=== PATIENT | female | born 2000 | race African-American/Black ===

== ENCOUNTER → 2023-10-07 15:41 | Outpatient (BNVA) | payer OTHER, SELFPAY | PROVIDERS: PCP Internal Medicine; Visit Provider Surgery ==

== ENCOUNTER → 2023-10-07 15:41 | Outpatient (BNVA) | payer OTHER, SELFPAY | PROVIDERS: PCP Internal Medicine; Visit Provider Surgery ==

== ENCOUNTER 2023-11-02 07:59 | Outpatient (AMB) | payer OTHER, SELFPAY ==
--- NOTE | 2023-11-02 09:24 | MHC.OFFVISWM ---
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 52.4 HPI Details Start time: 9.10am, End time: 9.55am ?I spent 40 minutes speaking with the patient on the phone plus an additional 5 minutes reviewing and updating records for a total of 45 minutes HPI Comments History of Present Illness Details Previous weight loss efforts: none Wakes up: 7am, Sleeps: 11pm Breakfast: skips Lunch: skips Dinner: 4pm (rice, meat) Snacks: 1 time before dinner (apple) Exercise: none Fluids: Coffee: (2 cups/day with sugar), tea: none, soda: regular coke, juice: none, ETOH: 1/week (beer 2 bottles/week) [facility] Medical History (Updated 11/02/23 @ 09:25 by Peewee Shane MD) Morbid obesity Surgical History (Updated 10/07/23 @ 16:11 by Janet Choudhury CMA) No history of previous surgery Social History (Updated 10/07/23 @ 16:11 by Janet Choudhury CMA) Alcohol intake: current Alcohol intake frequency: holidays/special occasions only Patient Tobacco Use Status: Never used Tobacco Assessment & Plan Assessment & Plan (1) Morbid obesity: Code(s): E66.01 - Morbid (severe) obesity due to excess calories Plan: 1.? Plan for lap sleeve gastrectomy. If diaphragmatic or ventral hernias are present at time of surgery, these will be repaired laparoscopically as well. Risks and complications were discussed in detail including possible conversion to an open procedure, anastomotic leak, bleeding requiring transfusion, small bowel obstruction, , DVT and pulmonary embolism, cardiac, or pulmonary complications, as terminal operations supervisor complications such as anastomotic ulcer, insufficient weight loss and vitamin deficiencies. I emphasized the importance of close follow-up, adherence to instructions and good communication. 2. Nutritional counseling. Start with 2 CELEBRATE REBUILD protein (buy at [facility]) shakes (ONE scoop EACH in 8oz low fat unsweetened almond milk each) at 8am-10am and 11am-1pm, 1 protein bar (CELEBRATE protein bars, buy at [facility] [employer]) at 2pm-4pm, dinner at 5pm (10 forks of protein and 10 forks of salad/vegetables) AND TWO more protein bars after dinner at 6pm-8pm and 9pm-11pm. So you do 2 protein shakes, 3 protein bars and one meal per day. Meal to include lean meat (beef, fish, pork, turkey, chicken), or samoan yogurt, or egg whites, or beans with a salad with olive oil and fruits (berries, pears, apples, kiwi). Avoid salt, breads, potatoes, rice, pasta, desserts. 3. Each shake would be drunk slowly, like coffee in a period of 2 hours. 4. Cut each bar in 4 pieces and eat each piece in 30min ?to make each bar last 2 hours. 5. I emphasized the importance of measuring accurately the food portion and measure it when serving the food in plate 6. The meal portions include 10 full-size forks of meat and 10 full-size forks of salad. You always eat the meat portion but you can replace up to 5 forks for salad/vegetables with rice, potatoes or pasta, or a fruit ?if you like. The less you do it the better weight loss will be. 7. One full-size fork is what it can be scooped on the fork without falling aside and not what can be bit with the fork. Use regular forks like those you find in a typical restaurant. 8.? Please send me weight measurements as soon as possible and then once a week. Always include your diet and exercise plan. 9. Start walking outside daily, tracking calories with a goal of 300 calories per day, daily. Goal is to burn 2000 calories per week on exercise, which means either 300 calories daily, or 400 calories 5 days per week, or 500 calories 4 days per week, or 650 calories 3 days per week. 10. The best choice would be to purchase a stationary bike, elliptical or treadmill at home that can track calories. Let me know if you do so I can give you an exercise plan. 11.?It is important of avoiding and for at least 18 months postoperatively and has been discussed at the infosession. 12. Goal is to lose at least 1.5-2lbs per week 13. Goal to lose 10% of your weight before surgery, which is about 31lbs. Ultimate weight goal: 283lbs before surgery 14. Please follow the diet plan exactly without any change. If you don't like something about the plan or you feel hungry you need to communicate with me so I can help you revise the plan. You should not change the plan yourself. Orders: Orders H Pylori Breath Test Today E66.01 - Morbid (severe) obesity due to excess calories Complete Blood Count Auto Diff Today E66.01 - Morbid (severe) obesity due to excess calories Lipid Panel Today E66.01 - Morbid (severe) obesity due to excess calories Zinc Today E66.01 - Morbid (severe) obesity due to excess calories C Reactive Protein Today E66.01 - Morbid (severe) obesity due to excess calories Vitamin B1 Today E66.01 - Morbid (severe) obesity due to excess calories XR chest 2V Today E66.01 - Morbid (severe) obesity due to excess calories FL upper GI w air Today E66.01 - Morbid (severe) obesity due to excess calories Insulin Today E66.01 - Morbid (severe) obesity due to excess calories Hemoglobin A1c Today E66.01 - Morbid (severe) obesity due to excess calories IRON PROFILE Today E66.01 - Morbid (severe) obesity due to excess calories Comprehensive Met. Panel Today E66.01 - Morbid (severe) obesity due to excess calories Vitamin B12 and Folate Today E66.01 - Morbid (severe) obesity due to excess calories Vitamin A Today E66.01 - Morbid (severe) obesity due to excess calories TSH reflex Free T4 Today E66.01 - Morbid (severe) obesity due to excess calories Ferritin Today E66.01 - Morbid (severe) obesity due to excess calories Vitamin D 25-OH Total Today E66.01 - Morbid (severe) obesity due to excess calories US abdomen comp w elastography Today E66.01 - Morbid (severe) obesity due to excess calories ECG 12 lead EKG Today E66.01 - Morbid (severe) obesity due to excess calories Referrals Behavioral Health Referral E66.01 - Morbid (severe) obesity due to excess calories Nutrition/Dietitian Referral E66.01 - Morbid (severe) obesity due to excess calories Telehealth Telehealth Location of provider rendering services: practice address Location of patient: address on file Patient Identification confirmed using: Name, : Yes Telehealth method: voice only Patient verbally consented to treatment: Yes Patient verbally consented to billing insurance company: Yes Patient informed of any privacy concerns related to visit: Yes Minutes spent on Phone/Video with Pt.: 45 Coding Level of Care Code Tele New Pt Level 4 (84327) Diagnoses Morbid obesity E66.01 Time Spent (min) 45
[2023-11-02 09:31] VITALS: BMI 52.3
== END 2023-11-02 10:36 | disposition home or self-care (01) ==
LOC: HO.HBS 07:59
PROVIDERS: PCP Internal Medicine; Visit Provider Surgery
DX: E66.01 Morbid (severe) obesity due to excess calories (principal)
CPT/HCPCS: 99204

== ENCOUNTER → 2023-11-02 07:59 | Outpatient (BNVA) | payer OTHER, SELFPAY | PROVIDERS: PCP Internal Medicine; Visit Provider Surgery ==

== ENCOUNTER 2023-11-09 09:01 | Outpatient (REF) | payer OTHER, SELFPAY ==
--- NOTE | ~2023-11-09 | XR_ITS ---
EXAMINATION: XR CHEST CLINICAL INFORMATION: Morbid obesity due to excess calories. COMPARISON: None available. TECHNIQUE: 2 views of the chest were obtained. FINDINGS: There is no gross pneumothorax. Lung volumes are low. Cardiac silhouette within normal limits. No gross pleural effusion. Limited visualization due to body habitus. No gross focal consolidation to suggest pneumonia. XR/XR chest 2V IMPRESSION: No gross focal consolidation to suggest pneumonia. Limited visualization due to body habitus.
--- NOTE | 2023-11-09 09:14 | ECG_ITS ---
Test Reason : obesity Blood Pressure : / mmHG Vent. Rate : 081 BPM Atrial Rate : 081 BPM P-R Int : 154 ms QRS Dur : 098 ms QT Int : 400 ms P-R-T Axes : 051 039 021 degrees QTc Int : 464 ms Normal sinus rhythm Incomplete right bundle branch block Borderline ECG No previous ECGs available Referred By: Peewee Shane Electronically Signed By:Guillaume Gallegos
[2023-11-09 09:39] LABS: MANUAL DIFF FLAG NO
[2023-11-09 10:15] LABS: Basophils Percent Auto 0.2 % (0-2); Eosinophils Absolute Auto 0.2 X10*3/uL (0.0-0.4); Eosinophils Percent Auto 3.2 % (0-4); Hematocrit 35.5 % (37.0-47.0); Hemoglobin 11.1 g/dl (12.0-16.0); Imm Gran Abs Auto 0.01 X10*3/uL (0.00-0.03); Imm Gran Pct Auto 0.2 % (0.0-0.4); Lymphocytes Absolute Auto 3.3 X10*3/uL (1.2-4.9); Lymphocytes Percent Auto 54.2 % (20-40); Mean Corpuscular HGB Conc 31.3 g/dl (31.0-35.0); Mean Corpuscular Hemoglobin 26.9 pg (27.0-33.0); Mean Corpuscular Volume 86.2 fL (80.0-98.0); Mean Platelet Volume 9.7 fL (9.4-12.3); Monocytes Absolute Auto 0.4 X10*3/uL (0.1-1.2); Monocytes Percent Auto 6.6 % (2-11); Neutrophils Absolute Auto 2.2 x10*3/uL (2.0-8.3); Neutrophils Percent Auto 35.6 % (45-73); Platelet Count 369 X10*3/uL (160-400); Red Blood Count 4.12 X10*6/uL (4.20-5.50); Red Cell Distribution Width 13.6 % (11.0-16.0)
[2023-11-09 10:29] LABS: Estimated Average Glucose 117 mg/dL; Hemoglobin A1c % 5.7 % (<6.0)
[2023-11-09 11:08] LABS: Alanine Aminotransferase 21 U/L (0-31); Albumin Level 3.8 g/dL (3.5-5.0); Alkaline Phosphatase 79 U/L (39-117); Anion Gap 11 (12-20); Aspartate Amino Transferase 17 U/L (5-31); Bilirubin Total 0.3 mg/dL (0.0-1.0); Blood Urea Nitrogen 7 mg/dL (9-16); C Reactive Protein 1.75 mg/dL (< or = 0.50); Calcium 8.8 mg/dL (8.4-10.2); Carbon Dioxide 25 mmol/L (22-29); Chloride 108 mmol/L (96-108); Cholesterol 184 mg/dL (<200); Estimated Glomerular Filt Rate > 60; Glucose Random 83 mg/dL (60-115); HDL Cholesterol 42 mg/dL (>40); Iron 80 mcg/dL (30-160); LDL Cholesterol Calculated 125 mg/dL (<100); Percent Iron Saturation 26 % (15-50); Potassium 3.9 mmol/L (3.3-5.1); Sodium 140 mmol/L (135-145); Total Iron Binding Capacity 309 mcg/dL (228-428); Triglycerides 89 mg/dL (<150); Unsaturated Iron Binding 229 ug/dL
[2023-11-09 11:18] LABS: Ferritin 57 ng/mL (10-122); Insulin 24 uU/mL (2-29); TSH reflex Free T4 1.39 uIU/mL (0.32-4.0); Vitamin D 25-OH Total 7.1 ng/mL (>30)
[2023-11-09 11:26] LABS: Folate 9.3 ng/mL (> or = 4.0); Vitamin B12 214 pg/mL (200-900)
[2023-11-11 23:59] LABS: Zinc 63 mcg/dL (60-130)
[2023-11-13 05:34] LABS: Vitamin A 31 mcg/dL (38-98)
[2023-11-13 10:43] LABS: Vitamin B1 6 nmol/L (8-30)
== END 2023-11-09 09:02 | disposition home or self-care (01) ==
LOC: HO.LAB 09:01
PROVIDERS: Visit Provider Surgery
DX: E66.01 Morbid (severe) obesity due to excess calories (principal)
CPT/HCPCS: 36415; 71046; 80053; 80061; 82306; 82607; 82728; 82746; 83036; 83525; 83540; 84425; 84443; 84590; 84630; 85025; 86140; 93005

== ENCOUNTER → 2023-11-09 09:14 | Outpatient (BNV) | payer OTHER, SELFPAY | PROVIDERS: Visit Provider Internal Medicine Cardiovascular Disease | DX: E66.01 Morbid (severe) obesity due to excess calories (principal) | CPT/HCPCS: 93010 ==

== ENCOUNTER 2023-11-18 08:19 | Outpatient (REF) | payer OTHER, SELFPAY ==
--- NOTE | ~2023-11-18 | US_ITS ---
EXAMINATION: US COMPLETE ABDOMEN WITH LIVER ELASTOGRAPHY CLINICAL INFORMATION: Obesity. COMPARISON: None available. TECHNIQUE: Real-time imaging of the abdominal viscera. Noninvasive ultrasound liver fibrosis assessment is performed using Aster ElastPQ point quantification shear wave elastography (2D-SWE) with a C5-2 MHz transducer. Multiple elastography samples are obtained. Imaging is somewhat limited secondary to difficulty with breathing instructions. FINDINGS: PANCREAS: Normal. The visualized pancreatic head and body are normal in appearance. The remainder of the pancreas is obscured from visualization by the overlying bowel gas. ABDOMINAL AORTA: The proximal and middle aortic segments are normal in caliber. The distal segment is obscured by overlapping bowel gas. INFERIOR VENA CAVA: Visualized portions are normal. LIVER: The liver demonstrates normal size, contour and echogenicity. No focal lesion or intrahepatic biliary duct dilatation. The right lobe measures 17.2 cm in length. The left lobe measures 12.0 cm in length. Portal flow is towards the liver (hepatopetal). Shear wave liver elastography median stiffness is 1.41 m/s (reference: normal median stiffness is 1.3 m/s or less). IQR/median stiffness to assess sampling precision is 0.13 (reference: good quality data set is IQR/median stiffness of 0.15 or less). GALLBLADDER: Multiple layering, shadowing gallstones are seen. The gallbladder is physiologically distended without evidence of sludge, polyps, wall thickening or pericholecystic fluid. COMMON BILE DUCT: Normal in caliber measuring 0.4 cm in diameter. RIGHT KIDNEY: Normal. No hydronephrosis. No renal calculi or focal parenchymal lesions. The kidney measures 12.6 cm in maximum dimension. LEFT KIDNEY: Normal. No hydronephrosis. No renal calculi or focal parenchymal lesions. The kidney measures 10.6 cm in maximum dimension. SPLEEN: Normal. The spleen measures 9.8 cm in maximum dimension. FREE FLUID: None. US/US abdomen comp w elastography IMPRESSION: 1. There is generalized increase in hepatic echotexture, consistent with fatty infiltration or hepatocellular disease. Please correlate clinically. No focal hepatic mass or intrahepatic biliary dilatation is seen. 2. Liver elastography: In the absence of other known clinical signs, measurements rule out compensated advanced chronic liver disease. If there are known clinical signs, further testing may be needed for confirmation. 3. There is cholelithiasis. 4. Technically limited examination, in particular of the abdominal great vessels. REFERENCE: Society of Radiologists in Ultrasound Liver Stiffness Thresholds (2020): LIVER STIFFNESS THRESHOLDS: *Liver Stiffness equal or less than 1.3 m/s: High probability of being normal. *Liver Stiffness less than 1.7 m/s: In the absence of other known clinical signs, rules out compensated advanced chronic liver disease. *Liver Stiffness 1.7-2.1 m/s: Suggestive of compensated advanced chronic liver disease but need further test for confirmation. *Liver Stiffness over 2.1 m/s: Rules in compensated advanced chronic liver disease. *Liver Stiffness over 2.4 m/s: Suggestive of clinically significant portal hypertension. QUALITY OF DATA SET: *IQR/Median value equal or less than 0.15 implies a quality data set. *IQR/Median value over 0.15 implies a poor quality data set. SIGNIFICANT CHANGE FROM PRIOR EXAM: Significant change if liver stiffness measurement is 10% or greater from prior exam. OTHER CONSIDERATIONS: The stage of liver fibrosis may be overestimated in the setting of acute hepatitis, liver inflammation, elevated liver function tests, hepatic vascular congestion, obstructive cholestasis, non-fasting state, and infiltrative diseases such as amyloidosis and lymphoma. In some patients with NAFLD, the liver stiffness thresholds for compensated advanced chronic liver disease may be lower. In causes other than viral hepatitis and NAFLD, liver stiffness thresholds are not well established.
== END 2023-11-18 08:20 | disposition home or self-care (01) ==
LOC: HO.US 08:19
PROVIDERS: PCP Internal Medicine; Visit Provider Surgery
DX: E66.01 Morbid (severe) obesity due to excess calories (principal); K80.20 Calculus of gallbladder without cholecystitis without obstruction
CPT/HCPCS: 76700; 76981

== ENCOUNTER 2023-11-18 10:27 | Outpatient (AMB) | payer OTHER, SELFPAY ==
--- NOTE | 2023-11-18 10:14 | A.OFFWM_ITS ---
Intake Intake Visit Reasons: VIDEO BH Intake Allergies No Known Allergies Allergy (Verified 11/02/23 09:24) [facility] Medical History (Updated 11/17/23 @ 18:57 by Peewee Shane MD) Morbid obesity Surgical History (Updated 10/07/23 @ 16:11 by Janet Choudhury CMA) No history of previous surgery Social History (Updated 10/07/23 @ 16:11 by Janet Choudhury CMA) Alcohol intake: current Alcohol intake frequency: holidays/special occasions only Patient Tobacco Use Status: Never used Tobacco Behavioral Health Assessment Weight Management Therapy Therapy Notes Details PT is a 23 year old, female who presents for BH assessment as part of surgical weight loss program. PT shared her interest in barbaric surgery as she is a mother and obesity has been impacting her physical functioning; she wants to be healthy and have a healthy and active lifestyle. PT denied any history of mental health treatment and or past hospitalization/crisis for behavioral health. Denies any safety concerns around SI and/or self-other harm, also there is no history of substance use reported. Scores from BES suggest minimal risk for binge eating behavior. PHQ- scores also showed no active symptoms/concerns with depression. However, the Patient has disclosed a history and ongoing issues with emotional eating, having a hard time managing her cravings for food and feel she is still not fully adjusted to meal plan and other guidelines provided by provider so, She will be seen again in a month for support. Presenting Concerns Referral Source WMP Provider. PT sees Dr. Conroy Reason for referral Completion of behavioral health assessment as part of process for weight-loss surgery. Precipitating Event Obesity was causing her to have a hard time managing motherhood demands. Living Situation Current Living Situation Rent At risk of losing current housing? No Satisfied with current living situation? Yes Comments Pt lives with her partner, mother and her 1 year old son. Food/Weight/Diet Expectations of change The initial goal is to lose 10% of her weight before surgery, which is about 31lbs. Ultimate weight goal: 283lbs before surgery. She wants to lose at least 50 lbs. But her main goal is to be healthy. History/Relationship with food Pt reports her issue is that she mostly snacks here and there instead of having steady meals. And, when had meals these were not healthy. Example of meals before starting the program. Breakfast: @9am, coffee with bread. AM snack: @10 cereal with milk or a cookie. Lunch: @4pm Rice/Chicken Dinner: @10pm fast food ([employer], [employer]). History/Relationship with weight Pt reports she has always been overweight, however, Before having her son she was able to lose weight easily. After having her child and using a new control her appetite has changed and she has been gaining more weight. The lowest weight in the last 5 years was 190 lbs, and her highest weight was 315 lbs. History/Relationship with dieting Has mainly tried to Restrict her eating or stop eating and then only have 1 meal a day for several weeks at a time. Pt did not notice major changes. Binge Eating Do you frequently eat large amounts of food in short periods of time, not feeling physically hungry? No Do you feel out of control when you eat a large amount of food in a short period of time? No Do you eat large amounts of food rapidly and typically alone? No Night Eating Do you wake up at least once during the night to eat? No If you wake up in the night, do you find that it is necessary to eat something in order to fall back asleep? No Do you have little or no appetite in the morning and feel very hungry in the evening, often overeating between dinner and when you go to bed? Yes Social History Family history and relationship PT is over a year ago, they have 1 child. Pt has 6 siblings. Her parents are alive, her mother lives with her. Pt describes good family relationships in general. 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 Developmental history and status Within normal limits. Social support Family. Community support Providers. Mu-Ism/Spirituality Raised as Evangelic but currently doesn't practice. Cultural/Ethnic information [place] is from the [place]. Living in the [place] ago. [place] is her primary language. Legal Involvement and History Current or historical involvement with the legal system? None reported. Education Highest grade completed 12th grade - HS. Preferred learning style Learn by doing Currently enrolled in educational program? No Interested in further educational program? Yes Educational Interests/Skills PT Wants to get her degree in nursing. 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 ) Wants help to find employment? No Meaningful activities Family activities, listen to music, watch TV. Financial Situation Describe current financial situation Comfortable Financial assistance? Food [place] and [place]) Service Service? No Mental Health and Addiction Treatment Current/Past substance abuse? No Comments Social drinking (2-3 beers 2-3 times at month) Current/Past addictive behavior concerns? No Psychiatric history None reported. Never hospitalized for mental health, denies ever being in crisis, or had any self-harm/self-harm experience. PT also denies any Hx or concerns with SI/SA. Medical and Physical Health Summary Additional Medical History not covered in history None reported Sexual History concerns None reported Physical exam in the last year? Yes Pain Screening Current pain? No Pain in the last few months? No Medications Is the patient compliant with medications? Not applicable Does the patient have Salas Guardian in place? Not applicable Does the patient use complimentary health approaches? No Trauma/Abuse History History of trauma? No Questionnaires PHQ-9 Over the last 2 weeks, how often have you been bothered by any of the following problems? 1. Little interest or pleasure in doing things: not at all 2. Feeling down, depressed, or hopeless: not at all 3. Trouble falling or staying asleep, or sleeping too much: not at all 4. Feeling tired or having little energy: not at all 5. Poor appetite or overeating: not at all 6. Feeling bad about yourself - or that you are a failure or have let yourself or your family down: not at all 7. Trouble concentrating on things, such as reading the newspaper or watching television: not at all 8. Moving or speaking so slowly that other people could have noticed. Or the opposite - being so fidgety or restless that you have been moving around a lot more than usual: not at all 9. Thoughts that you would be better off or of hurting yourself in some way: not at all Total score: 0 Depression Screening Interpretation: Negative Depression Screening Done: Yes 28320 - PHQ-9 Billing: Yes Source: Developed by Drs. Shailesh France, Thais Lopez, Siddhartha Menchaca and colleagues, with an educational mellissa from [employer]. Binge Eating Scale Group 1 A. I don't feel self-conscious about my wt. or body size when I'm with others. B. I feel concerned about how I look to others, but it normally does not make me fell disappointed with myself C. I do get self-conscious about my appearance and wt. which makes me feel disappointed in myself. D. I feel very self-conscious about my wt. and frequently I feel intense shame and disgust for myself. I try to avoid social contacts because of my self- consciousness. Response Group 1: B Group 2 A. I don't have any difficulty eating slowly in the proper manner. B. Although I seem to gobble down foods, I don't end up feeling stuffed because of eating to much. C. At times, I tend to eat quickly and then, I feel uncomfortably full afterwards. D. I have the habit of bolting down my food, without really chewing it. When this happens I usually feel uncomfortably stuffed because I've eaten to much. Response Group 2: A Group 3 A. I feel capable to control my eating urges when I want to. B. I feel like I have failed to control my eating more than the average person. C. I feel utterly helpless when it comes to feeling in control of my eating urges. D. Because I feel so helpless about controlling my eating I have become very desperate about trying to get control. Response Group 3: A Group 4 A. I don't have the habit of eating when I'm bored. B. I sometimes eat when I'm bored, but often I'm able to get busy and get my mind off food. C. I have a regular habit of eating when I'm bored, but occasionally, I can use some other activity to get my mind off eating. D. I have a strong habit of eating when I'm bored. Nothing seems to help me breath the habit. Response Group 4: B Group 5 A. I'm usually physically hungry when I eat something. B. Occasionally, I eat something on impulse even though I really am not hungry. C. I have the regular habit of eating foods, that I might not really enjoy, to satisfy a hungry feeling even though physically, I don't need the food. D. Although I'm not physically hungry, I get a hungry feeling in my mouth that only seems to be satisfied when I eat a food, like sandwich, that fills my mouth. Sometimes, when I eat the food to satisfy my mouth hunger, I then spit the food out so I won't gain weight. Response Group 5: A Group 6 A. I don't feel any guilt or self-hate after I overeat. B. After I overeat, occasionally I feel guilt or self-hate. C. Almost all the time I experience strong guilt or self-hate after I overeat. Response Group 6: B Group 7 A. I don't lose total control of my eating when dieting even after periods when I overeat. B. Sometimes when I eat a forbidden food on a diet, I feel like I blew it and eat even more. C. Frequently, I have the habit of saying to myself, I've blown it now, why not go all the way, when I overeat on a diet. When that happens I eat more. D. I have a regular habit of starting a strict diets for myself but I break the diets by going on an eating binge. My life seems to be either a feast or famine. Response Group 7: A Group 8 A. I rarely eat so much food that I feel uncomfortably stuffed afterwards. B. Usually about once a month, I each such a quantity of food, I end up feeling very stuffed. C. I have regular periods during the month when I eat large amounts of food, either at mealtime or at snacks. D. I eat so much food that I regularly feel quite uncomfortable after eating and sometimes a bit nauseous. Response Group 8: D Group 9 A. My level of calorie intake does not go up very high or go down very low on a regular basis. B. Sometimes after I overeat, I will try to reduce my caloric intake to almost nothing to compensate for the excess calories I've eaten. C. I have a regular habit of overeating during the night. It seems that my routine is not to be hungry in the morning but overeat in the evening. D. In my adult years, I have had week-long periods where I practically starve myself. This follows periods when I overeat. It seems I live a life of either feast or famine. Response Group 9: C Group 10 A. I usually am able to stop eating when I want to. I know when enough is enough. B. Every so often, I experience a compulsion to eat which I can't seem to control. C. Frequently, I experience strong urges to eat which I seem unable to control, but at other times I can control my eating urges. D. I feel incapable of controlling urges to eat. I have a fear of not being able to stop eating voluntarily. Response Group 10: A Group 11 A. I don't have any problem stopping eating when I feel full. B. I usually can stop eating when I feel full but occasionally overeat leaving me feeling uncomfortably stuffed. C. I have a problem stopping eating once I start and usually I feel uncomfortably stuffed after I eat a meal. D. Because I have a problem not being able to stop eating when I want, I sometimes have to induce vomiting to relieve my stuffed feeling. Response Group 11: B Group 12 A. I seem to eat just as much when I'm with others, Family social gatherings as when I'm by myself. B. Sometimes, when I'm with other persons, I don't eat as much as I want to eat because I'm self-conscious about my eating. C. Frequently, I eat only a small amount of food when others are present, because I'm very embarrassed about my eating. D. I feel so ashamed about overeating that I pick times to overeat when I know no one will see me. I feel like a closet eater. Response Group 12: B Group 13 A. I eat three meals a day with only an occasional between meal snack. B. I eat 3 meals a day, but I also normally snack between meals. C. When I am snacking heavily, I get in the habit of skipping regular meals. D. There are regular periods when I seem to be continually eating, with no planned meals. Response Group 13: D Group 14 A. I don't think much about trying to control unwanted eating urges. B. At least some of the time, I feel my thoughts are pre-occupied with trying to control my eating urges. C. I feel that frequently I spend much time thinking about how much I ate or about trying not to eat anymore. D. It seems to me that most of my waking hours are pre-occupied by thoughts about eating or not eating. I feel like I'm constantly struggling not to eat. Response Group 14: C Group 15 A. I don't think about food a great deal. B. I have strong craving for food but they last only for brief periods of time. C. I have days when I can't seem to think about anything else but food. D. Most of my days seem to be pre-occupied with thoughts about food. I feel like I live to eat. Response Group 15: A Group 16 A. I usually know whether or not I'm physically hungry. I take the right portion of food to satisfy me. B. Occasionally, I feel uncertain about knowing whether or not I'm physically hungry. A these times it's hard to know how much food I should take to satisfy me. C. Even though I might know how many calories I should eat, I don't have any idea what is a normal amount of food for me. Response Group 16: B Binge Eating Score: 16 Score less than 17 Minimal Risk Score between 18-26 Moderate Risk Score between 27-46 High Risk Assessment & Plan Assessment & Plan (1) Eating disorder, unspecified: Code(s): F50.9 - Eating disorder, unspecified Plan PT is cleared, however she will be seen again in about a month as she has expressed ongoing challenges managing cravings and a history of emotional eating. Next corey: 12/16/2023 at 10am - telehealth. Telehealth Telehealth Location of provider rendering services: other (Home office.) Location of patient: address on file Patient Identification confirmed using: Name, : Yes Telehealth method: video Patient verbally consented to treatment: Yes Patient verbally consented to billing insurance company: Yes Patient informed of any privacy concerns related to visit: No Minutes spent on Phone/Video with Pt.: 60 Coding Level of Care Code New Pt Tele Psy Diag Eval (00713) Patient Type New Diagnoses Eating disorder, unspecified F50.9 Time Spent (min) 60
== END 2023-11-18 11:00 | disposition home or self-care (01) ==
LOC: HO.HBST 10:27
PROVIDERS: PCP Internal Medicine; Visit Provider Counselor Mental Health
DX: F50.9 Eating disorder, unspecified (principal)
CPT/HCPCS: 90791

== ENCOUNTER 2023-12-02 08:34 | Day surgery (SDC) | payer OTHER, SELFPAY ==
[2023-11-26 15:26] VITALS: BMI 52.3
[2023-12-02 08:43] VITALS: BMI 50.2
[2023-12-02 09:04] VITALS: BP 123/68; PULSE 81; RESP 16; TEMP 36.2; O2SAT 97
[2023-12-02] MEDS: Lactated Ringers 1,000 ML 80 ML IVCONT (09:05)
[2023-12-02 09:14] LABS: UPreg QC Valid YES; Urine Pregnancy NEGATIVE (NEGATIVE)
--- NOTE | 2023-12-02 09:59 | P.BOP_ITS ---
Brief Operative Note Date of Service: 12/02/23 Pre-op diagnosis: Anemia Post-op diagnosis: same Procedure: PROCEDURE DATE: 12/02/2023 PREOPERATIVE DIAGNOSIS: Anemia POSTOPERATIVE DIAGNOSIS: ?Same as above. 1) Normal endoscopy PROCEDURE: Urxwaauf-[id number]-fvgcoykzabkt with biopsies Surgeon: ?Eusebio Shane M.D.. Ph.D. Senior Business Development Manager: None ? Anesthesia: IV sedation Estimated blood loss: ?Minimal FINDINGS AND PROCEDURE: ? OPERATIVE INDICATIONS: ?The patient is a 23 year old female known to me who is interested in bariatric surgery. The patient was found to have anemia. Based on this information I recommended an upper endoscopy to evaluate the patient's symptoms. Risks and complications of the surgery were discussed with the patient in advance particularly the possibility of perforation or bleeding that may require surgical intervention. The patient understood the risks and was in agreement with the plan. ? PROCEDURE: After informed consent was obtained by the patient, the patient was ?transferred to the Operating Room and was placed in the supine position.? After successful induction of IV sedation, a mouth block was inserted and the patient was placed in the left lateral decubitus position. An upper endoscopy was performed next, the oropharynx and esophagus appeared within the normal limits. There was no hiatal hernia. The z-line was smooth. Two biopsies were obtained from the distal esophagus 2-3 cm proximal to the GE junction and two additional biopsies from the GE junction. The stomach was entered and it appeared to be of normal size. There was no gastritis at distal antrum. There was no stricture or ulcer. Biopsies were obtained from the proximal sleeve as well as the gastric dundus and the antrum. No significant bleeding was noted from any of the biopsy sites. The scope was then advanced into the duodenum which appeared to be normal as well. Retroflexion of the scope revealed a normal GE junction anatomy. At that point the duodenum ?and the sleeve were decompressed and the scope was withdrawn from the patient's mouth. The patient extubated and was transferred in stable condition to the Recovery Room for further care. I was present and performed all steps of the procedure. There were no residents to assist with this case. Eusebio Shane M.D., Ph.D. Surgeon: Peewee Shane MD Anesthesia: MAC Was an Senior Business Development Manager used for this Procedure?: No Estimated blood loss (mL): 0 IV fluids (mL): 400 Urine output (mL): 0 (No dozier to record output) Pathology: other (1) antrum x1, 2) gastric fundus x1, 3) GE junction x2, 4) distal esophagus x2) Condition: stable Disposition: PACU
--- NOTE | 2023-12-02 09:59 | MHC.SHP ---
Pre-Procedural Eval Section A - 24 Hr Update-Section A only Date of Service: 12/02/23 The patient is an INPATIENT: No The patient has been examined within 24 hours of the surgical procedure. The History & Physical has been completed within 30 days and I have reviewed it.: Yes Section B - Complete if H&P > 30 days Chief Complaint: Morbid (severe) obesity due to excess calories Details of Present Illness: anemia Relevant Family History (Specify if Yes): No Relevant Social History: None Present Medications: None Medical History: No relevant PMH History of Previous Operations: No relevant previous surgery Allergies: Allergies Allergy/AdvReac Type Severity Reaction Status Date / Time No Known Allergies Allergy Verified 12/02/23 08:54 Review of Systems Sugical H&P ROS: Negative: Constitution, Cardiovascular, Respiratory, Neurological, Psychiatric, Hem-Onc, Allergic/Immunologic, Gastrointestinal, Genitourinary, Musculoskeletal, Integumentary, Endocrine and Eyes/Ears/Nose/Throat Exam Surgical H&P Exam: Normal: HEENT, Normal: Heart, Normal: Lungs, Normal: Extremities, Normal: Abdomen, Normal: Skin and Normal: Neurological Plan Diagnosis/Plan: Unchanged (EGD to assess etiology of anemia. Risks of bleeding and perforation were discussed with the patient and she is in agreement with the plan.) I have reviewed the history and physical and performed a pertinent physical examination on my patient. No changes have occurred unless specified. Time Spent With Patient Time: Total time managing care of this patient today ____ minutes.
--- NOTE | 2023-12-02 10:24 | HO.ANESPROP2 ---
HPI - Anesthesia Eval Consult details Narrative: 23 yo female patient for EGD PMFSH Active Problems Active Problems: All Active Problems Vitamin B1 deficiency (Acute) Vitamin B12 deficiency (Acute) Vitamin A deficiency (Acute) Vitamin D deficiency (Acute) Anemia (Acute) Morbid obesity (Acute) BMI 50.3 Denies RAVI Past Medical History Medical History Morbid obesity Family History Family history of problems with anesthesia: No Surgical History Surgical History No history of previous surgery History of Problems with Anesthesia: No Social History Social History (Updated 10/07/23 @ 16:11 by Janet Choudhury CMA) Alcohol intake: current Alcohol intake frequency: holidays/special occasions only Patient Tobacco Use Status: Never used Tobacco Use of substances other than those prescribed or required for medical reasons: No Are you DNR?: No Advance Directives: No Advance Directives Information Provided: Yes Meds Allergies Allergy/AdvReac Type Severity Reaction Status Date / Time No Known Allergies Allergy Verified 12/02/23 08:54 Active Medications: Current Medications Lactated Ringer's (Lr) 1,000 mls @ 80 mls/hr IVCONT .[id number] LUIS Last Admin: 12/02/23 09:05 Dose: 80 mls/hr Exam Height,Weight and Vital Signs: Height 5 ft 5 in Weight 136.985 kg Last Vital Signs Temp 97.1 F 12/02/23 09:04 Pulse 81 12/02/23 09:04 Resp 16 12/02/23 09:04 BP 123/68 12/02/23 09:04 Pulse Ox 97 12/02/23 09:04 O2 Del Method Room Air 12/02/23 09:04 Pertinent Lab Results Pertinent Lab Results: Laboratory Tests 12/02/23 08:50 Urine Test NEGATIVE Airway Mallampati Class: II TM Dist: >3cm Neck ROM: Full Loose/Missing/Broken Teeth: No Heart: RRR Lungs: CTAB Assessment and Plan Assessment Anesthesia Assessment: Anesthesia Plan Discussed and Chart Reviewed Final Anesthetic Review Family History of Problems with Anesthesia: No History of Problems with Anesthesia: No NPO: Yes ASA Class: III Final Preanesthetic Review: No Changes in Pt Med Stat, Meds/Allgs Chart Reviewed, Consent Obtained/Reviewed and Anes Risks/Benef Reviewed Patient Risk: Intermediate Procedure Risk: Low Assessment/Block/Sedation in SS: Assess/Block/Sedation-SS Anesthetic Plan Anesthetic Plan: MAC: Disposition: Standard PACU
[2023-12-02 10:52] VITALS: BP 98/48; PULSE 90; RESP 24; TEMP 36.9; O2SAT 97
[2023-12-02 11:07] VITALS: BP 111/70; PULSE 62; RESP 20; O2SAT 97
[2023-12-02 11:22] VITALS: BP 108/58; PULSE 68; RESP 20; O2SAT 97
[2023-12-02 11:37] VITALS: BP 108/51; PULSE 60; RESP 20; TEMP 36.2; O2SAT 100
== END 2023-12-02 12:30 | disposition home or self-care (01) ==
PROVIDERS: PCP Internal Medicine; Visit Provider Surgery
PROC: 0DJ08ZZ Inspection of Upper Intestinal Tract, Via Natural or Artificial Opening Endoscopic (ICD-10-PCS; CPT 43235; principal; 2023-12-02 10:20)
DX: D64.9 Anemia, unspecified (principal); E66.01 Morbid (severe) obesity due to excess calories; Z68.43 Body mass index [BMI] 50.0-59.9, adult
CPT/HCPCS: 43239; 81025; 88305; 88313; 88342; J1596; J2250; J2704

== ENCOUNTER → 2023-12-02 08:34 | Outpatient (BNV) | payer OTHER, SELFPAY | PROVIDERS: PCP Internal Medicine; Visit Provider Surgery | DX: D64.9 Anemia, unspecified (principal) | CPT/HCPCS: 43239 ==

== ENCOUNTER 2023-12-04 07:58 | Outpatient (AMB) | payer OTHER, SELFPAY ==
--- NOTE | 2023-12-04 08:23 | A.OFFVIS_ITS ---
VS Expanded 12/04/23 08:25 Height 5 ft 5 in Weight 302 lb BMI 50.2 Intake Visit Reasons: TV Pre Op Lap [place] 12/16/23 Allergies No Known Allergies Allergy (Verified 12/04/23 08:26) Medication List - Last Reconciled 12/04/23 by Peewee Shane MD cholecalciferol (vitamin D3) 125 mcg PO DAILY iron,carbonyl-vitamin C 65 mg iron- 125 mg (Vitron-C) 1 tab PO DAILY mecobalamin (vitamin B12) 1,000 mcg sublingual DAILY thiamine HCl (vitamin B1) 100 mg PO DAILY vitamin A palmitate 10,000 units PO DAILY HPI HPI TV Pre Op Lap [place] 12/16/23: Details: Start time: 8.05am, End time: 8.35am ?I spent 25 minutes speaking with the patient on the phone plus an additional 5 minutes reviewing and updating records for a total of 30 minutes HPI Comments Details: Patient has cholelithiasis on abdominal ultrasound and a laparoscopic cholec ystectomy was recommended Overall weight loss: 12.6lbs, or 4% TBWL Is doing 2 Celebrate shakes with 1 scoop each in 8oz almond milk, one Celebrate bar and a meal. Exercise: none PFSH Medical History (Updated 12/04/23 @ 08:29 by Peewee Shane MD) Morbid obesity Surgical History No history of previous surgery Social History (Updated 10/07/23 @ 16:11 by Janet Choudhury CMA) Alcohol intake: current Alcohol intake frequency: holidays/special occasions only Patient Tobacco Use Status: Never used Tobacco Telehealth Telehealth Location of provider rendering services: practice address Location of patient: address on file Patient Identification confirmed using: Name, : Yes Telehealth method: voice only Patient verbally consented to treatment: Yes Patient verbally consented to billing insurance company: Yes Patient informed of any privacy concerns related to visit: Yes Minutes spent on Phone/Video with Pt.: 30 Assessment & Plan Assessment & Plan (1) Cholelithiasis: Code(s): K80.20 - Calculus of gallbladder without cholecystitis without obstruction Category: Medical Qualifiers: Cholelithiasis location: gallbladder Cholecystitis presence: without cholecystitis Biliary obstruction: without biliary obstruction Qualified Code(s): K80.20 - Calculus of gallbladder without cholecystitis without obstruction Plan: 1. The patient was not aware of having a cholelithiasis. We also discussed that bariatric surgery may accelerate the onset of symptoms of cholelithiasis and that is why elective cholecystectomy in indicated and recommended. We discussed in detail the potential complications and their management including bleeding, bile leak, pancreatitis and major bile duct injury. 2. Avoid any aspirin, motrin, aleve, ibuprofen, advil, meloxicam. They can cause bleeding. You can use Tylenol 3. Do your preoperative blood work nay day between Thursday12/07/23 and Thursday12/11/23. No need to fast. 4. Emphasized the correct diet plan using an additional 2 protein bars after dinner 5. Send me pictures daily of meal plate after you measure it and before you eat it 6. Start walking outside daily tracking calories wiht your watch for a goal of 300 calories per day 7. Buy a stationary bike
[2023-12-04 08:25] VITALS: BMI 50.2
== END 2023-12-04 08:36 | disposition home or self-care (01) ==
LOC: HO.HBS 07:58
PROVIDERS: PCP Internal Medicine; Visit Provider Surgery
DX: K80.20 Calculus of gallbladder without cholecystitis without obstruction (principal)
CPT/HCPCS: 99214

== ENCOUNTER → 2023-12-04 07:58 | Outpatient (BNVA) | payer OTHER, SELFPAY | PROVIDERS: PCP Internal Medicine; Visit Provider Surgery | DX: E66.01 Morbid (severe) obesity due to excess calories (principal) ==

== ENCOUNTER 2023-12-10 10:19 | Outpatient (REF) | payer OTHER, SELFPAY ==
[2023-12-10 11:07] LABS: MANUAL DIFF FLAG NO
[2023-12-10 11:33] LABS: Basophils Percent Auto 0.3 % (0-2); Eosinophils Absolute Auto 0.3 X10*3/uL (0.0-0.4); Eosinophils Percent Auto 4.3 % (0-4); Hematocrit 37.2 % (37.0-47.0); Imm Gran Abs Auto 0.01 X10*3/uL (0.00-0.03); Imm Gran Pct Auto 0.2 % (0.0-0.4); Lymphocytes Absolute Auto 3.5 X10*3/uL (1.2-4.9); Mean Corpuscular HGB Conc 32.3 g/dl (31.0-35.0); Mean Corpuscular Hemoglobin 27.5 pg (27.0-33.0); Mean Corpuscular Volume 85.3 fL (80.0-98.0); Mean Platelet Volume 10.3 fL (9.4-12.3); Monocytes Absolute Auto 0.5 X10*3/uL (0.1-1.2); Monocytes Percent Auto 7.1 % (2-11); Neutrophils Absolute Auto 2.1 x10*3/uL (2.0-8.3); Neutrophils Percent Auto 33.1 % (45-73); Platelet Count 375 X10*3/uL (160-400); Red Blood Count 4.36 X10*6/uL (4.20-5.50); Red Cell Distribution Width 13.6 % (11.0-16.0); White Blood Count 6.3 X10*3/uL (4.8-10.8)
[2023-12-10 11:45] LABS: Partial Thromboplastin Time 34.5 SEC (26.0-36.8)
[2023-12-10 12:16] LABS: Alanine Aminotransferase 29 U/L (0-31); Albumin Level 4.1 g/dL (3.5-5.0); Alkaline Phosphatase 93 U/L (39-117); Anion Gap 6 (12-20); Aspartate Amino Transferase 24 U/L (5-31); Bilirubin Total 0.3 mg/dL (0.0-1.0); Blood Urea Nitrogen 11 mg/dL (9-16); Calcium 9.2 mg/dL (8.4-10.2); Carbon Dioxide 31 mmol/L (22-29); Chloride 108 mmol/L (96-108); Estimated Glomerular Filt Rate > 60; Glucose Random 87 mg/dL (60-115); Iron 56 mcg/dL (30-160); Percent Iron Saturation 20 % (15-50); Potassium 3.8 mmol/L (3.3-5.1); Sodium 141 mmol/L (135-145); Total Iron Binding Capacity 282 mcg/dL (228-428); Total Protein 7.5 g/dL (6.5-8.0); Unsaturated Iron Binding 226 ug/dL
== END 2023-12-10 10:20 | disposition home or self-care (01) ==
LOC: HO.LAB 10:19
PROVIDERS: Physician Assistant Surgical; Visit Provider Surgery
DX: K80.20 Calculus of gallbladder without cholecystitis without obstruction (principal)
CPT/HCPCS: 36415; 80053; 83540; 85025; 85730

== ENCOUNTER 2023-12-16 08:36 | Day surgery (SDC) | payer OTHER, SELFPAY ==
[2023-12-14 07:49] VITALS: BMI 50.2
--- NOTE | 2023-12-14 14:20 | HO.ANESPROP2 ---
Documented by User: Adriana Foy NP 12/14/23 14:21 HPI - Anesthesia Eval Consult details Narrative: 23yo F for Cholecystectomy Laparoscopic s/p EGD 11/2023 with TIVA PMFSH Active Problems Active Problems: All Active Problems H. pylori infection (Acute) Cholelithiasis (Acute) Vitamin B1 deficiency (Acute) Vitamin B12 deficiency (Acute) Vitamin A deficiency (Acute) Vitamin D deficiency (Acute) Anemia (Acute) Morbid obesity (Acute) Past Medical History Medical History Morbid obesity Family History Family history of problems with anesthesia: No Surgical History Surgical History No history of previous surgery History of Problems with Anesthesia: No Social History Social History Alcohol intake: current Alcohol intake frequency: holidays/special occasions only Patient Tobacco Use Status: Never used Tobacco Use of substances other than those prescribed or required for medical reasons: No Are you DNR?: No Advance Directives: No Advance Directives Information Provided: Yes Meds Allergies Allergy/AdvReac Type Severity Reaction Status Date / Time No Known Allergies Allergy Verified 12/16/23 09:01 Exam Height,Weight and Vital Signs: Height 5 ft 5 in Weight 136.985 kg Pertinent Lab Results Pertinent Lab Results: Laboratory Tests 12/10/23 10:56 Blood Type O Positive Antibody Screen NEGATIVE Laboratory Tests 12/10/23 11:05 WBC 6.3 Hgb 12.0 Hct 37.2 Plt Count 375 Sodium 141 Potassium 3.8 Chloride 108 Carbon Dioxide 31 H BUN 11 Creatinine 0.62 Narrative Narrative: EKG 10/2023 Vent. Rate : 081 BPM Atrial Rate : 081 BPM P-R Int : 154 ms QRS Dur : 098 ms QT Int : 400 ms P-R-T Axes : 051 039 021 degrees QTc Int : 464 ms Normal sinus rhythm Incomplete right bundle branch block Borderline ECG No previous ECGs available Assessment and Plan Assessment Anesthesia Assessment: Chart Reviewed Final Anesthetic Review Family History of Problems with Anesthesia: No History of Problems with Anesthesia: No Documented by User: Rachel Thomas MD 12/16/23 10:00 PMF Past Medical History Medical History Morbid obesity Surgical History Surgical History No history of previous surgery Social History Social History Alcohol intake: current Alcohol intake frequency: holidays/special occasions only Patient Tobacco Use Status: Never used Tobacco Use of substances other than those prescribed or required for medical reasons: No Are you DNR?: No Advance Directives: No Advance Directives Information Provided: Yes Meds Allergies Allergy/AdvReac Type Severity Reaction Status Date / Time No Known Allergies Allergy Verified 12/16/23 09:01 Exam Airway Mallampati Class: III TM Dist: >3cm Neck ROM: Full Loose/Missing/Broken Teeth: No Heart: RRR Lungs: CTA Assessment and Plan Assessment Anesthesia Assessment: Anesthesia Plan Discussed Final Anesthetic Review NPO: Yes ASA Class: III Final Preanesthetic Review: Meds/Allgs Chart Reviewed, Consent Obtained/Reviewed and Anes Risks/Benef Reviewed Patient Risk: Intermediate Procedure Risk: Intermediate Anesthetic Plan Anesthetic Plan: GA Disposition: Standard PACU
[2023-12-16] VITALS (11 sets, daily range): BP systolic 113–147; BP diastolic 56–82; PULSE 71–92; RESP 16–20; TEMP 36.2–36.5; O2SAT 95–100; BMI 47.9
[2023-12-16] MEDS: Lactated Ringers 1,000 ML 100 ML IVCONT (09:26)
--- NOTE | 2023-12-16 10:11 | MHC.SHP ---
Pre-Procedural Eval Section A - 24 Hr Update-Section A only Date of Service: 12/16/23 The patient is an INPATIENT: No The patient has been examined within 24 hours of the surgical procedure. The History & Physical has been completed within 30 days and I have reviewed it.: Yes Section B - Complete if H&P > 30 days Chief Complaint: Calculus of gallbladder without cholecystitis Relevant Family History (Specify if Yes): No Relevant Social History: None Present Medications: None Medical History: No relevant PMH History of Previous Operations: No relevant previous surgery Allergies: Allergies Allergy/AdvReac Type Severity Reaction Status Date / Time No Known Allergies Allergy Verified 12/16/23 09:01 Review of Systems Sugical H&P ROS: Negative: Constitution, Cardiovascular, Respiratory, Neurological, Psychiatric, Hem-Onc, Allergic/Immunologic, Gastrointestinal, Genitourinary, Musculoskeletal, Integumentary, Endocrine and Eyes/Ears/Nose/Throat Exam Surgical H&P Exam: Normal: HEENT, Normal: Heart, Normal: Lungs, Normal: Extremities, Normal: Abdomen, Normal: Skin and Normal: Neurological Plan Diagnosis/Plan: Unchanged I have reviewed the history and physical and performed a pertinent physical examination on my patient. No changes have occurred unless specified. Time Spent With Patient Time: Total time managing care of this patient today ____ minutes.
--- NOTE | 2023-12-16 10:20 | PM.OP ---
Brief Operative Note Date of Service: 12/16/23 Pre-op diagnosis: Cholelithiasis Post-op diagnosis: same Procedure: PROCEDURE DATE: 12/16/2023 PREOPERATIVE DIAGNOSIS: Symptomatic cholelithiasis, morbid obesity with a body mass index of 49.2 kg/sq. meters POSTOPERATIVE DIAGNOSIS: Same as above. PROCEDURE: Laparoscopic cholecystectomy and lysis of adhesions Surgeon: Eusebio Shane M.D., Ph.D. Supervisor Shipping Room:Jose Cisse PA-C Anesthesia: General endotracheal anesthesia Estimated blood loss: Minimal FINDINGS AND PROCEDURE: OPERATIVE INDICATIONS: The patient is a 23 year old female known to me who was initially seen in my office for evaluation for refractory morbid obesity. During the preoperative workup, the patient was found to have cholelithiasis which appears to be symptomatic. I recommended cholecystectomy before the sleeve gastrectomy due to the higher risks of acute cholecystitis after bariatric surgery as a result of the rapid weight loss. Risks and complications of the surgery were discussed with the patient in advance, particularly the postoperative bleeding, infection, DVT or PE, bile leak, major bile duct injury that may require additional surgical intervention, cardiac, pulmonary or renal complications among others. The patient understood the risks and was in agreement with the plan. PROCEDURE: After informed consent was obtained by the patient, the patient was transferred to the Operating Room and was placed in the supine position. The patient was given preoperative antibiotics and after successful induction of general anesthesia, pneumatic compression devices were placed. The patient was then prepped and draped in the usual sterile manner and abdominal access was established with Rina technique. The abdomen was insufflated with C02 to a pressure of 15 mmHg. A 5 mm Versi-step port was placed, slightly to the right and superior from the umbilicus. The 5 mm camera was introduced. We inspected the area where the port had been placed and there was no injury. The patient was then placed initially in a steep reverse Trendelenburg position and three additional ports were placed, specifically a 12 mm Versi-step port just to the right of the midline below the xiphoid process and two 5 mm Versi-step ports at the right upper quadrant and right flank. At that point the patient was placed in a steep reverse Trendelenburg position tilted to the left side. The gallbladder was retracted cephalad and laterally. There were adhesions between the omentum and the gallbladder wall that were taken down. The peritoneal attachments of the gallbladder at the triangle of Calot posteriorly and anteriorly were taken down. The cystic duct and artery were both seen. They were completely dissected free, skeletonized all the way to the infundibulum of the gallbladder . In a similar fashion we also cleaned the liver bed just behind the cystic artery to make sure there was no additional structures in this area. Once we confirmed that both structures were entering into the gallbladder and there were no other structures in the area, they were both clipped with two clips proximally, one distally and were cut in- between. We then using the electrocautery we slowly took down the gallbladder from the liver bed. Small areas of bleeding from the liver parenchyma were controlled with the cautery. After the gallbladder was completely detached from the liver bed, it was placed in an EndoCatch bag and was removed without difficulty from the xiphoid port. We then inspected the clips at the cystic duct and artery and were both in place. There was no active bleeding from the liver bed. We thoroughly removed all fluid until clear. At that point the patient was placed in supine position, we deflated the abdomen and we removed all ports under direct vision and no bleeding was noted from any of the port sites. The fascia of the 12 mm port was closed using a #1 Polysorb suture. 30cc Ropivacaine and 1% Lidocaine plain were used to infiltrate the fascial closure as well as all skin incisions. A total of 7ml Zynrelef was applied in the Rina wound. The skin was closed with 4-0 Monocryl subcuticular sutures antibiotic-coated. Steri-strips and OpSites were used to cover all incisions. The patient extubated and was transferred in stable condition to the Recovery Room for further care. I was present and performed all steps of the procedure. Mr. Cisse was the licensed loan officer assistant. There were no residents to assist with this case. Eusebio Shane M.D., Ph.D., F.A.C.S. Surgeon: Peewee Shane MD Anesthesia: GETA, local and other (TAP block and 7ml Zynrelef) Was an Supervisor Shipping Room used for this Procedure?: No Supervisor Shipping Room: Jose Cisse Estimated blood loss (mL): 10 IV fluids (mL): 1,500 Urine output (mL): 0 (No Han to record output) Pathology: other (Gallbladder) Condition: stable Disposition: PACU
[2023-12-16 10:22] LABS: UPreg QC Valid YES; Urine Pregnancy NEGATIVE (NEGATIVE)
[2023-12-16] MEDS: fentaNYL citrate/PF 100 MCG/2 ML VIAL 25 MCG IVPUSH (12:56)
--- NOTE | 2023-12-16 13:05 | PHA.MEDREC ---
Pharmacy Consult ? Medication Reconciliation Pharmacy has completed the medication reconciliation.
== END 2023-12-16 14:15 | disposition home or self-care (01) ==
PROVIDERS: Nurse Practitioner; PCP Internal Medicine; Visit Provider Surgery
PROC: 0FT44ZZ Resection of Gallbladder, Percutaneous Endoscopic Approach (ICD-10-PCS; CPT 47562; principal; 2023-12-16 10:00)
DX: K80.10 Calculus of gallbladder with chronic cholecystitis without obstruction (principal); K82.8 Other specified diseases of gallbladder; E66.01 Morbid (severe) obesity due to excess calories; Z68.43 Body mass index [BMI] 50.0-59.9, adult; Z79.899 Other long term (current) drug therapy
CPT/HCPCS: 47562; 81025; 86850; 86900; 86901; 88304; C9088; J0131; J0690; J1100; J2250; J2405; J2704; J2795; J3010

== ENCOUNTER → 2023-12-16 08:36 | Outpatient (BNV) | payer OTHER, SELFPAY | PROVIDERS: PCP Internal Medicine; Visit Provider Surgery | DX: K80.20 Calculus of gallbladder without cholecystitis without obstruction (principal); E66.01 Morbid (severe) obesity due to excess calories; Z68.42 Body mass index [BMI] 45.0-49.9, adult | CPT/HCPCS: 47562 ==

== ENCOUNTER 2023-12-23 10:00 | Outpatient (AMB) | payer OTHER, SELFPAY ==
--- NOTE | 2023-12-23 11:48 | MHC.WMTHER ---
Intake Intake Visit Reasons: VIDEO BH F/U Allergies No Known Allergies Allergy (Verified 12/16/23 09:01) [facility] Medical History Morbid obesity Surgical History No history of previous surgery Social History Alcohol intake: current Alcohol intake frequency: holidays/special occasions only Patient Tobacco Use Status: Never used Tobacco Behavioral Health Assessment Weight Management Therapy Therapy Notes Details Pt presents for a follow up via telehealth. PT was seen for intake on 11/17 and cleared, however today we are meeting to address craving and mild concerns with emotional eating. PT reports she has adjusted well to meal plan and craving have decreased ad assured by clinician the last time. She had a surgery last week and her recovery was good, providing her with confidence about a good recovery and response to bariatric surgery. PT stated she is following meal plan as advised and exercising well. Today patient was provided with education about cravings Vs hunger and coping strategies were provided to manage cravings/urges for sweets and for mindful eating. Assessment & Plan Assessment & Plan (1) Eating disorder, unspecified: Code(s): F50.9 - Eating disorder, unspecified Plan Cleared, no need for follow up. She will be seen post-op for support. Telehealth Telehealth Telehealth Platform: [facility] Location of provider rendering services: other Location of patient: address on file Patient Identification confirmed using: Name, : Yes Telehealth method: voice only Patient verbally consented to treatment: Yes Patient verbally consented to billing insurance company: Yes Patient informed of any privacy concerns related to visit: No Minutes spent on Phone/Video with Pt.: 45 Coding Level of Care Code Established Pt Tele Psytx 45 mins (17982) Patient Type Established Diagnoses Eating disorder, unspecified F50.9 Time Spent (min) 45
== END 2023-12-23 11:54 | disposition home or self-care (01) ==
LOC: HO.HBST 10:31
PROVIDERS: PCP Internal Medicine; Visit Provider Counselor Mental Health
DX: F50.9 Eating disorder, unspecified (principal)
CPT/HCPCS: 90834

== ENCOUNTER → 2023-12-23 10:00 | Outpatient (BNVA) | payer OTHER, SELFPAY | PROVIDERS: PCP Internal Medicine; Visit Provider Counselor Mental Health ==

== ENCOUNTER 2023-12-25 12:50 | Outpatient (AMB) | payer OTHER, SELFPAY ==
--- NOTE | 2023-12-25 12:58 | A.OFFVIS_ITS ---
VS Expanded 12/25/23 13:02 BP 119/57 L Blood Pressure Location Rt brachial Blood Pressure Position Sitting Pulse 90 Pulse Source Pulse Oximeter Temp 96.1 F L Temperature Source Temporal Artery Scan Pulse Oximetry 97 Intake Visit Reasons: (OV) PO Lap [place] 12/16/23 Allergies No Known Allergies Allergy (Verified 12/16/23 09:01) HPI Comments Details: Patient is a 23-year-old female who returns to the office today in follow-up. She is 9 days status post laparoscopic cholecystectomy performed on 12/16/2023. She states that overall she is doing very well. Denies any pain. She is continuing to follow the meal plan as directed by Dr. Shane including 2 shakes and 3 bars. She has not having any loose stools. [facility] Medical History (Updated 12/19/23 @ 15:39 by Peewee Shane MD) Morbid obesity Surgical History (Updated 12/25/23 @ 13:09 by ABNER Baldwin) Hx laparoscopic cholecystectomy Social History Alcohol intake: current Alcohol intake frequency: holidays/special occasions only Patient Tobacco Use Status: Never used Tobacco Physical Exam Vital Signs: Last Vital Signs Temp 96.1 F L 12/25/23 13:02 Pulse 90 12/25/23 13:02 BP 119/57 L 12/25/23 13:02 Pulse Ox 97 12/25/23 13:02 GI Inspection: Yes incision (Clean, dry, intact.) Assessment & Plan Assessment & Plan (1) Hx laparoscopic cholecystectomy: Comment: 12/16/23 Code(s): Z90.49 - Acquired absence of other specified parts of digestive tract Category: Surgical Plan: Patient is doing very well. She is 9 days post laparoscopic cholecystectomy performed on 12/16/2023. She will continue to communicate with Dr. Shane regarding her meal plan and exercise plan. She has been advised to avoid heavy lifting for 2 weeks and no abdominal exercises for 6 weeks postoperatively.
[2023-12-25 13:02] VITALS: BP 119/57; PULSE 90; TEMP 35.6; O2SAT 97
== END 2023-12-25 13:10 | disposition home or self-care (01) ==
PROVIDERS: PCP Internal Medicine; Visit Provider Physician Assistant Surgical
DX: Z90.49 Acquired absence of other specified parts of digestive tract (principal)
CPT/HCPCS: 99024

== ENCOUNTER → 2023-12-25 12:50 | Outpatient (BNVA) | payer OTHER, SELFPAY | PROVIDERS: PCP Internal Medicine; Visit Provider Physician Assistant Surgical | DX: Z48.815 Encounter for surgical aftercare following surgery on the digestive system (principal); Z90.49 Acquired absence of other specified parts of digestive tract | CPT/HCPCS: 99212 ==

== ENCOUNTER 2024-01-13 08:28 | Outpatient (REF) | payer OTHER, SELFPAY ==
--- NOTE | ~2024-01-13 | FL_ITS ---
EXAMINATION: XR FLUOROSCOPY UPPER GI WITH AIR CLINICAL INFORMATION: Preop evaluation prior to bariatric surgery COMPARISON: None TECHNIQUE: Fluoroscopic air contrast upper GI examination was performed utilizing standard techniques with thin and thick barium and effervescent granules. Numerous spot images were obtained. FINDINGS: Dual and single contrast images of the esophagus demonstrate normal caliber, contour, and mucosal pattern. No evidence of stricture, mass, or ulcerations identified. Esophageal peristalsis was normal. No evidence of hiatus hernia identified. Significant gastroesophageal reflux is seen up to the thoracic inlet. Surgical clips are present in the right upper quadrant. Dual contrast and single contrast images of the stomach demonstrated normal contour and mucosal pattern without evidence of mass, ulceration, or other abnormality. Contrast freely passed into the gastric antrum and duodenal bulb without delay. Single and air-contrast images of the duodenal bulb demonstrate no abnormality. The duodenal sweep has a normal appearance, course, and mucosal fold appearance. The imaged proximal jejunum has a normal fold pattern and caliber. FLUOROSCOPY TIME: 3 minutes 27 seconds Number of Spot Images: 9 Number of Cine: 13 DOSE AREA PRODUCT: 2818 uGy-m2 (microgray-meter squared) FL/FL upper GI w air IMPRESSION: 1. Significant gastroesophageal reflux 2. Status post cholecystectomy This procedure was performed by Aniceto Goel PA-C, and supervised by Dr. Machado
== END 2024-01-13 08:29 | disposition home or self-care (01) ==
LOC: HO.XRAY 08:28
PROVIDERS: PCP Internal Medicine; Visit Provider Surgery
DX: E66.01 Morbid (severe) obesity due to excess calories (principal)
CPT/HCPCS: 74246

== ENCOUNTER → 2024-01-13 08:31 | Outpatient (BNV) | payer OTHER, SELFPAY | PROVIDERS: PCP Internal Medicine; Visit Provider Physician Assistant Surgical | DX: E66.01 Morbid (severe) obesity due to excess calories (principal); Z01.818 Encounter for other preprocedural examination | CPT/HCPCS: 74246 ==

== ENCOUNTER 2024-01-19 13:03 | Outpatient (REF) | payer OTHER, SELFPAY ==
[2024-01-22 13:18] LABS: H Pylori Breath Test Negative (Negative)
== END 2024-01-19 13:04 | disposition home or self-care (01) ==
LOC: HO.LNP 13:03
PROVIDERS: PCP Internal Medicine; Visit Provider Surgery
DX: E66.01 Morbid (severe) obesity due to excess calories (principal)
CPT/HCPCS: 83013; 99211

== ENCOUNTER 2024-04-08 09:07 | Outpatient (AMB) | payer OTHER, SELFPAY ==
--- NOTE | 2024-04-08 11:39 | A.OFFVIS_ITS ---
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 Allergies No Known Allergies Allergy (Verified 04/08/24 11:39) Medication List - Last Reconciled 04/08/24 by Peewee Shane MD cholecalciferol (vitamin D3) 125 mcg PO DAILY iron,carbonyl-vitamin C 65 mg iron- 125 mg (Vitron-C) 1 tab PO DAILY mecobalamin (vitamin B12) 1,000 mcg sublingual DAILY omeprazole 40 mg PO DAILY ondansetron 4 mg PO Q12H pantoprazole 40 mg PO DAILY polyethylene glycol 3350 17 grams PO DAILY sucralfate 10 mL PO BID thiamine HCl (vitamin B1) 100 mg PO DAILY vitamin A palmitate 10,000 units PO DAILY HPI HPI TV Pre OP 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: Details: Start time: 11.30am, End time: 11.55am ?I spent 20 minutes speaking with the patient on the phone plus an additional 5 minutes reviewing and updating records for a total of 25 minutes HPI Comments Details: Overall weight loss: 42.6lbs, or 13.54% TBWL Is doing 2 Celebrate Rebuild protein shakes (1 scoop each in 8oz almond milk), 2 Celebrate protein bars and one meal Exercise: walking outside [facility] Medical History (Updated 12/19/23 @ 15:39 by Peewee Shane MD) Morbid obesity Surgical History (Updated 12/25/23 @ 13:09 by ABNER Baldwin) Hx laparoscopic cholecystectomy Social History Alcohol intake: current Alcohol intake frequency: holidays/special occasions only Patient Tobacco Use Status: Never used Tobacco Telehealth Telehealth Telehealth Platform: Telephone Location of provider rendering services: practice address Location of patient: address on file Patient Identification confirmed using: Name, : Yes Telehealth method: voice only Patient verbally consented to treatment: Yes Patient verbally consented to billing insurance company: Yes Patient informed of any privacy concerns related to visit: Yes Minutes spent on Phone/Video with Pt.: 25 Assessment & Plan Assessment & Plan (1) Morbid obesity: Code(s): E66.01 - Morbid (severe) obesity due to excess calories Category: Medical Plan: 1. Plan for lap sleeve gastrectomy including upper GI endoscopy. All tests has been completed and reviewed and the patient is cleared for the surgery. ?If diaphragmatic or ventral hernias are present at time of surgery, these will be repaired laparoscopically as well. Risks and complications were discussed in detail including possible conversion to an open procedure, anastomotic leak, bleeding requiring transfusion, small bowel obstruction, , DVT and pulmonary embolism, cardiac, or pulmonary complications, as retirement complications such as anastomotic ulcer, insufficient weight loss and vitamin deficiencies. I emphasized the importance of close follow-up, adherence to instructions and good communication. So far she has proven to be an excellent communicator and very compliant with all our directions accomplishing a great weight loss. I believe that she is an excellent candidate and she is ready. 2. Preop prescriptions were provided and explained the purpose of each one. Need to be purchased preop. Start Pantoprazole now as you get it from the pharmacy, 1 pill per day. Sucralfate and Zofran are for after surgery as needed. 3. Bowel prep: please do 7 packets ?of Miralax mixing each one with a an 8oz glass of water, crystal light, gatorade zero, or propel ?on 04/19/24 and the same amount on 04/20/24. The Miralax you begin with one packet at a time in 8oz water or crystal light, gatorade zero, or propel ?as early in the day as you can and you do them back to back until you finish them. Continue the protein shakes during ?the bowel prep. 4. Needs to purchase 1oz medicine cups . 5. Needs to purchase Children's liquid Tylenol for postop pain control. 6. Avoid aspirin, motrin, Advil, Aleve, Ibuprofen, Naproxyn. Tylenol is OK. 7. She needs to purchase the Celebrate 4:1 protein shakes from the hospital's gift shop. 8. Will do basic preop blood work-up any day between Thursday04/11/24 and Thursday04/15/24 fasting for 12 hours and is scheduled to see the Anesthesiologist prior to the day of surgery. 9. Importance of adherence to postop folllow-up and recommendations was underscored and she understands that. 10. Stop food and bars as of tomorrow 04/09/24 and continue with 5 Celebrate REBUILD protein shakes (TWO scoops EACH in 8oz almond milk) at 7am-9am, 10am- 12pm, 1pm-3pm, 4pm-6pm and at 7pm-9pm 11. No soups, broths or V8 12. The patient's?medical?history has been reviewed and they are considered low risk for post op DVT and therefore DVT prophylaxis is not considered necessary. Travel after surgery was reviewed. The patient has not disclosed any travel plans during the first 30 days after surgery and they have been advised that within the first 30 days after surgery any bus, plane, train or car travel over 2 hours in duration is contraindicated due to the possibility of developing blood clots from immobility. Any travel, needs to include periods of ambulation of 10 minutes in duration every 2 hours.? Patient was instructed to discuss any plans for travel during this period with their bariatric surgeon.? 13. Please take at the day of surgery the following medications: NONE 14. Stop any control pills and don't use them for one month after surgery 15. Absolutely no smoking or vaping, or marijuana until the surgery and for at least the first 4 weeks. Only nicotine patches are allowed. 16. Send me weight measurements on Thursday04/13/24 and then on 04/21/24, the day of surgery before you go to the hospital. 17. Avoid any steroids by mouth for any reason. Let me know if someone prescribes them to you 18. These instructions supersede anything else you read in the handbook, anything you watched in videos or classes or you were told by any other provider. If there is any conflict, you follow the above instructions and nothing else. Orders: Orders TSH reflex Free T4 Today E66.01 - Morbid (severe) obesity due to excess calories Prothrombin Time INR Today E66.01 - Morbid (severe) obesity due to excess calories C Reactive Protein Today E66.01 - Morbid (severe) obesity due to excess calories Partial Thromboplastin Time Today E66.01 - Morbid (severe) obesity due to excess calories Complete Blood Count Auto Diff Today E66.01 - Morbid (severe) obesity due to excess calories Comprehensive Met. Panel Today E66.01 - Morbid (severe) obesity due to excess calories Hemoglobin A1c Today E66.01 - Morbid (severe) obesity due to excess calories Lipid Panel Today E66.01 - Morbid (severe) obesity due to excess calories Type and Screen Today E66.01 - Morbid (severe) obesity due to excess calories Insulin Today E66.01 - Morbid (severe) obesity due to excess calories Medications: New pantoprazole 40 mg PO DAILY 90 tabs 0RF K21.9 - Gastro-esophageal reflux disease without esophagitis sucralfate 10 mL PO BID 600 mL 2RF K21.9 - Gastro-esophageal reflux disease without esophagitis polyethylene glycol 3350 Mix each measuring cup with 8oz of water, Crystal light, or Gatorade zero, or Propel and do 7 measuring cups on 04/19/24 and another 7 measuring cups on 04/20/24 17 grams PO DAILY 238 grams 0RF Z01.818 - Encounter for other preprocedural examination
[2024-04-08 11:50] VITALS: BMI 45.3
== END 2024-04-08 11:56 | disposition home or self-care (01) ==
PROVIDERS: PCP Internal Medicine; Visit Provider Surgery
DX: E66.01 Morbid (severe) obesity due to excess calories (principal)
CPT/HCPCS: 99213

== ENCOUNTER → 2024-04-08 09:07 | Outpatient (BNVA) | payer OTHER, SELFPAY | PROVIDERS: PCP Internal Medicine; Visit Provider Surgery ==

== ENCOUNTER 2024-04-11 08:29 | Outpatient (REF) | payer OTHER, SELFPAY ==
[2024-04-11 08:54] LABS: MANUAL DIFF FLAG NO
[2024-04-11 09:04] LABS: Basophils Percent Auto 0.4 % (0-2); Eosinophils Absolute Auto 0.3 X10*3/uL (0.0-0.4); Eosinophils Percent Auto 3.7 % (0-4); Hemoglobin 11.6 g/dl (12.0-16.0); Imm Gran Abs Auto 0.01 X10*3/uL (0.00-0.03); Imm Gran Pct Auto 0.1 % (0.0-0.4); Lymphocytes Absolute Auto 3.4 X10*3/uL (1.2-4.9); Lymphocytes Percent Auto 50.7 % (20-40); Mean Corpuscular HGB Conc 32.2 g/dl (31.0-35.0); Mean Corpuscular Hemoglobin 27.2 pg (27.0-33.0); Mean Corpuscular Volume 84.3 fL (80.0-98.0); Mean Platelet Volume 9.9 fL (9.4-12.3); Monocytes Absolute Auto 0.6 X10*3/uL (0.1-1.2); Monocytes Percent Auto 8.7 % (2-11); Neutrophils Absolute Auto 2.5 x10*3/uL (2.0-8.3); Neutrophils Percent Auto 36.4 % (45-73); Platelet Count 368 X10*3/uL (160-400); Red Blood Count 4.27 X10*6/uL (4.20-5.50); Red Cell Distribution Width 13.8 % (11.0-16.0); White Blood Count 6.8 X10*3/uL (4.8-10.8)
[2024-04-11 09:10] LABS: Prothrombin Time 12.3 SEC (11.1-13.3)
[2024-04-11 09:11] LABS: Estimated Average Glucose 108 mg/dL; Hemoglobin A1c % 5.4 % (<6.0)
[2024-04-11 09:13] LABS: Partial Thromboplastin Time 33.7 SEC (26.0-36.8)
[2024-04-11 11:10] LABS: Alanine Aminotransferase 18 U/L (0-31); Albumin Level 4.1 g/dL (3.5-5.0); Alkaline Phosphatase 92 U/L (39-117); Anion Gap 12 (12-20); Aspartate Amino Transferase 20 U/L (5-31); Bilirubin Total 0.4 mg/dL (0.0-1.0); Blood Urea Nitrogen 7 mg/dL (9-16); Calcium 9.5 mg/dL (8.4-10.2); Carbon Dioxide 27 mmol/L (22-29); Chloride 104 mmol/L (96-108); Cholesterol 162 mg/dL (<200); Estimated Glomerular Filt Rate > 60; Glucose Random 84 mg/dL (60-115); HDL Cholesterol 44 mg/dL (>40); LDL Cholesterol Calculated 103 mg/dL (<100); Potassium 3.7 mmol/L (3.3-5.1); Sodium 139 mmol/L (135-145); Total Protein 7.4 g/dL (6.5-8.0); Triglycerides 76 mg/dL (<150)
[2024-04-11 11:22] LABS: Insulin 12 uU/mL (2-29); TSH reflex Free T4 2.38 uIU/mL (0.32-4.0)
== END 2024-04-11 08:30 | disposition home or self-care (01) ==
LOC: HO.LAB 08:29
PROVIDERS: PCP Internal Medicine; Visit Provider Surgery
DX: E66.01 Morbid (severe) obesity due to excess calories (principal)
CPT/HCPCS: 36415; 80053; 80061; 83036; 83525; 84443; 85025; 85610; 85730; 86140; 86850; 86900; 86901

== ENCOUNTER 2024-04-21 09:17 | Inpatient (IN) | payer OTHER, SELFPAY ==
[2024-04-12 09:05] VITALS: BMI 45.3
[2024-04-21] VITALS (10 sets, daily range): BP systolic 108–122; BP diastolic 58–68; PULSE 67–94; RESP 14–18; TEMP 35.8–36.6; O2SAT 93–100; BMI 49.8
--- OUTSIDE RECORDS SUMMARY | 2024-04-21 09:19 | XMS_ITS | Continuity of Care Document ---
Author Organization [facility] Address [address] [place] [address]- Care Team Providers Care Premium Service Representative Name Role Phone Roopa Duff MD Primary Care Physician Encounter [facility] [place] Date(s): 08/06/22 - 09/11/[address] [id number] Attending Physician: Bartolo Ramsay DO Admitting Physician: Bartolo Ramsay DO Referring Physician: Terrence SAUCEDA, PAPER BAG MAKING MACHINIST, Michelle Haque Allergies, Adverse Reactions, Alerts No Known Allergies Immunizations Given and Recorded Vaccine Date Status Refusal Reason tetanus/diphtheria/pertussis, acel(Tdap) 05/29/22 Given influenza virus vaccine, inactivated 05/29/22 Give n SARS-CoV-2 mRNA ([id number]) vax 11/06/21 Recorded SARS-CoV-2 (COVID-19) mRNA-1273 vaccine 11/22/20 R ecorded SARS-CoV-2 (COVID-19) mRNA-1273 vaccine 10/26/20 R ecorded Medications ferrous sulfate 325 mg oral tablet 1 tablet = 325 mg, By Mouth, Daily, # 90 tablet, 6 Refills, Maintenance, 07/11/22 12:28:00 EST, [facility] #[id number], Partial fill upon patient request if the prescription is for a schedule II opioid drug., 165, cm, 07/11/22 12:23:00 ES... Start Date: 07/11/22 Status: Ordered Multivitamins with Folic Acid 1 mg oral tablet 1 tablet, By Mouth, Daily, # 90 tablet, 2 Refills, Maintenance, 02/14/22 8:27:00 EDT, [facility] #[id number], Partial fill upon patient request if the prescription is for a schedule II opioid drug., 1 tablet By Mouth Daily, 165, cm, 01/29... Start Date: 02/14/22 Status: Ordered Problem List Condition Confirmation Course Effective Dates Status Health St [facility] Informant Uses Italian as primary spoken language Confirmed Active Severe obesity Confirmed Active Social History Social History Type Response Tobacco Other: hookah once a month. Sex Female Patient Care team information Care Team Personnel Name: Roopa Duff MD Position: [facility] Resident Member Role: PCP Address: Address: [address] [place] [address]- Care Team Related Persons Name: RADHA PASCAL Address: [id number] Address: home [address] Name: MANSOOR GIL Address: home [address] [place] [address]
--- OUTSIDE RECORDS SUMMARY | 2024-04-21 09:19 | XMS_ITS | Continuity of Care Document ---
Author Organization [facility] Address [address] [place] [address]- Care Team Providers Care Supervisor [employer] Name Role Phone Roopa Duff MD Primary Care Physician [phone] Encounter [facility] [place] Date(s): 01/29/22 - 05/07/[address] [address]- Attending Physician: Not on Staff, Attending MD Allergies, Adverse Reactions, Alerts No Known Allergies Immunizations Given and Recorded Vaccine Date Status Refusal Reason SARS-CoV-2 mRNA ([id number]-[id number]) vax 11/06/21 Recorded SARS-CoV-2 (COVID-19) mRNA-1273 vaccine 11/22/20 R ecorded SARS-CoV-2 (COVID-19) mRNA-1273 vaccine 10/26/20 R ecorded Medications aspirin 81 mg oral tablet, chewable 162 mg, 2, tablet, By Mouth, Daily at bedtime, start at 12weeks until 2 weeks , # 60 tablet, Refills 7, Tot. Refills 7, Maintenance, 01/29/22 8:40:00 EDT, Route to Pharmacy Electronically, [facility] #[id number], Partial fill upon patie... Start Date: 01/29/22 Status: Ordered Multivitamins with Folic Acid 1 mg oral tablet 1 tablet, By Mouth, Daily, # 90 tablet, 2 Refills, Maintenance, 02/14/22 8:27:00 EDT, Tablet, [facility] #[id number], Partial fill upon patient request if the prescription is for a schedule II opioid drug., 1 tablet By Mouth Daily, 165, cm, 01/29... Start Date: 02/14/22 Status: Ordered Tylenol Extra Strength 500 mg oral tablet 2 tablet = 1,000 mg, By Mouth, Every 6 hours, PRN as needed for fever, # 50 tablet, 0 Refills, Maintenance, 05/01/22 8:47:00 EDT, Tablet, [facility] #[id number], Partial fill upon patient request if the prescription is for a schedule II opioid . Start Date: 05/01/22 Status: Ordered Vitamin B6 50 mg oral tablet 50 mg, 1, tablet, By Mouth, 2 times a day, PRN, # 60 tablet, Refills 1, Tot. Refills 1, Maintenance, Nausea & Vomiting, 05/01/22 8:49:00 EDT, Route to Pharmacy Electronically, [facility] #[id number], Partial fill upon patient request if the presc... Start Date: 05/01/22 Status: Ordered Problem List Condition Effective Dates Status Health Status Inform ant History of UTI(Confirmed) Active Uses Tristanian as primary spok en language(Confirmed) Active Obesity during (Confirmed) Active (Confirmed) Active Severe obesity(Confirmed) Active Social History Social History Type Response Tobacco Other: hookah once a month. Sex Care Team Personnel Name: Roopa Duff MD Address: [address] [place] [address]
--- OUTSIDE RECORDS SUMMARY | 2024-04-21 09:19 | XMS_ITS | Continuity of Care Document ---
Author Organization [facility] Address [address] [place] [address]- Care Team Providers Care Land Management Forester Name Role Phone Roopa Duff MD Primary Care Physician Encounter [facility] [place] Date(s): 05/16/22 - 06/15/[address] [id number] Allergies, Adverse Reactions, Alerts No Known Allergies Immunizations Given and Recorded Vaccine Date Status Refusal Reason tetanus/diphtheria/pertussis, acel(Tdap) 05/29/22 Given influenza virus vaccine, inactivated 05/29/22 Give n SARS-CoV-2 mRNA ([id number]-wdze-ynauc) vax 11/06/21 Recorded SARS-CoV-2 (COVID-19) mRNA-1273 vaccine 11/22/20 R ecorded SARS-CoV-2 (COVID-19) mRNA-1273 vaccine 10/26/20 R ecorded Medications aspirin 81 mg oral tablet, chewable 162 mg, 2, tablet, By Mouth, Daily at bedtime, start at 12weeks until 2 weeks , # 60 tablet, Refills 7, Tot. Refills 7, Maintenance, 01/29/22 8:40:00 EDT, Route to Pharmacy Electronically, [facility] #[id number], Partial fill upon patie... Start Date: 01/29/22 Status: Ordered ferrous sulfate 325 mg oral tablet 1 tablet = 325 mg, By Mouth, Daily, # 90 tablet, 0 Refills, Maintenance, 05/23/22 17:30:00 EDT, Tablet, [facility] #[id number], Partial fill upon patient request if the prescription is for a schedule II opioid drug., 165, cm, 05/13/22 13:50:00 ED... Start Date: 05/23/22 Status: Ordered Multivitamins with Folic Acid 1 mg oral tablet 1 tablet, By Mouth, Daily, # 90 tablet, 2 Refills, Maintenance, 02/14/22 8:27:00 EDT, Tablet, [facility] #[id number], Partial fill upon patient request if the prescription is for a schedule II opioid drug., 1 tablet By Mouth Daily, 165, cm, 01/29... Start Date: 02/14/22 Status: Ordered Tylenol Extra Strength 500 mg oral tablet 2 tablet = 1,000 mg, By Mouth, Every 6 hours, PRN as needed for fever, # 50 tablet, 0 Refills, Maintenance, 05/01/22 8:47:00 EDT, Tablet, [facility] #[id number], Partial fill upon patient request if the prescription is for a schedule II opioid drDimitry Start Date: 05/01/22 Status: Ordered Vitamin B6 50 mg oral tablet 50 mg, 1, tablet, By Mouth, 2 times a day, PRN, # 60 tablet, Refills 1, Tot. Refills 1, Maintenance, Nausea & Vomiting, 05/01/22 8:49:00 EDT, Route to Pharmacy Electronically, [facility] #[id number], Partial fill upon patient request if the presc... Start Date: 05/01/22 Status: Ordered Problem List Condition Confirmation Course Effective Dates Status Health St atus Informant History of UTI Confirmed Active Uses Cymraes as primary spoken language Confirmed Active Obesity during Confirmed Active Confirmed Active Severe obesity Confirmed Active Social History Social History Type Response Tobacco Other: hookah once a month. Sex Patient Care team information Personnel Name: Roopa Duff MD Address: Address: [address] [place] [address]
--- OUTSIDE RECORDS SUMMARY | 2024-04-21 09:20 | XMS_ITS | Continuity of Care Document ---
Author Organization [facility] Address [address] [place] [address]- Care Team Providers Care Racecourse Barrier Attendant Name Role Phone Roopa Duff MD Primary Care Physician Encounter [facility] [place] Date(s): 09/18/22 - 10/18/22 [facility] [address]- [place] Allergies, Adverse Reactions, Alerts No Known Allergies Immunizations Given and Recorded Vaccine Date Status Refusal Reason tetanus/diphtheria/pertussis, acel(Tdap) 05/29/22 Given influenza virus vaccine, inactivated 05/29/22 Give n SARS-CoV-2 mRNA (knhlqxa-lgra-gfkmw) vax 11/06/21 Recorded SARS-CoV-2 (COVID-19) mRNA-1273 vaccine 11/22/20 R ecorded SARS-CoV-2 (COVID-19) mRNA-1273 vaccine 10/26/20 R ecorded Medications ferrous sulfate 325 mg oral tablet 1 tablet = 325 mg, By Mouth, Daily, # 90 tablet, 6 Refills, Maintenance, 07/11/22 12:28:00 EST, Tablet, [facility] #[id number], Partial fill upon patient request if the prescription is for a schedule II opioid drug., 165, cm, 07/11/22 12:23:00 ES... Start Date: 07/11/22 Status: Ordered Multivitamins with Folic Acid 1 mg oral tablet 1 tablet, By Mouth, Daily, # 90 tablet, 2 Refills, Maintenance, 02/14/22 8:27:00 EDT, Tablet, [facility] #[id number], Partial fill upon patient request if the prescription is for a schedule II opioid drug., 1 tablet By Mouth Daily, 165, cm, 01/29... Start Date: 02/14/22 Status: Ordered Problem List Condition Confirmation Course Effective Dates Status Health St atus Informant Uses Greenlandic as primary spoken language Confirmed Active Severe obesity Confirmed Active Social History Social History Type Response Tobacco Other: hookah once a month. Sex Female Patient Care team information Care Team Personnel Name: Roopa Duff MD Position: [facility] Resident Member Role: PCP Address: Address: [address] [place] [address]- Care Team Related Persons Name: RADHA PASCAL Address: [address] Address: [address] [place] [address] [place] Name: MANSOOR GIL Address: home [address] [place] [address]
--- OUTSIDE RECORDS SUMMARY | 2024-04-21 09:20 | XMS_ITS | Continuity of Care Document ---
Author Organization [facility] Address [address] [place] [address]- Care Team Providers Care Certified Legal Investigator Name Role Phone Roopa Duff MD Primary Care Physician [place] [facility] [place] - 10/25/[address] [address]- Attending Physician: AdmMili apodaca Admitting Physician: Admtr, Mili Referring Physician: Admtr, Ar8 Allergies, Adverse Reactions, Alerts No Known Allergies Immunizations Given and Recorded Vaccine Date Status Refusal Reason tetanus/diphtheria/pertussis, acel(Tdap) 05/29/22 Given influenza virus vaccine, inactivated 05/29/22 Give n SARS-CoV-2 mRNA (xjfljfe-prho-wzigd) vax 11/06/21 Recorded SARS-CoV-2 (COVID-19) mRNA-1273 vaccine 11/22/20 R ecorded SARS-CoV-2 (COVID-19) mRNA-1273 vaccine 10/26/20 R ecorded Medications ferrous sulfate 325 mg oral tablet 1 tablet = 325 mg, By Mouth, Daily, # 90 tablet, 6 Refills, Maintenance, 07/11/22 12:28:00 EST, Tablet, [facility] #[id number], Partial fill upon patient request if the prescription is for a schedule II opioid drug., 165, cm, 07/11/22 12:23:00 ES... Start Date: 07/11/22 Status: Ordered Multivitamins with Folic Acid 1 mg oral tablet 1 tablet, By Mouth, Daily, # 90 tablet, 2 Refills, Maintenance, 02/14/22 8:27:00 EDT, Tablet, [facility] #[id number], Partial fill upon patient request if the prescription is for a schedule II opioid drug., 1 tablet By Mouth Daily, 165, cm, 01/29... Start Date: 02/14/22 Status: Ordered Problem List Condition Confirmation Course Effective Dates Status Health St atus Informant Uses Micronesian as primary spoken language Confirmed Active Severe obesity Confirmed Active Social History Social History Type Response Tobacco Other: hookah once a month. Sex Female Patient Care team information Care Team Personnel Name: Roopa Duff MD Position: [facility] Resident Member Role: PCP Address: Address: [address] [place] [address]- Care Team Related Persons Name: RADHA PASCAL Address: [address] Address: home [address] [place] [address] Name: MANSOOR GIL Address: home [address] [place] [address]
--- OUTSIDE RECORDS SUMMARY | 2024-04-21 09:20 | XMS_ITS | Continuity of Care Document ---
Author Organization [facility] Address Unknown Care Team Providers Care Dispensary Technician Name Role Phone Roopa Duff MD Primary Care Physician [phone] [id number] Allergies, Adverse Reactions, Alerts No Known Allergies Immunizations Given and Recorded Vaccine Date Status Refusal Reason SARS-CoV-2 mRNA (rscmnyv-igic-crfbz) vax 11/06/21 Recorded SARS-CoV-2 (COVID-19) mRNA-1273 vaccine 11/22/20 R ecorded SARS-CoV-2 (COVID-19) mRNA-1273 vaccine 10/26/20 R ecorded Medications aspirin 81 mg oral tablet, chewable 162 mg, 2, tablet, By Mouth, Daily at bedtime, start at 12weeks until 2 weeks , # 60 tablet, Refills 7, Tot. Refills 7, Maintenance, 01/29/22 8:40:00 EDT, Route to Pharmacy Electronically, [facility] #[id number], Partial fill upon patie... Start Date: 01/29/22 Status: Ordered Multivitamins with Vitamin B Complex, Vitamin C, Minerals and L- Methylfolate oral capsule 1 capsule, By Mouth, Daily, # 90 capsule, 0 Refills, Maintenance, 12/26/21 11:29:00 EDT, Capsule, [facility] #[id number], Partial fill upon patient request if the prescription is for a schedule II opioid drug., 1 capsule By Mouth Daily, 165, cm,... Start Date: 12/26/21 Status: Ordered Tylenol Extra Strength 500 mg oral tablet 2 tablet = 1,000 mg, By Mouth, Every 6 hours, PRN as needed for fever, # 50 tablet, 0 Refills, Maintenance, 12/30/21 23:17:00 EDT, Tablet, [facility] #[id number], Partial fill upon patient request if the prescription is for a schedule II opioid d... Start Date: 12/30/21 Status: Ordered Problem List Condition Effective Dates Status Health Status Inform ant History of UTI(Confirmed) Active Uses Latvian as primary spok en language(Confirmed) Active Obesity during (Confirmed) Active (Confirmed) Active Severe obesity(Confirmed) Active Social History Social History Type Response Tobacco Other: hookah once a month. Sex
--- OUTSIDE RECORDS SUMMARY | 2024-04-21 09:20 | XMS_ITS | Continuity of Care Document ---
Author Organization [facility] Address [address] [place] [address]- Care Team Providers Care Administrative Support Coordinator Name Role Phone Omega LEOS, Roopa Primary Care Physician [place] [facility] [place](s): 12/30/21 - 01/29/[address] [address]- Allergies, Adverse Reactions, Alerts No Known Allergies Immunizations Given and Recorded Vaccine Date Status Refusal Reason SARS-CoV-2 mRNA (iuoulkn-nimz-qosts) vax 11/06/21 Recorded SARS-CoV-2 (COVID-19) mRNA-1273 vaccine 11/22/20 R ecorded SARS-CoV-2 (COVID-19) mRNA-1273 vaccine 10/26/20 R ecorded Medications aspirin 81 mg oral tablet, chewable 162 mg, 2, tablet, By Mouth, Daily at bedtime, start at 12weeks until 2 weeks , # 60 tablet, Refills 7, Tot. Refills 7, Maintenance, 01/29/22 8:40:00 EDT, Route to Pharmacy Electronically, [facility] #[id number], Partial fill upon patie... Start Date: 01/29/22 Status: Ordered Multivitamins with Vitamin B Complex, Vitamin C, Minerals and L- Methylfolate oral capsule 1 capsule, By Mouth, Daily, # 90 capsule, 0 Refills, Maintenance, 12/26/21 11:29:00 EDT, Capsule, [facility] #[id number], Partial fill upon patient request if the prescription is for a schedule II opioid drug., 1 capsule By Mouth Daily, 165, cm,... Start Date: 12/26/21 Status: Ordered Tylenol Extra Strength 500 mg oral tablet 2 tablet = 1,000 mg, By Mouth, Every 6 hours, PRN as needed for fever, # 50 tablet, 0 Refills, Maintenance, 12/30/21 23:17:00 EDT, Tablet, [id number], Partial fill upon patient request if the prescription is for a schedule II opioid d... Start Date: 12/30/21 Status: Ordered Problem List Condition Effective Dates Status Health Status Inform ant History of UTI(Confirmed) Active Uses English as primary spok en language(Confirmed) Active Obesity during (Confirmed) Active (Confirmed) Active Severe obesity(Confirmed) Active Social History Social History Type Response Tobacco Other: hookah once a month. Sex
--- OUTSIDE RECORDS SUMMARY | 2024-04-21 09:20 | XMS_ITS | Continuity of Care Document ---
Author Organization [facility] Address [address] [place] [address]- Care Team Providers Care Resident Engineer Name Role Phone Roopa Duff MD Primary Care Physician [phone] Encounter [facility] [place] Date(s): 04/25/22 - 05/25/[address] [address] [place] Allergies, Adverse Reactions, Alerts No Known Allergies Immunizations Given and Recorded Vaccine Date Status Refusal Reason SARS-CoV-2 mRNA (noggzum-rqpc-xxpbb) vax 11/06/21 Recorded SARS-CoV-2 (COVID-19) mRNA-1273 vaccine 11/22/20 R ecorded SARS-CoV-2 (COVID-19) mRNA-1273 vaccine 10/26/20 R ecorded Medications aspirin 81 mg oral tablet, chewable 162 mg, 2, tablet, By Mouth, Daily at bedtime, start at 12weeks until 2 weeks , # 60 tablet, Refills 7, Tot. Refills 7, Maintenance, 01/29/22 8:40:00 EDT, Route to Pharmacy Electronically, [facility] #[id number], Partial fill upon patie... Start Date: 01/29/22 Status: Ordered ferrous sulfate 325 mg oral tablet 1 tablet = 325 mg, By Mouth, Daily, # 90 tablet, 0 Refills, Maintenance, 05/23/22 17:30:00 EDT, Tablet, [facility] #[id number], Partial fill upon patient request if the prescription is for a schedule II opioid drug., 165, cm, 05/13/22 13:50:00 ED... Start Date: 05/23/22 Status: Ordered Multivitamins with Folic Acid 1 mg oral tablet 1 tablet, By Mouth, Daily, # 90 tablet, 2 Refills, Maintenance, 02/14/22 8:27:00 EDT, Tablet, [facility] #[id number], Partial fill upon patient request if the prescription is for a schedule II opioid drug., 1 tablet By Mouth Daily, 165, cm, 01/29... Start Date: 02/14/22 Status: Ordered Tylenol Extra Strength 500 mg oral tablet 2 tablet = 1,000 mg, By Mouth, Every 6 hours, PRN as needed for fever, # 50 tablet, 0 Refills, Maintenance, 05/01/22 8:47:00 EDT, Tablet, [facility] #[id number], Partial fill upon patient request if the prescription is for a schedule II opioid drLanny. Start Date: 05/01/22 Status: Ordered Vitamin B6 50 mg oral tablet 50 mg, 1, tablet, By Mouth, 2 times a day, PRN, # 60 tablet, Refills 1, Tot. Refills 1, Maintenance, Nausea & Vomiting, 05/01/22 8:49:00 EDT, Route to Pharmacy Electronically, [facility] #[id number], Partial fill upon patient request if the presc... Start Date: 05/01/22 Status: Ordered Problem List Condition Confirmation Course Effective Dates Status Health St atus Informant History of UTI Confirmed Active Uses Cambodian as primary spoken language Confirmed Active Obesity during Confirmed Active Confirmed Active Severe obesity Confirmed Active Social History Social History Type Response Tobacco Other: hookah once a month. Sex Patient Care team information Personnel Name: Roopa Duff MD Address: Address: [address] [place] [address]
--- OUTSIDE RECORDS SUMMARY | 2024-04-21 09:20 | XMS_ITS | Continuity of Care Document ---
Author Organization [facility] Address [address] [place] [address]- Care Team Providers Care Chair Mechanic Name Role Phone Roopa Duff MD Primary Care Physician [phone] Encounter [facility] [place] Date(s): 09/10/22 - 09/10/[address] [address]- Discharge Disposition: A-D/C Walkout Attending Physician: Not on Staff, Attending MD Admitting Physician: Not on Staff, Admitting MD Referring Physician: Not on Staff, Referring MD Allergies, Adverse Reactions, Alerts No Known Allergies Immunizations Given and Recorded Vaccine Date Status Refusal Reason tetanus/diphtheria/pertussis, acel(Tdap) 05/29/22 Given influenza virus vaccine, inactivated 05/29/22 Give n SARS-CoV-2 mRNA (ohwsbxg-avmw-volpc) vax 11/06/21 Recorded SARS-CoV-2 (COVID-19) mRNA-1273 vaccine 11/22/20 R ecorded SARS-CoV-2 (COVID-19) mRNA-1273 vaccine 10/26/20 R ecorded Medications ferrous sulfate 325 mg oral tablet 1 tablet = 325 mg, By Mouth, Daily, # 90 tablet, 6 Refills, Maintenance, 07/11/22 12:28:00 EST, Tablet, [facility] #[id number], Partial fill upon patient request if the prescription is for a schedule II opioid drug., 165, cm, 07/11/22 12:23:00 ES... Start Date: 07/11/22 Status: Ordered Multivitamins with Folic Acid 1 mg oral tablet 1 tablet, By Mouth, Daily, # 90 tablet, 2 Refills, Maintenance, 02/14/22 8:27:00 EDT, Tablet, [facility] #[id number], Partial fill upon patient request if the prescription is for a schedule II opioid drug., 1 tablet By Mouth Daily, 165, cm, 01/29... Start Date: 02/14/22 Status: Ordered Problem List Condition Confirmation Course Effective Dates Status Health St atus Informant Uses Malawian as primary spoken language Confirmed Active Severe obesity Confirmed Active Results Radiology Reports * Exam Date Time Procedure Performing Provider Status 09/10/22 8:07 AM US RUQ Zohreh Fox; Auth (Ve rified) Notes: (US RUQ) Reason For Exam: Abdominal Pain;Other: RESULT: US RUQ US RUQ Hx of Present Illness: pt reports vag delivery 08 13, no complications- today presenting for epigastric pain that she woke w this AM that radiates into back. Denies any N V D however vomited on arrival. Reports normal BM's. Denies any urinary changes; Reason: Other:; Abdominal Pain; Clinical Question(s): Cholecystitis COMPARISON: None. FINDINGS: Liver: Normal in size and echotexture. No focal cholelithiasis without sonographic evidence of acute cholecystitis. Lesion. Smooth hepatic contour. Main portal vein patent with normal hepatopetal direction of flow. Gallbladder: Numerous multiple, layering shadowing gallstones. Gallbladder is slightly distended. No gallbladder wall thickening or pericholecystic fluid. Biliary Tree: No intrahepatic or extrahepatic bile duct dilation is identified. Common duct measures: 0.3 cm. Pancreas: Obscured by overlying bowel gas. Right kidney: 11.9 cm in length. Normal parenchymal echotexture and thickness. No hydronephrosis, stone or mass. IMPRESSION: Cholelithiasis without evidence of acute cholecystitis. WSN: [id number] Ordering Physician: David Gray Dictated By: Ruy Wolf MD Dictated Date/Time: 09/10/22 8:39 am Reviewed By: Ruy Wolf MD Signed By: Ruy Wolf MD Signed Date/Time: 09/10/22 8:39 am Transcribed By: FANY Transcribed Date/Time: 09/10/22 8:35 am Vital Signs Most recent to oldest [Reference Range]: 1 2 3 Oxygen Saturation [94-100 %] 100 % (09/10/22 10:45 AM) 100 % (09/10/22 8:16 AM) 98 % (09/10/22 5:56 AM) Pulse Rate [55-90 bpm] 78 bpm (09/10/22 10:45 AM) 71 bpm (09/10/22 8:16 AM) 101 bpm *H* (09/10/22 5:56 AM) Blood Pressure [90-138/55-84 mm Hg] 117/66mm Hg (09/10/22 10:45 AM) 130/73mm Hg (09/10/22 8:16 AM) 116/46mm Hg (09/10/22 5:56 AM) Respiratory Rate [16-30 br/min] 16 br/min (09/10/22 10:45 AM) 18 br/min (09/10/22 8:16 AM) 16 br/min (09/10/22 5:56 AM) Temperature [96.8-100.4 DegF] 98.1 DegF (09/10/22 10:45 AM) 98.4 DegF (09/10/22 8:16 AM) 98.1 DegF (09/10/22 5:56 AM) Mode of Delivery (Oxygen) Room air (09/10/22 10:45 AM) Room air (09/10/22 8:16 AM) Blood pressure sites Arm, left (09/10/22 10:45 AM) Arm, right (09/10/22 8:16 AM) Temperature Route Oral (09/10/22 10:45 AM) Oral (09/10/22 8:16 AM) Social History Social History Type Response Tobacco Other: hookah once a month. Sex Female Note * BHSPowerscribe , CIS S: TRANSCNIEVES Wolf MD, Ruy Moy: VERIFY Event Display: Result: Authored Date: [id number] US RUQ Hx of Present Illness: pt reports vag delivery 08 13, no complications- today presenting for epigastric pain that she woke w this AM that radiates into back. Denies any N V D however vomited on arrival. Reports normal BM's. Denies any urinary changes; Reason: Other:; Abdominal Pain; Clinical Question(s): Cholecystitis COMPARISON: None. FINDINGS: Liver: Normal in size and echotexture. No focal cholelithiasis without sonographic evidence of acute cholecystitis. Lesion. Smooth hepatic contour. Main portal vein patent with normal hepatopetal direction of flow. Gallbladder: Numerous multiple, layering shadowing gallstones. Gallbladder is slightly distended. No gallbladder wall thickening or pericholecystic fluid. Biliary Tree: No intrahepatic or extrahepatic bile duct dilation is identified. Common duct measures: 0.3 cm. Pancreas: Obscured by overlying bowel gas. Right kidney: 11.9 cm in length. Normal parenchymal echotexture and thickness. No hydronephrosis, stone or mass. IMPRESSION: Cholelithiasis without evidence of acute cholecystitis. WSN: [id number] Ordering Physician: David Gray Dictated By: Ruy Wolf MD Dictated Date/Time: 09/10/22 8:39 am Reviewed By: Ruy Wolf MD Signed By: Ruy Wolf MD Signed Date/Time: 09/10/22 8:39 am Transcribed By: FANY Transcribed Date/Time: 09/10/22 8:35 am Patient Care team information Care Team Personnel Name: Roopa Duff MD Position: [facility] Resident Member Role: PCP Address: Address: [address] [place] [address]- [place] Care Team Related Persons Name: RDAHA PASCAL Address: [address] Address: home [address] [place] [address] [place] Name: MANSOOR GIL Address: home [address] [place] [address]
--- OUTSIDE RECORDS SUMMARY | 2024-04-21 09:20 | XMS_ITS | Continuity of Care Document ---
Author Organization [facility] Address [address] [place] [address]- Care Team Providers Care Radio Intelligence Operator Name Role Phone Not on Staff, PCP Primary Care Physician Unavail able Encounter [facility] [place] Date(s): 12/17/21 - 12/18/[address] [id number] [place] Discharge Disposition: A-D/C Home Attending Physician: Fouzia Salazar DO Admitting Physician: Fouzia Salazar DO Referring Physician: Fouzia Salazar DO Allergies, Adverse Reactions, Alerts No Known Allergies Vital Signs Most recent to oldest [Reference Range]: 1 Weight 123.8 kg (12/17/21 11:56 PM) Oxygen Saturation [94-100 %] 100 % (12/18/21 12:30 AM) Blood Pressure [90-138/55-84 mm Hg] 112/ 61mm Hg (12/18/21 12:30 AM) Respiratory Rate [16-30 br/min] 18 br/mi n (12/18/21 12:30 AM) Temperature [96.8-100.4 DegF] 98.4 DegF (12/18/21 12:29 AM) Mode of Delivery (Oxygen) Room air (12/18/21 12:30 AM) Blood pressure sites Arm, right (12/18/21 12:30 AM) Temperature Route Oral (12/18/21 12:29 AM) Dry Weight 123.8 kg (12/17/21 11:56 PM) Weight Obtained Via Standing scale (12/17/21 11:56 PM) Social History Social History Type Response Smoking Status Never smoker entered on: 12/01/14 Sex
--- OUTSIDE RECORDS SUMMARY | 2024-04-21 09:20 | XMS_ITS | Continuity of Care Document ---
Author Organization [facility] Address [address] [place] [address]- Care Team Providers Care Social Services Manager Name Role Phone Roopa Duff MD Primary Care Physician [place] [facility] [place] Date(s): 03/16/23 - 04/22/23 [facility] [address]- Attending Physician: Huyen Montalvo MD Admitting Physician: Huyen Montalvo MD Allergies, Adverse Reactions, Alerts No Known Allergies Immunizations Given and Recorded Vaccine Date Status Refusal Reason tetanus/diphtheria/pertussis, acel(Tdap) 05/29/22 Given influenza virus vaccine, inactivated 05/29/22 Give n SARS-CoV-2 mRNA (blmtign-hucq-sbgmz) vax 11/06/21 Recorded SARS-CoV-2 (COVID-19) mRNA-1273 vaccine 11/22/20 R ecorded SARS-CoV-2 (COVID-19) mRNA-1273 vaccine 10/26/20 R ecorded Medications ferrous sulfate 325 mg oral tablet 1 tablet = 325 mg, By Mouth, Daily, # 90 tablet, 6 Refills, Maintenance, 07/11/22 12:28:00 EST, Tablet, [facility] #[id number], Partial fill upon patient request if the prescription is for a schedule II opioid drug., 165, cm, 07/11/22 12:23:00 ES... Start Date: 07/11/22 Status: Ordered Multivitamins with Folic Acid 1 mg oral tablet 1 tablet, By Mouth, Daily, # 90 tablet, 2 Refills, Maintenance, 02/14/22 8:27:00 EDT, Tablet, [facility] #[id number], Partial fill upon patient request if the prescription is for a schedule II opioid drug., 1 tablet By Mouth Daily, 165, cm, 01/29... Start Date: 02/14/22 Status: Ordered Problem List Condition Confirmation Course Effective Dates Status Health St atus Informant Uses Northern Irish as primary spoken language Confirmed Active Severe obesity Confirmed Active Social History Social History Type Response Tobacco Other: hookah once a month. Sex Female Patient Care team information Care Team Personnel Name: Roopa Duff MD Position: [facility] Resident Member Role: PCP Address: Address: [address] [place] [address]- Care Team Related Persons Name: RADHA PASCAL Address: [address] Address: home [address] [place] [address] Name: MANSOOR GIL Address: home [address] [place] [address]
--- OUTSIDE RECORDS SUMMARY | 2024-04-21 09:20 | XMS_ITS | Continuity of Care Document ---
[facility] Address [address], [address] [place] [address]- Care Team Providers Care Tax Technician Name Role Phone Roopa Duff MD Primary Care Physician En[facility] [place] Date(s): 12/18/21 - [facility]17[facility] [address] [place], [place] [address] Allergies, Adverse Reactions, Alerts No Known Allergies Immunizations Given and Recorded Vaccine Date Status Refusal Reason SARS-CoV-2 mRNA (ltlggao-hxwm-zuokg) vax 11/06/21 Recorded SARS-CoV-2 (COVID-19) mRNA-1273 vaccine 11/22/20 R ecorded SARS-CoV-2 (COVID-19) mRNA-1273 vaccine 10/26/20 R ecorded Medications Multivitamins with Vitamin B Complex, Vitamin C, Minerals and L- Methylfolate oral capsule 1 capsule, By Mouth, Daily, # 90 capsule, 0 Refills, Maintenance, 12/26/21 11:29:00 EDT, Capsule, [facility] #[id number], Partial fill upon patient request if the prescription is for a schedule II opioid drug., 1 capsule By Mouth Daily, 165, cm,... Start Date: 12/26/21 Status: Ordered Tylenol Extra Strength 500 mg oral tablet 2 tablet = 1,000 mg, By Mouth, Every 6 hours, PRN as needed for fever, # 50 tablet, 0 Refills, Maintenance, 12/30/21 23:17:00 EDT, Tablet, [facility] #[id number], Partial fill upon patient request if the prescription is for a schedule II opioid d... Start Date: 12/30/21 Status: Ordered Problem List Condition Effective Dates Status Health Status Inform ant Severe obesity(Confirmed) Active Social History Social History Type Response Tobacco Other: hookah once a month. Sex
--- OUTSIDE RECORDS SUMMARY | 2024-04-21 09:20 | XMS_ITS | Continuity of Care Document ---
Author Organization [facility] Address [address] [place] [address]- Care Team Providers Care Licensing Specialist Name Role Phone Roopa Duff MD Primary Care Physician En[place] [facility] [place] Date(s): 07/02/23 - 08/01/23 [facility] [address]- Attending Physician: Mili Logan Admitting Physician: AdmMili apodaca Referring Physician: Admtr, Ar8 Allergies, Adverse Reactions, Alerts No Known Allergies Immunizations Given and Recorded Vaccine Date Status Refusal Reason influenza virus vaccine, inactivated 06/11/23 Give n influenza virus vaccine, inactivated 05/29/22 Give n tetanus/diphtheria/pertussis, acel(Tdap) 05/29/22 Given SARS-CoV-2 mRNA (pwfpqtc-hado-emawg) vax 11/06/21 Recorded SARS-CoV-2 (COVID-19) mRNA-1273 vaccine 11/22/20 R ecorded SARS-CoV-2 (COVID-19) mRNA-1273 vaccine 10/26/20 R ecorded Medications naproxen 375 mg oral tablet 375 mg, 1, tablet, By Mouth, 2 times a day, PRN, with food, # 30 tablet, Refills 0, Tot. Refills 0,Maintenance, Headache, 06/22/23 17:03:00 EST, Route to Pharmacy Electronically, [facility] #[id number], Partial fill upon patient request if the p... Start Date: 06/22/23 Status: Ordered Nexplanon = 68 mg, Subcutaneous Infusion, Once, 0 Refills, Maintenance, 06/11/23 14:56:00 EDT, Partial fill upon patient request if the prescription is for a schedule II opioid drug. Start Date: 06/11/23 Status: Ordered Problem List Condition Confirmation Course Effective Dates Status H ealth Status Informant Hyperlipidemia Confirmed Active Uses Albanian as primary spoken language Confirmed Active Prediabetes Confirmed Active Severe obesity Confirmed Active Social History Social History Type Response Tobacco Other: hookah once a month. Sex Female Patient Care team information Care Team Personnel Name: Roopa Duff MD Position: [facility] Resident Member Role: PCP Address: Address: [address] [place] [address]- Care Team Related Persons Name: RADHA PASCAL Address: [address] Address: [address] [place] [address] [place] Name: MANSOOR GIL Address: home [address] [place] [address]
--- OUTSIDE RECORDS SUMMARY | 2024-04-21 09:20 | XMS_ITS | Continuity of Care Document ---
Author Organization [facility] Address [address] [place] [address]- Care Team Providers Care Purifying Plant Operator Name Role Phone Roopa Duff MD Primary Care Physician [phone] [place] [facility] [place] - 06/15/[address] [address] Allergies, Adverse Reactions, Alerts No Known Allergies Immunizations Given and Recorded Vaccine Date Status Refusal Reason tetanus/diphtheria/pertussis, acel(Tdap) 05/29/22 Given influenza virus vaccine, inactivated 05/29/22 Give n SARS-CoV-2 mRNA (fjahfff-vhxf-uvers) vax 11/06/21 Recorded SARS-CoV-2 (COVID-19) mRNA-1273 vaccine 11/22/20 R ecorded SARS-CoV-2 (COVID-19) mRNA-1273 vaccine 10/26/20 R ecorded Medications aspirin 81 mg oral tablet, chewable 162 mg, 2, tablet, By Mouth, Daily at bedtime, start at 12weeks until 2 weeks , # 60 tablet, Refills 7, Tot. Refills 7, Maintenance, 01/29/22 8:40:00 EDT, Route to Pharmacy Electronically, [facility] #[id number], Partial fill upon patie... Start Date: 01/29/22 Status: Ordered ferrous sulfate 325 mg oral tablet 1 tablet = 325 mg, By Mouth, Daily, # 90 tablet, 0 Refills, Maintenance, 05/23/22 17:30:00 EDT, Tablet, [facility] #[id number], Partial fill upon patient request if the prescription is for a schedule II opioid drug., 165, cm, 05/13/22 13:50:00 ED... Start Date: 05/23/22 Status: Ordered Multivitamins with Folic Acid 1 mg oral tablet 1 tablet, By Mouth, Daily, # 90 tablet, 2 Refills, Maintenance, 02/14/22 8:27:00 EDT, Tablet, [facility] #[id number], Partial fill upon patient request if the prescription is for a schedule II opioid drug., 1 tablet By Mouth Daily, 165, cm, 01/29... Start Date: 02/14/22 Status: Ordered Tylenol Extra Strength 500 mg oral tablet 2 tablet = 1,000 mg, By Mouth, Every 6 hours, PRN as needed for fever, # 50 tablet, 0 Refills, Maintenance, 05/01/22 8:47:00 EDT, Tablet, [facility] #[id number], Partial fill upon patient request if the prescription is for a schedule II opioid drDimitry Start Date: 05/01/22 Status: Ordered Vitamin B6 50 mg oral tablet 50 mg, 1, tablet, By Mouth, 2 times a day, PRN, # 60 tablet, Refills 1, Tot. Refills 1, Maintenance, Nausea & Vomiting, 05/01/22 8:49:00 EDT, Route to Pharmacy Electronically, [facility] #[id number], Partial fill upon patient request if the presc... Start Date: 05/01/22 Status: Ordered Problem List Condition Confirmation Course Effective Dates Status Health St atus Informant History of UTI Confirmed Active Uses Swedish as primary spoken language Confirmed Active Obesity during Confirmed Active Confirmed Active Severe obesity Confirmed Active Social History Social History Type Response Tobacco Other: hookah once a month. Sex Patient Care team information Personnel Name: Roopa Duff MD Address: Address: [address] [place] [address]
--- OUTSIDE RECORDS SUMMARY | 2024-04-21 09:20 | XMS_ITS | Continuity of Care Document ---
Author Organization [facility] Address Unknown Care Team Providers Care Corporate Compliance Officer Name Role Phone Roopa Duff MD Primary Care Physician Encounter [facility] [place] Date(s): 12/16/21 - 01/15/22 [facility] Allergies, Adverse Reactions, Alerts No Known Allergies Immunizations Given and Recorded Vaccine Date Status Refusal Reason SARS-CoV-2 mRNA (dhirtfo-waua-rarhe) vax 11/06/21 Recorded SARS-CoV-2 (COVID-19) mRNA-1273 vaccine 11/22/20 R ecorded SARS-CoV-2 (COVID-19) mRNA-1273 vaccine 10/26/20 R ecorded Medications Augmentin 500 mg-125 mg oral tablet 1 tablet, By Mouth, Every 12 hours, for 7 days, # 14 tablet, 0 Refills, Acute 01/17/22 13:53:00 EDT, 01/10/22 13:53:00 EDT, Tablet, [facility] #[id number], Partial fill upon patient request if the prescription is for a schedule II opioid drug., 1... Start Date: 01/10/22 Stop Date: 01/17/22 Status: Ordered Multivitamins with Vitamin B Complex, Vitamin C, Minerals and L- Methylfolate oral capsule 1 capsule, By Mouth, Daily, # 90 capsule, 0 Refills, Maintenance, 12/26/21 11:29:00 EDT, Capsule, [facility] #[id number], Partial fill upon patient request if the prescription is for a schedule II opioid drug., 1 capsule By Mouth Daily, 165, cm,... Start Date: 12/26/21 Status: Ordered Tylenol Extra Strength 500 mg oral tablet 2 tablet = 1,000 mg, By Mouth, Every 6 hours, PRN as needed for fever, # 50 tablet, 0 Refills, Maintenance, 12/30/21 23:17:00 EDT, Tablet, [facility] #[id number], Partial fill upon patient request if the prescription is for a schedule II opioid d... Start Date: 12/30/21 Status: Ordered Problem List Condition Effective Dates Status Health Status Inform ant Severe obesity(Confirmed) Active Social History Social History Type Response Tobacco Other: hookah once a month. Sex
--- OUTSIDE RECORDS SUMMARY | 2024-04-21 09:20 | XMS_ITS | Continuity of Care Document ---
Author Organization [facility] Address [address] [place] [address]- Care Team Providers Care Welding Tester Name Role Phone Omega LEOS, Roopa Primary Care Physician Encounter [facility] [place] Date(s): 05/16/22 - 06/15/[address] [address] Allergies, Adverse Reactions, Alerts No Known Allergies Immunizations Given and Recorded Vaccine Date Status Refusal Reason tetanus/diphtheria/pertussis, acel(Tdap) 05/29/22 Given influenza virus vaccine, inactivated 05/29/22 Give n SARS-CoV-2 mRNA (ndqbfsj-zkrn-mgiin) vax 11/06/21 Recorded SARS-CoV-2 (COVID-19) mRNA-1273 vaccine 11/22/20 R ecorded SARS-CoV-2 (COVID-19) mRNA-1273 vaccine 10/26/20 R ecorded Medications aspirin 81 mg oral tablet, chewable 162 mg, 2, tablet, By Mouth, Daily at bedtime, start at 12weeks until 2 weeks , # 60 tablet, Refills 7, Tot. Refills 7, Maintenance, 01/29/22 8:40:00 EDT, Route to Pharmacy Electronically, [facility] #[id number], Partial fill upon patie... Start Date: 01/29/22 Status: Ordered ferrous sulfate 325 mg oral tablet 1 tablet = 325 mg, By Mouth, Daily, # 90 tablet, 0 Refills, Maintenance, 05/23/22 17:30:00 EDT, Tablet, [facility] #[id number], Partial fill upon patient request if the prescription is for a schedule II opioid drug., 165, cm, 05/13/22 13:50:00 ED... Start Date: 05/23/22 Status: Ordered Multivitamins with Folic Acid 1 mg oral tablet 1 tablet, By Mouth, Daily, # 90 tablet, 2 Refills, Maintenance, 02/14/22 8:27:00 EDT, Tablet, [facility] #[id number], Partial fill upon patient request if the prescription is for a schedule II opioid drug., 1 tablet By Mouth Daily, 165, cm, 01/29... Start Date: 02/14/22 Status: Ordered Tylenol Extra Strength 500 mg oral tablet 2 tablet = 1,000 mg, By Mouth, Every 6 hours, PRN as needed for fever, # 50 tablet, 0 Refills, Maintenance, 05/01/22 8:47:00 EDT, Tablet, [facility] #[id number], Partial fill upon patient request if the prescription is for a schedule II opioid drDimitry Start Date: 05/01/22 Status: Ordered Vitamin B6 50 mg oral tablet 50 mg, 1, tablet, By Mouth, 2 times a day, PRN, # 60 tablet, Refills 1, Tot. Refills 1, Maintenance, Nausea & Vomiting, 05/01/22 8:49:00 EDT, Route to Pharmacy Electronically, [facility] #[id number], Partial fill upon patient request if the presc... Start Date: 05/01/22 Status: Ordered Problem List Condition Confirmation Course Effective Dates Status Health St atus Informant History of UTI Confirmed Active Uses Danish as primary spoken language Confirmed Active Obesity during Confirmed Active Confirmed Active Severe obesity Confirmed Active Social History Social History Type Response Tobacco Other: hookah once a month. Sex Patient Care team information Personnel Name: Roopa Duff MD Address: Address: [address] [place] [address]
--- OUTSIDE RECORDS SUMMARY | 2024-04-21 09:20 | XMS_ITS | Continuity of Care Document ---
Author Organization [facility] Address [address] [place] [address]- Care Team Providers Care Spooler Name Role Phone Roopa Duff MD Primary Care Physician [phone] [place] [facility] [place] Date(s): 03/23/23 - 04/22/23 [facility] [address]- Attending Physician: Admconstanza, Mili Admitting Physician: Admtr, Mili Referring Physician: Admtr, Ar8 Allergies, Adverse Reactions, Alerts No Known Allergies Immunizations Given and Recorded Vaccine Date Status Refusal Reason tetanus/diphtheria/pertussis, acel(Tdap) 05/29/22 Given influenza virus vaccine, inactivated 05/29/22 Give n SARS-CoV-2 mRNA (flijlsl-lgno-dkhul) vax 11/06/21 Recorded SARS-CoV-2 (COVID-19) mRNA-1273 vaccine 11/22/20 R ecorded SARS-CoV-2 (COVID-19) mRNA-1273 vaccine 10/26/20 R ecorded Medications ferrous sulfate 325 mg oral tablet 1 tablet = 325 mg, By Mouth, Daily, # 90 tablet, 6 Refills, Maintenance, 07/11/22 12:28:00 EST, [facility] #[id number], Partial fill upon patient request if the prescription is for a schedule II opioid drug., 165, cm, 07/11/22 12:23:00 ES... Start Date: 07/11/22 Status: Ordered Multivitamins with Folic Acid 1 mg oral tablet 1 tablet, By Mouth, Daily, # 90 tablet, 2 Refills, Maintenance, 02/14/22 8:27:00 EDT, [facility] #[id number], Partial fill upon patient request if the prescription is for a schedule II opioid drug., 1 tablet By Mouth Daily, 165, cm, 01/29... Start Date: 02/14/22 Status: Ordered Problem List Condition Confirmation Course Effective Dates Status Health St atus Informant Uses Latvian as primary spoken language Confirmed Active Severe obesity Confirmed Active Social History Social History Type Response Tobacco Other: hookah once a month. Sex Female Patient Care team information Care Team Personnel Name: Roopa Duff MD Position: [facility] Resident Member Role: PCP Address: Address: [address] [place] [address]- Care Team Related Persons Name: RADHA PASCAL Address: [address] Address: home [address] Name: MANSOOR GIL Address: home [address] [place] [address]
--- OUTSIDE RECORDS SUMMARY | 2024-04-21 09:20 | XMS_ITS | Continuity of Care Document ---
Author Organization [facility] Address Unknown Care Team Providers Care Business Continuity Global Director Name Role Phone Haleigh LEOS, Evelio Maguire Primary Care Physicia n Encounter [facility] Date(s): 05/08/21 - 06/07/21 [facility] Allergies, Adverse Reactions, Alerts Substance Reaction Severity Status NKA Active Social History Social History Type Response Smoking Status Never smoker entered on: 12/01/14 Sex
--- OUTSIDE RECORDS SUMMARY | 2024-04-21 09:20 | XMS_ITS | Continuity of Care Document ---
Author Organization [facility] Address [address] [place] [address]- Care Team Providers Care Web Designer Name Role Phone Roopa Duff MD Primary Care Physician Encounter [facility] Date(s): 12/18/21 - 01/17/[address] [address] Allergies, Adverse Reactions, Alerts No Known Allergies Immunizations Given and Recorded Vaccine Date Status Refusal Reason SARS-CoV-2 mRNA (zsbagst-zmvj-unlrj) vax 11/06/21 Recorded SARS-CoV-2 (COVID-19) mRNA-1273 vaccine 11/22/20 R ecorded SARS-CoV-2 (COVID-19) mRNA-1273 vaccine 10/26/20 R ecorded Medications Multivitamins with Vitamin B Complex, Vitamin C, Minerals and L- Methylfolate oral capsule 1 capsule, By Mouth, Daily, # 90 capsule, 0 Refills, Maintenance, 12/26/21 11:29:00 EDT, Capsule, [facility] #[id number], Partial fill upon patient request if the prescription is for a schedule II opioid drug., 1 capsule By Mouth Daily, 165, cm,... Start Date: 12/26/21 Status: Ordered Tylenol Extra Strength 500 mg oral tablet 2 tablet = 1,000 mg, By Mouth, Every 6 hours, PRN as needed for fever, # 50 tablet, 0 Refills, Maintenance, 12/30/21 23:17:00 EDT, Tablet, [facility] #[id number], Partial fill upon patient request if the prescription is for a schedule II opioid d... Start Date: 12/30/21 Status: Ordered Problem List Condition Effective Dates Status Health Status Inform ant Severe obesity(Confirmed) Active Social History Social History Type Response Tobacco Other: hookah once a month. Sex
--- OUTSIDE RECORDS SUMMARY | 2024-04-21 09:20 | XMS_ITS | Continuity of Care Document ---
Author Organization [facility] Address [address] [place] [address]- Care Team Providers Care Music Store Manager Name Role Phone Roopa Duff MD Primary Care Physician Encounter [facility] [place] Date(s): 12/30/21 - 12/31/[address] [address] Discharge Disposition: A-D/C Home Attending Physician: Marcella Butt MD Admitting Physician: Marcella Butt MD Referring Physician: Marcella Butt MD Allergies, Adverse Reactions, Alerts No Known Allergies Medications Multivitamins with Vitamin B Complex, Vitamin C, Minerals and L- Methylfolate oral capsule 1 capsule, By Mouth, Daily, # 90 capsule, 0 Refills, Maintenance, 12/26/21 11:29:00 EDT, Capsule, [facility] #[id number], Partial fill upon patient request if the prescription is for a schedule II opioid drug., 1 capsule By Mouth Daily, 165, cm,... Start Date: 12/26/21 Status: Ordered Tamiflu 75 mg oral capsule 1 capsule = 75 mg, By Mouth, Every 12 hours, for 5 days, # 9 capsule, 0 Refills, Acute 01/04/22 23:15:00 EDT, 12/30/21 23:15:00 EDT, Capsule, [facility] #[id number], Partial fill upon patient request if the prescription is for a schedule II opioi... Start Date: 12/30/21 Stop Date: 01/04/22 Status: Ordered Tylenol 325 mg oral tablet 975 mg, Tablet, By Mouth, Once, PRN for Temperature, STAT, 12/30/21 20:14:00 EDT Start Date: 12/30/21 Stop Date: 12/30/21 Status: Completed Tylenol Extra Strength 500 mg oral tablet 2 tablet = 1,000 mg, By Mouth, Every 6 hours, PRN as needed for fever, # 50 tablet, 0 Refills, Maintenance, 12/30/21 23:17:00 EDT, Tablet, [facility] #[id number], Partial fill upon patient request if the prescription is for a schedule II opioid d... Start Date: 12/30/21 Status: Ordered Problem List Condition Effective Dates Status Health Status Inform ant Severe obesity(Confirmed) Active Vital Signs Most recent to oldest [Reference Range]: 1 2 3 Weight 121.6 kg (12/30/21 7:17 PM) Oxygen Saturation [94-100 %] 100 % (12/30/21 9:14 PM) 99 % (12/30/21 8:05 PM) Pulse Rate [55-90 bpm] 112 bpm *H* (12/30/21 8:05 PM) Blood Pressure [90-138/55-84 mm Hg] 106/53mm Hg (12/30/21 8:05 PM) Respiratory Rate [16-30 br/min] 20 br/min (12/30/21 10:56 PM) 20 br/min (12/30/21 9:14 PM) 20 br/min (12/30/21 8:05 PM) Temperature [96.8-100.4 DegF] 100.5 DegF *H* (12/30/21 10:57 PM) 100.0 DegF (12/30/21 10:03 PM) 101.5 DegF *H* (12/30/21 9:11 PM) Mode of Delivery (Oxygen) Room air (12/30/21 9:14 PM) Room air (12/30/21 8:05 PM) Blood pressure sites Arm, left (12/30/21 8:05 PM) Temperature Route Oral (12/30/21 10:57 PM) Oral (12/30/21 10:03 PM) Oral (12/30/21 9:11 PM) Dry Weight 121.6 kg (12/30/21 7:17 PM) Weight Obtained Via Standing scale (12/30/21 7:17 PM) Dry Weight Obtained Via Standing scale (12/30/21 7:17 PM) Social History Social History Type Response Tobacco Other: hookah once a month. Sex
--- OUTSIDE RECORDS SUMMARY | 2024-04-21 09:20 | XMS_ITS | Continuity of Care Document ---
Author Organization [facility] Address [address] [place] [address]- Care Team Providers Care Residential Living Assistant Name Role Phone Roopa Duff MD Primary Care Physician [place] [facility] [place] - 09/11/[address] [address] Attending Physician: Not on Staff, Attending MD Allergies, Adverse Reactions, Alerts No Known Allergies Immunizations Given and Recorded Vaccine Date Status Refusal Reason tetanus/diphtheria/pertussis, acel(Tdap) 05/29/22 Given influenza virus vaccine, inactivated 05/29/22 Give n SARS-CoV-2 mRNA (cfzczta-njzt-sarhe) vax 11/06/21 Recorded SARS-CoV-2 (COVID-19) mRNA-1273 vaccine 11/22/20 R ecorded SARS-CoV-2 (COVID-19) mRNA-1273 vaccine 10/26/20 R ecorded Medications ferrous sulfate 325 mg oral tablet 1 tablet = 325 mg, By Mouth, Daily, # 90 tablet, 6 Refills, Maintenance, 07/11/22 12:28:00 EST, Tablet, [facility] #[id number], Partial fill upon patient request if the prescription is for a schedule II opioid drug., 165, cm, 07/11/22 12:23:00 ES... Start Date: 07/11/22 Status: Ordered Multivitamins with Folic Acid 1 mg oral tablet 1 tablet, By Mouth, Daily, # 90 tablet, 2 Refills, Maintenance, 02/14/22 8:27:00 EDT, [facility][id number], Partial fill upon patient request if the prescription is for a schedule II opioid drug., 1 tablet By Mouth Daily, 165, cm, 01/29... Start Date: 02/14/22 Status: Ordered Problem List Condition Confirmation Course Effective Dates Status Health St atus Informant Uses Lithuanian as primary spoken language Confirmed Active Severe obesity Confirmed Active Social History Social History Type Response Tobacco Other: hookah once a month. Sex Female Patient Care team information Care Team Personnel Name: Roopa Duff MD Position: [facility] Resident Member Role: PCP Address: Address: [address] [place] [address]- Care Team Related Persons Name: RADHA PASCAL Address: [address] Address: home [address] [place] [address] [place] Name: MANSOOR GIL Address: home [address] [place] [address]
--- OUTSIDE RECORDS SUMMARY | 2024-04-21 09:20 | XMS_ITS | Continuity of Care Document ---
[facility] Address [address], [address] [place] [address]- Care Team Providers Care Dispatcher Chief Coal Slurry Name Role Phone Omega LEOS, Roopa Primary Care Physician [phone] En[place] [facility] [place] Date(s): 02/05/22 - 03/07/22 [facility] [address], [address] [place] [address]- Allergies, Adverse Reactions, Alerts No Known Allergies Immunizations Given and Recorded Vaccine Date Status Refusal Reason SARS-CoV-2 mRNA (ywknsds-vdbb-yuhez) vax 11/06/21 Recorded SARS-CoV-2 (COVID-19) mRNA-1273 vaccine 11/22/20 R ecorded SARS-CoV-2 (COVID-19) mRNA-1273 vaccine 10/26/20 R ecorded Medications aspirin 81 mg oral tablet, chewable 162 mg, 2, tablet, By Mouth, Daily at bedtime, start at 12weeks until 2 weeks , # 60 tablet, Refills 7, Tot. Refills 7, Maintenance, 01/29/22 8:40:00 EDT, Route to Pharmacy Electronically, [facility] #[id number], Partial fill upon patie... Start Date: 01/29/22 Status: Ordered Multivitamins with Folic Acid 1 mg oral tablet 1 tablet, By Mouth, Daily, # 90 tablet, 2 Refills, Maintenance, 02/14/22 8:27:00 EDT, Tablet, [facility] #[id number], Partial fill upon patient request if the prescription is for a schedule II opioid drug., 1 tablet By Mouth Daily, 165, cm, 01/29... Start Date: 02/14/22 Status: Ordered Tylenol Extra Strength 500 mg oral tablet 2 tablet = 1,000 mg, By Mouth, Every 6 hours, PRN as needed for fever, # 50 tablet, 0 Refills, Maintenance, 12/30/21 23:17:00 EDT, Tablet, [facility] #[id number], Partial fill upon patient request if the prescription is for a schedule II opioid d... Start Date: 12/30/21 Status: Ordered Problem List Condition Effective Dates Status Health Status Inform ant History of UTI(Confirmed) Active Uses Serbian as primary spok en language(Confirmed) Active Obesity during (Confirmed) Active (Confirmed) Active Severe obesity(Confirmed) Active Social History Social History Type Response Tobacco Other: hookah once a month. Sex
--- OUTSIDE RECORDS SUMMARY | 2024-04-21 09:20 | XMS_ITS | Continuity of Care Document ---
Author Organization [facility] Address [address] [place] [address]- Care Team Providers Care Registered Nurse Maternal Child Name Role Phone Roopa Duff MD Primary Care Physician [place] [facility] [place] Date(s[place] 06/15/23 - 07/15/23 [facility] [place] [facility] [address]- [place] Allergies, Adverse Reactions, Alerts No Known Allergies Immunizations Given and Recorded Vaccine Date Status Refusal Reason influenza virus vaccine, inactivated 06/11/23 Give n influenza virus vaccine, inactivated 05/29/22 Give n tetanus/diphtheria/pertussis, acel(Tdap) 05/29/22 Given SARS-CoV-2 mRNA (kyyqfkh-jmxr-asaiv) vax 11/06/21 Recorded SARS-CoV-2 (COVID-19) mRNA-1273 vaccine 11/22/20 R ecorded SARS-CoV-2 (COVID-19) mRNA-1273 vaccine 10/26/20 R ecorded Medications naproxen 375 mg oral tablet 375 mg, 1, tablet, By Mouth, 2 times a day, PRN, with food, # 30 tablet, Refills 0, Tot. Refills 0,Maintenance, Headache, 06/22/23 17:03:00 EST, Route to Pharmacy Electronically, [facility] #[id number], Partial fill upon patient request if the p... Start Date: 06/22/23 Status: Ordered Nexplanon = 68 mg, Subcutaneous Infusion, Once, 0 Refills, Maintenance, 06/11/23 14:56:00 EDT, Partial fill upon patient request if the prescription is for a schedule II opioid drug. Start Date: 06/11/23 Status: Ordered Problem List Condition Confirmation Course Effective Dates Status H ealth Status Informant Hyperlipidemia Confirmed Active Uses Cook Islander as primary spoken language Confirmed Active Prediabetes Confirmed Active Severe obesity Confirmed Active Social History Social History Type Response Tobacco Other: hookah once a month. Sex Female Patient Care team information Care Team Personnel Name: Roopa Duff MD Position: [facility] Resident Member Role: PCP Address: Address: [address] [place] [address]- Care Team Related Persons Name: RADHA PASCAL Address: [id number] Address: home [address] [place] [id number] [place] Name: MANSOOR GIL Address: home [address] [place] [address]
--- OUTSIDE RECORDS SUMMARY | 2024-04-21 09:20 | XMS_ITS | Continuity of Care Document ---
Author Organization [facility] Address [address] [place] [id number]- Care Team Providers Care Groover And Striper Operator Name Role Phone Omega LEOS, Roopa Primary Care Physician Encounter [facility] Date(s): 08/12/22 - 08/15/[address] [address] Discharge Disposition: A-D/C Home Attending Physician: Brooke Patel MD Admitting Physician: Brooke Patel MD Referring Physician: Elisabeth Tripp DO Allergies, Adverse Reactions, Alerts No Known Allergies Immunizations Given and Recorded Vaccine Date Status Refusal Reason tetanus/diphtheria/pertussis, acel(Tdap) 05/29/22 Given influenza virus vaccine, inactivated 05/29/22 Give n SARS-CoV-2 mRNA ([id number]) vax 11/06/21 Recorded SARS-CoV-2 (COVID-19) mRNA-1273 vaccine 11/22/20 R ecorded SARS-CoV-2 (COVID-19) mRNA-1273 vaccine 10/26/20 R ecorded Medications Acetaminophen Tablet 650 mg, Tablet, By Mouth, Every 4 hours, PRN for Pain , Mild, (1-3), may give 325mg per patient preference and re-dose with 325mg within 4 hours, if needed. Patient should only receive a total of 650mg of Acetaminophen every 4 hours., Routine, 08/14... Start Date: 08/14/22 Stop Date: 08/16/22 Status: Discontinued ferrous sulfate 325 mg oral tablet 1 tablet = 325 mg, By Mouth, Daily, # 90 tablet, 6 Refills, Maintenance, 07/11/22 12:28:00 EST, Tablet, [id number], Partial fill upon patient request if the prescription is for a schedule II opioid drug., 165, cm, 07/11/22 12:23:00 ES... Start Date: 07/11/22 Status: Ordered Ibuprofen Tablet 800 mg, Tablet, By Mouth, Every 8 hours, PRN for Pain , Moderate, (4-6), may give 400mg per patientpreference and re-dose with 400mg within 8 hours if needed. Patient should only receive a total of 800mg of Ibuprofen every 8 hours., Routine, ... Start Date: 08/14/22 Stop Date: 08/16/22 Status: Discontinued Multivitamins with Folic Acid 1 mg oral tablet 1 tablet, By Mouth, Daily, # 90 tablet, 2 Refills, Maintenance, 02/14/22 8:27:00 EDT, Tablet, [facility] #[id number], Partial fill upon patient request if the prescription is for a schedule II opioid drug., 1 tablet By Mouth Daily, 165, cm, 01/29... Start Date: 02/14/22 Status: Ordered Problem List Condition Confirmation Course Effective Dates Status Health St atus Informant Uses Beninese as primary spoken language Confirmed Active Severe obesity Confirmed Active Vital Signs Most recent to oldest [Reference Range]: 1 2 3 Height 165 cm (08/15/22 7:19 AM) 165 cm (08/15/22 12:58 AM) 165 cm (08/14/22 6:07 PM) Weight 140 kg (08/12/22 9:04 AM) Oxygen Saturation [94-100 %] 99 % (08/15/22 7:19 AM) 99 % (08/14/22 6:07 PM) 100 % (08/14/22 12:58 PM) Pulse Rate [55-90 bpm] 99 bpm *H* (08/15/22 12:09 PM) 105 bpm *H* (08/15/22 7:19 AM) 99 bpm *H* (08/15/22 2:13 AM) Body Mass Index [18.5-24.99 kg/m2] 51.42 kg/m2 *>HHI* (08/12/22 9:04 AM) Blood Pressure [90-138/55-84 mm Hg] 117/70mm Hg (08/15/22 12:09 PM) 118/65mm Hg (08/15/22 7:37 AM) 137/86mm Hg (08/15/22 7:19 AM) Respiratory Rate [16-30 br/min] 18 br/min (08/15/22 7:53 AM) 18 br/min (08/15/22 7:53 AM) 18 br/min (08/15/22 7:19 AM) Temperature [96.8-100.4 DegF] 98.4 DegF (08/15/22 7:19 AM) 97.9 DegF (08/14/22 9:54 PM) 97.8 DegF (08/14/22 8:20 AM) Mode of Delivery (Oxygen) Room air (08/15/22 7:19 AM) Room air (08/14/22 9:54 PM) Room air (08/14/22 6:07 PM) Blood pressure sites Arm, left (08/15/22 12:09 PM) Arm, left (08/15/22 7:37 AM) Arm, left (08/15/22 7:19 AM) Temperature Route Oral (08/15/22 7:19 AM) Oral (08/14/22 9:54 PM) Oral (08/14/22 8:20 AM) Dry Weight 140 kg (08/12/22 9:04 AM) Social History Social History Type Response Tobacco Other: hookah once a month. Sex Female History and physical note * Lindsey LEOS, Sarah: PERFORM Event Display: History and Physical Hospital Authored Date: Patient: ??NARAYAN GILYADIRA ? Age:??22 Years?Sex:??Female?:??2000?? OB Reason for Admission OB Reason for Admission Reason for admission: Induction of labor Reason for Induction: Elective Method of Induction: Cervical Dozier Inpatient, Misoprostol, Pitocin LMP/EGA/ASTRID Gestational Age (EGA) and ASTRID? * Note: EGA calculated as of 08/12/2022 ?? ASTRID:??08/17/2022?EGA*:??39 weeks 2 days ? History?(0,0,0,0)?Method:??Last Menstrual Period??(11/10/2021) History of Present Illness Feafeld??is a??22??yo @??39w2d gestation??presenting for??IOL in the setting of the [facility] study.??She denies contractions,??LOF, VB. Endorses good movement. Denies fever/chills, DINERO, dizziness, changes in vision, CP, SOB, RUQ pain, UE/LE swelling. Accompanied by her mother and [id number]. Review of Systems Constitutional:??No fever, chills, or fatigue. HEENT:??No changes in vision, sneezing, congestion, runny nose or sore throat. Skin:??No rash or itching. Cardiovascular:??No chest pain. Respiratory:??No shortness of breath. Gastrointestinal:??No abdominal pain, anorexia, nausea/vomiting, constipation/diarrhea. Genitourinary:??No burning micturition, urinary frequency or incontinence. Gynecologic: No vaginal bleeding, vaginal discharge, or vaginal itching. Neurologic:??No headaches. Musculoskeletal:??No muscle pains. Psychiatric:??No depression or anxiety. Physical Exam Vitals & Measurements T:??97.4?F ?? HR:??88(Monitored)?? UT:??98?? RR:??18?? BP:??109/58?? SpO2:??98%?? HT:??165??cm?? WT:??140??kg?? BMI:??51.42?? Constitutional:??Well-developed, no acute distress. Respiratory:??Equal chest rise bilaterally, no labored breathing.? Cardiovascular:??Regular rate and rhythm.? Abdomen/GI:??Soft, non-tender, non-distended, no guarding or rebound tenderness.??Gravid. Gynecologic:?External Genitalia: normal exam, without lesions ??Vagina: no lesions, well-rugated ??Cervix: normal exam, no lesions Extremities:??Warm and well-perfused.?? Skin:??Normal for ethnicity. Neurological/Psychiatric:??Appearance appropriate, mood and affect stable. Presentation confirmed by:??[facility] by US OB Assessment Baby A Baseline:130 Baseline Description:Normal, 110-160 bpm Baseline Variability:Moderate variability Accelerations:Present Deceleration:None Activity:Present Uterine Monitor Mode, UterineExternal Assessment/Plan Assessment:??22 yo @ 39w2d gestation admitted for IOL in the setting of the [facility] study. GBS positive. Moderate risk PPH (BMI 51.47). Plan to start induction with miso, followed by dozier bulb placement (after first dose of miso). Cat I tracing with reassuring maternal and status. ?? Patient seen and reviewed with Reina Conklin CNM. ?? Encounter for induction of labor (Z34.90):? - Induction plan: Miso/dozier - Pain control: Open to all options - CEFM - Re-eval in 2 hrs or prn ?? Pap - anemia (x)??GBS??35-37wks 07/17: Positive Gc/ct negative FTS negative (x) AFP - too late Flu vaccine 05/29 (x) Covid vaccine moderna x3 (x) Anatomy US unremarkable 3VC, CL 4 cm, anterior placenta It's a boy! EPDS 0 on 01/06 tdap 28wks 05/29/22 EPDS??28wks - 1, 0 on 10 (x) 28 week labs (x) Feeding method: Plans breast, vital milk script sent 05/29 (x) Desires bosom buddies class, communicate sent 06/12 PPBC: Nexplanon ?? Anemia in (O99.019):? (p) CBC on L&D - Compliant with iron tablets ?? Obesity in (O99.210):? - BMI 45 at NOB - s/p nutrition consult 02/13/22 & follow-up 05/09/2022 - Early??GTT 90 - ASA 162mg PO daily - compliant (x) Weekly BPP at 36wks, ordered & scheduled (x) Growth US 32, EFW 61%ile (x) Growth US 36, EFW 79%ile Patient consented for [facility] study, IOL scheduled 08/12/22 ?? Positive GBS test (B95.1):? - PCN prophylaxis in active labor ?? Uses Beninese as primary spoken language (Z78.9):? - Patient speaks [place] Islander well but desires a per diem interpreter ?? OB History History?(0,0,0,0)?No previous pregnancies history have been recorded Labs Labs Labs & Tests Antibody Screen: Negative (01/09/22) Blood Type: O Positive (12/18/21) Creatinine-Blood: 0.5 mg/dL (12/17/21) Down Syndrome Age Risk FTS: Age Risk: (01/27/22) Down Syndrome Scrn Risk FTS: Screening Risk: (01/27/22) Glucose 50 Gm, +60 Minutes: 97 mg/dL (05/13/22) Hct: 36.1 % (08/12/22) Hemoglobinopathy Interpretation: Normal hemoglobins, with anemia. (01/09/22) Hepatitis B Surface Antigen: NEGATIVE (01/09/22) Hepatitis C Ab: NEGATIVE (01/09/22) Hgb:??11.6 Gm/dL??Low (08/12/22) HIV 4th Generation Ab-Ag Result: NEGATIVE (01/09/22) RPR Titer Result: NOT INDICATED (05/22/22) Rubella IgG Ab: POSITIVE (01/09/22) Syphilis Screen by DARSHANA: NEGATIVE (05/22/22) Trisomy 18 Scrn Risk FTS: Screening Risk: (01/27/22) Urine Culture: Urine Culture (01/29/22) Problem List Active Active Problem List Anemia in : (Medical) History of UTI: (Medical) Obesity during : (Medical) : (Obstetric) (11/10/21) : (Medical) Severe obesity: (Medical) Uses Beninese as primary spoken language: (Medical) Procedure/Surgical History No qualifying data available. Home Medications Aspirin: 162 mg = 2 tablet, By Mouth, Daily at bedtime, start at 12weeks until 2 weeks Ferrous Sulfate: 325 mg = 1 tablet, By Mouth, Daily Multivitamin, : 1 tablet, By Mouth, Daily Allergies NKA Social History Alcohol Use: Past. 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 Regular exercise: No., 12/26/2021 Home/Environment Living situation: Home/Independent. Lives with: Mother, Brother. Feels unsafe at home: No. Domesticviolence in household: No. Alcohol in household: No. Substance abuse in household: No. Smoker in household: No., 01/06/2022 Nutrition/Health Diet: Regular., 12/26/2021 Sexual Sexually involved in last 6 months: Yes. Gender identity: Identifies as female. Self described orientation: Straight or heterosexual. Ever been sexually involved? Yes. Number of partners in last 6 months: 1. Gender of partner(s): Male., 12/26/2021 Substance Abuse Use: Never., 12/26/2021 Tobacco Other: hookah once a month., 12/26/2021 Never smoker, 12/01/2014 Family History Mother: Hypertension Father: Diabetes mellitus; Hypertension Mat. Grandmother: Breast cancer Mat. Grandfather: Prostate cancer Plan No Data Found * Amanda LEOS, Brooke Champion: PERFORM Event Display: History and Physical Hospital Authored Date: Attending note In to meet patient, introduced myself and explained role on team. Briefly reviewed hospital course and plan of care. I have discussed the case and its management with the resident and agree with the findings and randa documented in the resident???s note. Hospital Progress note * Dyan Haskins RN: SIGN, VERIFY, PERFORM Event Display: Progress Note Hospital Authored Date: Patient: LINDSEY GIL Age: 22 years Sex: Female : 2000 Associated Diagnoses: None Author: Dyan Haskins RN Findings Narrative/Incidental Patient is alert and oriented X4, able to follow commands. Patient medicated with Tylenol and Motrin as ordered. Patient OOB independently. Fundus is firm, midline and bleeding is mild; patient denies passing clots at this time. Patient voiding appropriately and reports she had a BM today, 08/14/22. Patient has been breast and bottle feeding; feeding sheet assessed. Safety checks completed. Mom and baby bonding well. . * Freedom AYALA Ashlyn: PERFORM Event Display: Progress Note Hospital Authored Date: [id number] Patient: ??JEFFERY, KYRIELD ? Age:??22 Years?Sex:??Female?:??2000?? Subjective In room to assess patient this AM. Patient is feeling??well. Pain is well controlled with current PO medications. Her lochia is??less than menses. She is ambulating, voiding spontaneously, passing flatus, tolerating PO intake without N/V, and??breast feeding. Contraception plan is Nexplanon.??Denies fevers/chills,??DINERO, RUQ pain, visual changes, chest pain, SOB, N/V, leg swelling. Review of Systems Constitutional:??Denies fever or chills HEENT:??Denies headache, blurry vision, or changes in vision. Cardiovascular: Denies??chest pain or palpitations. Respiratory:??Denies shortness of breath Gastrointestinal: Denies nausea, vomiting,??and abdominal pain, endorses cramping which is more significant with . FINANCIAL HEALTH COUNSELOR: Denies vaginal pain or excessive bleeding. Ext: Denies LE swelling or calf pain Physical Exam Vitals & Measurements T:??97.9?F ?? HR:??119(Monitored)?? UT:??97?? RR:??16?? BP:??125/59?? SpO2:??100%?? HT:??165??cm?? WT:??4.046??kg?? BMI:??51.42?? Constitutional: Pleasant, alert, cooperative, no acute distress. Lungs: Unlabored breathing. Clear to auscultation bilaterally with full symmetric breath sounds,??no crackles, no wheezing,??or rhonchi.? Cardiovascular: S1/S2, Regular rate and rhythm, no murmurs.? Abdomen/GI: Non-distended, soft, non-tender??no guarding. Fundus:??Below umbilicus, firm, non-tender. Medical Technologist Blood Bank: Minimal blood on pad, minimal swelling, repair intact. Extremities: No edema present bilaterally, no calf erythema. Skin: No rash or jaundice. Neurological/Psychiatric: Appearance appropriate, mood and affect stable. Assessment/Plan Assessment:??Patient is a 22 year old G1 now P1001 who is PPD1 from a vaginal delivery complicated by a 2 minute shoulder dystocia resolved with delivery of the posterior arm.??She is starting to meet milestones. ? New diagnosis of gestational hypertension. Reviewed diagnosis of gHTN with patient. She was counselled regarding the increased risk of preeclampsia and eclampsia following the diagnosis of gestational HTN as well as the increased risk of gHTN, preeclampsia and eclampsia in future pregnancies. She was also counselled that gHTN increases her risk of hypertensive disorders outside of and that it is important to notify her PCP regarding her diagnosis. Specifically, we discussed that though this condition is likely to improve by 6 weeks , it is an important predictor of future hypertension, metabolic syndrome, and arteriosclerotic cardiovascular disease. We discussed the signs and symptoms of preeclampsia including: headache, changes in vision, chest pain, shortness of breath, and right upper quadrant. ?? Patient counseled on new diagnosis of gestational hypertension. The spectrum of hypertensive disorders and the progressive nature of the diseases were reviewed with the patient. We discussed that laboratory studies have been ordered to further characterize her diagnosis, and that we will discuss the results with her. The complications of pre-eclampsia and hypertensive disorders were reviewed including eclampsia, stroke, renal dysfunction, liver dysfunction, HELLP syndrome. Red flags include: headache/ shortness of breath/ right-sided upper quadrant pain/ visual changes or even generally feeling unwell. ?? We also discussed that women with a history of hypertension in continue to have an elevated risk of cardiovascular disease (hypertension, myocardial infarction, congestive heart failure), cerebrovascular events (stroke), peripheral arterial disease, and cardiovascular mortality later in li fe, with an estimated doubling of odds compared with women unaffected by preeclampsia in subsequentyears. Preventive strategies to be considered by patients and health care providers may warrant closer long-term follow-up and lifestyle modifications to better manage risk factors for cardiovasculardisease (eg, achieving healthful weight, exercise, diet, smoking cessation), for which women and their primary care providers may maintain ongoing care and vigilance. ?? Gestational HTN (O13.9):? -(p) HELLP labs -monitor BPs and I&Os -( ) baby scripts on discharge ?? care following vaginal delivery (Z39.2):? - Cont routine post- care - Pain: Ibu/Tyl PRN - Bowel: Colace - Breast feed - Reg diet - ( ) PPBC: Nexplanon - ( ) Male baby: Circ ?? Uses Beninese as primary spoken language (Z78.9):? -converses well in [place] Islander without per diem interpreter -uses per diem interpreter for medical decision making ?? OB Summary : 1 . Baby A - Weight: 4.046 kg Baby A - Date, Time of : 08/13/22 23:31:00 Baby A - Gender: Male Baby A - Complications: None EGA at Documented Date, Time: 39W 3D Weight at Delivery Baby A - Delivery Type: Vaginal Delivery Complications: None OB History History?(0,0,0,0)?No previous pregnancies history have been recorded Active Problem List Active Problem List Anemia in : (Medical) History of UTI: (Medical) Obesity during : (Medical) : (Obstetric) (11/10/21) : (Medical) Severe obesity: (Medical) Uses Beninese as primary spoken language: (Medical) Home Medications Aspirin: 162 mg = 2 tablet, By Mouth, Daily at bedtime, start at 12weeks until 2 weeks Ferrous Sulfate: 325 mg = 1 tablet, By Mouth, Daily Multivitamin, : 1 tablet, By Mouth, Daily Medications Medications (7) Active SCHEDULED: (2) Carboprost 250 mcg/mL Inj (Carboprost Inj) ??250 mcg, Intramuscular, Once Etonogestrel 68 mg Implant (Nexplanon 68mg SQ Implant) ??68 mg 1 each, Intradermal, director call to Procedure CONTINUOUS: (0) PRN: (5) Acetaminophen 325 mg Tablet (Tylenol 325 mg oral tablet) ??975 mg, By Mouth, Every 6 hours Acetaminophen 325 mg Tablet (Acetaminophen Tablet) ??650 mg, By Mouth, Every 4 hours Calcium Carbonate 500 mg (Calcium 200 mg) Chewable Tablet (Tums 500 mg Tablet) ??1,000 mg 2 tablet,Chew, 3 times a day Docusate Sodium 100 mg Capsule (Docusate Sodium Capsule) ??100 mg 1 capsule, By Mouth, 2 times a day Ibuprofen 800 mg Tablet (Ibuprofen Tablet) ??800 mg, By Mouth, Every 8 hours * Abimbola Nunez MD: PERFORM Event Display: Progress Note Hospital Authored Date: Patient: ??JEFFERY, LINDSEY ? Age:??22 Years?Sex:??Female?:??2000?? LMP/EGA/ASTRID Gestational Age (EGA) and ASTRID? * Note: EGA calculated as of 08/13/2022 ?? ASTRID:??08/17/2022?EGA*:??39 weeks 3 days ? History?(0,0,0,0)?Method:??Last Menstrual Period??(11/10/2021) Subjective In to see patient at change of shift. She is complaining of rectal pressure. She states it has beenthere for some time. OB Assessment Baby A Baseline:150 Baseline Description:Normal, 110-160 bpm Baseline Variability:Moderate variability Accelerations:Present Deceleration:None Activity:Present Uterine Number of Contractions per 10 minutes5 Monitor Mode, UterineInternal Physical Exam Vitals & Measurements T:??98.2?F ?? HR:??115(Monitored)?? UT:??98?? RR:??19?? BP:??122/73?? SpO2:??100%?? HT:??165??cm?? WT:??140??kg?? BMI:??51.42?? Assessment/Plan Assessment:??22 yo @ 39w2d gestation admitted for IOL in the setting of the [facility] study. GBS positive. Moderate risk PPH (BMI 51). ?? Latent labor.??Continue Pitocin. PCN for GBS prophylaxis.??Cat I tracing. ?? Encounter for induction of labor (Z34.90):? - Induction plan: S/p Miso x3, 60cc dozier. Continue pitocin - Pain control: stadol - CEFM - PPH risk: Moderate (BMI) - Re-eval in 2 hrs or prn ?? Obesity in (O99.210):? BMI 51 ALFR[facility]O IOL ?? Positive GBS test (B95.1):? - PCN per protocol ?? Uses Beninese as primary spoken language (Z78.9):? - Patient speaks [place] Islander well but desires a per diem interpreter ?? OB History History?(0,0,0,0)?No previous pregnancies history have been recorded Active Problem List Active Problem List Anemia in : (Medical) History of UTI: (Medical) Obesity during : (Medical) : (Obstetric) (11/10/21) : (Medical) Severe obesity: (Medical) Uses Beninese as primary spoken language: (Medical) Medications Medications (7) Active SCHEDULED: (3) Butorphanol ??Inj (Stadol Inj) ??1 mg, IV Push Slowly, Once Butorphanol ??Inj (Stadol Inj) ??1 mg, Intramuscular, Once Penicillin G Potassium 3 Million Units / 50 mL D5%W (Penicillin G POT IVPB) ??3 million_units 50 mL, IVPB, Every 4 hours CONTINUOUS: (2) Lactated Ringers (1000 mL) Cont IV 1,000 mL (Lactated Ringers 1,000 mL) ??1,000 mL, IV Infusion, 125 mL/hr Oxytocin 30 units / 500 mL IV Premix 30 units (Oxytocin 30 units in 500 mL Premix IV 30 units) ??30units 500 mL, IV Infusion, 2 mL/hr PRN: (2) Acetaminophen 325 mg Tablet (Tylenol 325 mg oral tablet) ??975 mg, By Mouth, Every 6 hours Calcium Carbonate 500 mg (Calcium 200 mg) Chewable Tablet (Tums 500 mg Tablet) ??1,000 mg 2 tablet,Chew, 3 times a day Note * Liz Greene RN: PERFORM Event Display: Discharge/Transfer Note Hospital Authored Date: [id number] Nursing Discharge Note Entered On: 08/15/2022 15:50 EST Performed On: 08/15/2022 15:30 EST by Liz Greene RN Nursing Discharge Note 2 Discharge Time : 08/15/2022 15:30 EST Discharge Level of Care at Discharge : Home/Jail/Foster Care Patient Left Unit Via : Ambulatory Patient Accompanied Off Unit with : Responsible adult DC Instructions Provided & Signed by Pt : Yes Patient Understands D/C Instructions : Yes Patient Instructions Discharge Signed : Yes Did Pt have Specialty Bed or Wound Vac : No Liz Greene RN - 08/15/2022 15:50 EST * Sarah Portillo MD: PERFORM Event Display: Discharge/Transfer Note Hospital Authored Date: [id number] Patient: ??GIL, FEAFELD ? Age:??22 Years?Sex:??Female?:??2000?? Admit Date Admission Date: 08/12/2022 Discharge Date 08/15 OB Reason for Admission OB Reason for Admission Reason for admission: Induction of labor Reason for Induction: Elective Method of Induction: Cervical Dozier Inpatient, Misoprostol, Pitocin OBN Hospital Course Feafeld??is a??22??yo @??39w2d gestation??admitted??for??IOL in the setting of the [facility] study.She had a vaginal delivery complicated by a 2 minute shoulder dystocia resolved with delivery of the posterior arm. She was diagnosed with gestational HTN prior to delivery, HELLP labs WNL. Normotensive post- and meeting appropriate milestones on day of discharge. ?? Objective/Physical Exam on Day of Discharge Vitals & Measurements T:??98.4?F ?? HR:??102(Monitored)?? UT:??105?? RR:??18?? RR:??18?? BP:??118/65?? BP:??114/64(Line)?? SpO2:??99%?? HT:??165??cm?? WT:??4.046??kg?? BMI:??51.42?? General: Pleasant, cooperative,??laying comfortably in bed, well appearing, in no acute distress. CV: Regular rate and rhythm, no murmurs. Pulm: Clear to auscultation bilaterally, equal bilaterally, no use of accessory muscles,??no wheezing, rales,??or crackles. Abd: Soft, appropriately tender, fundus firm, below umbilicus. Medical Technologist Blood Bank: Minimal spotting on peripad. Laceration repair intact. Psych: Appropriate mood and affect. Answering questions appropriately. Ext: Non-tender, non-edematous. Assessment/Plan/Discharge Diagnosis Assessment:??Patient is a 22??yo G1 now P1001 who is PPD2 from a vaginal delivery complicated by a 2 minute shoulder dystocia resolved with delivery of the posterior arm. She desires Nexplanon for control prior to discharge. She has been normotensive in the post- meeting, HELLP labs WNLand meeting appropriate milestones for discharge today. ?? Gestational hypertension (O13.9):? - HELLP labs WNL - BP normotensive post- - (x) baby scripts on discharge ?? Uses Beninese as primary spoken language (Z78.9):? - Converses well in [place] Islander without per diem interpreter - Uses per diem interpreter for medical decision making ?? Care: monitoring for hypertension Future Appointments 2022 3:20 PM EST ?? With: Ernesto Lerma MD, [place] Where: [facility] - Medical Technologist Blood Bank [address] [place] [address]- Delivery Summary Delivery Summary Maternal Information ??Labor Information ?Baby A ?Labor Onset Methods: ??Induced ?Induction Methods: ??Amniotomy, Cervical Dozier Inpatient, Misoprostol, Pitocin ??Delivery Information ?Gestational Age at Delivery: ??39W 3D ?Obstetrical Laceration: ??Perineal laceration ?Perineal Laceration: ??1st degree ?Perineal Laceration Repair: ??Vicryl suture ?Anesthesia for Repair: ??Local ?Delivery Complications: ??None ?Blood Loss(ml): ??400 mL ? Baby A ??Delivery Information ?Delivery Type: ??Vaginal ?Date, Time of : ??08/13/22 23:31:00 ? Position: ??Supine ?Foot of bed removed: ??Yes ?Delayed Cord Clamping: ??No ?Reason for No Delayed Cord Clamping: ??to warmer for NICU evaluation ?Placenta Delivery Date/Time: ??08/13/22 23:41:00 ?Placenta Delivery Method: ??Assisted ?Placenta Appearance: ??Normal ?Placenta to Pathology: ??No ??Care Team ?Attending Provider: ??Kishan Malhotra MD ?Delivery Physician: ??Freedom AYALA, Ashlyn ?Human Resources Intern Provider #1: ??Abimbola Nunez MD ?telephony engineer #1: ??Luis Sharma RN ?telephony engineer #2: ??Shell Parry RN ?Other Delivery Clinicians: ??GABRIELE Piña ? Beatrice Mendoza RN ?Time NICU Team Called: ??08/13/22 23:31:00 ??Labor Information ?ROM Date, Time: ??08/13/22 15:39:00 ?ROM to Delivery Total Time: ??472 min ? monitoring: ?? spiral electrode ?? Information ? Outcome: ??Live ? Position: ??Occiput anterior ? Weight: ??4.046 kg ? Score 1 minute: ??6 ? Score 5 minute: ??8 ? Score 10 minute: ??9 ?Transferred To: ?? Care area with Family ?Umbilical Cord Description: ??3 vessel cord ?Cord Blood pH drawn: ??Arterial, Venous ? Complications: ??None ?Head to Body Time, Shoulder Dystocia: ??2 minutes ?Gender: ??Male ? Procedures Performed Vaginal delivery ? Discharge Medications ???Ferrous Sulfate (ferrous sulfate 325 mg oral tablet)???Multivitamin, ( Multivitamins with Folic Acid 1 mg oral tablet) Stop taking these medications ???Aspirin (aspirin 81 mg oral tablet, chewable) Immunizations during Hospitalization Vaccine Date Statustetanus/diphtheria/pertussis, acel(Tdap) 05/29/2022 Given influenza virus vaccine, inactivated 05/29/2022 Given SARS-CoV-2 mRNA ([id number]) vax 11/06/2021 Recorded SARS-CoV-2 (COVID-19) mRNA-1273 vaccine 11/22/2020 Recorded SARS-CoV-2 (COVID-19) mRNA-1273 vaccine 10/26/2020 Recorded Contraception Nexplanon ? Infant Feeding Method Feeding Method: , Formula (08/14/22 02:32:00) Patient Instructions Discharge: Home, Call your the office with any concerns including:?? Heavy vaginal bleeding?? Fever of 100.4 or greater Foul-smelling vaginal discharge Difficulty or burning with urination?? Nausea and vomiting with inability to tolerate food,?? Pain not controlled by your prescribed medications Shortness of breath or chest pain. Swelling of the extremities. ?? General Instructions: - Avoid lifting anything 15 lbs or greater until cleared by doctor. - Stairs are OK but avoid multiple trips/ skipping steps and go slowly. - Walk as often as you are able. - Do not put anything in the vagina. No intercourse, tampons, or douching - Continue your stool softeners (examples: colace/docusate, senna, miralax) - Shower as usual. Avoid tubs/ soaking/ pools. * Huyen Choudhary CNM: PERFORM Event Display: Discharge/Transfer Note Hospital Authored Date: This note was completed with the aid of a resident, I personally performed all components of the visit including the history of present illness, examination and medical decision making. The note has been verified for accuracy and re- documented as needed.?? * Liz Greene RN: PERFORM Event Display: Patient Education/Instruction Authored Date: Inpatient Adult Discharge Instructions [address] [address] Name: LINDSEY GIL : 2000 Visit: 08/12/2022 08:18:00 Current Date: 08/15/2022 10:15 Account: [id number] Inpatient Adult Discharge Instructions We would like to thank you for allowing us to assist you with your healthcare needs. The following includes patient education materials and information regarding your injury/illness. Our entire staffstrives to provide an excellent experience for our patients and their families. PLEASE ENSURE YOU FOLLOW-UP PER THE INSTRUCTIONS BELOW! ?? YOUR OPINION IS IMPORTANT TO US! Please complete the survey you may receive by mail or email. Your feedback will be used to make improvements to the healthcare experiences of our patients and their families. Surveys are administered by [employer] ?? If further treatment with your primary care physician or another doctor is recommended, it is important for you to keep the appointment. Call your primary care physician or return to the Emergency Department immediately if your condition worsens, fails to improve, or new symptoms develop. If you need to find a doctor, you can call [facility] [employer] for a referral at [phone] or toll free at [phone] ([phone] or log in to [email or web address].. ?? You can view and manage your care through the patient portal or by using a health care corey of your choosing. [employer] is a website that allows you to securely view your medical information including your hospital discharge summary, office visit summaries, medications and follow-up visits. You can also request appointments, renew medications, and request access to your medical information using a health care corey of your choosing, or just ask a question. You can enroll at [email or web address] or register during your next office visit. You have been discharged from [facility], Patient Care Unit: [facility]. If you have any questions regarding these instructions after you leave, please call us and we will be happy to assist you. [facility] Your Care Team Attending Physician Roscoe LEOS, Kishan; Brooke Patel MD Discharging Providers Lindsey LEOS, Sarah Reason for Admission Induction of labor Your Diagnosis Encounter for induction of labor Obesity in Anemia in Positive GBS test Uses Beninese as primary spoken language care following vaginal delivery Gestational HTN Gestational hypertension Tests Performed Below is a partial list of the tests performed during your hospitalization. You may have had other tests and procedures not included in this list. Please discuss all test results with your provider. ALT AST CBC Cord Blood Gas Creatinine Type and Screen Primary Care Provider Omega LEOS, Roopa Advance Directive Health Care Proxy on File Yes - Health Care Proxy No qualifying data available. Discharge Vitals Temperature: 98.4 DegF Height: 165 cm Pulse Rate:??105 bpm??High Weight: 140 kg Respiratory Rate: 18 br/min Body Mass Index:??51.42 kg/m2??Critical Respiratory Rate: 18 br/min Body surface area: 2.53 Systolic Blood Pressure: 118 mm Hg ?? Diastolic Blood Pressure: 65 mm Hg ?? Oxygen Saturation: 99 % ?? Studies Pending All tests and labs ordered during this hospital stay have been completed unless listed below. Please discuss all pending results with your provider listed above in these instructions. ?? COVID-19 (2019 Novel Coronavirus) PCR What to do next Instructions From Your Doctor Discharge: Home, Call your the office with any concerns including:?? Heavy vaginal bleeding?? Fever of 100.4 or greater Foul-smelling vaginal discharge Difficulty or burning with urination?? Nausea and vomiting with inability to tolerate food,?? Pain not controlled by your prescribed medications Shortness of breath or chest pain. Swelling of the extremities. ?? General Instructions: - Avoid lifting anything 15 lbs or greater until cleared by doctor. - Stairs are OK but avoid multiple trips/ skipping steps and go slowly. - Walk as often as you are able. - Do not put anything in the vagina. No intercourse, tampons, or douching - Continue your stool softeners (examples: colace/docusate, senna, miralax) - Shower as usual. Avoid tubs/ soaking/ pools. Discharge Orders Instructions from your Care Team Instrucciones de cuido de sofia para la nueva julio cesar?? y el beb?? [Discharge Care Instructions for the New Mom and Baby] [place] un momento para leer estas instrucciones ??tiles antes de salir del hospital.?? Suggs enfermera responder?? cualquier pregunta que pueda tener con mucho gusto.?? Tambi??n puede encontrar esta y m??s informaci??n en el folleto p??rpura Formando demond eduardo, la Gu??a de nuevos comienzos de [facility] la Gu??a para servicios de consulta de lactancia, entregados a usted despu??s del nacimiento de suggs beb??.?? Tambi??n puede llamar a nuestras estaciones de enfermeras si tiene m??s preguntas.?? Fay Women???s:?? Primer piso ([phone]), radha piso ([phone]).?? Llame a suggs m??dico si tiene cualquier pregunta o preocupaci??n antes de suggs pr??xima anh. Para recibir ayuda continua, por favor luis alberto clic a ???Me gusta?? en nuestra p??erica ???[facility]???s [employer]?? en Facebook y [place] [employer]??base a nuestro bolet??n de noticias por correo electr??nicoannabelle [email or web address].?? Se le enviar??n noticias e informaci??n hasta que suggs beb?? cumpla joan a??os. Instrucciones para la nueva madre [Instructions for the New Mother] Actividad: [Activity:] Raghavendra las pr??ximas 2 semanas en casa - no levante objetos pesados, evite subir escaleras innecesariamente y no conduzca (especialmente si est?? tomando medicamentos que le puedan causar evelio??o o siente que no dinero dormido lo suficiente).?? Raghavendra las pr??ximas 4 a 6 semanas - no utilice tampones, no se luis alberto irrigaci??n vaginal, no tengarelaciones sexuales. Use suggs botella perineal para enjuagar suggs perineo hasta que se detenga suggs flujo vaginal.?? Si tiene puntos de sutura en suggs trasero, generalmente se disuelven en 7 o 10 d??as.?? Apl??quese Tucks o pa??os de hamamelis hasta que el dolor haya pasado.?? Use el ba??o en casa cada 3 a 4 horas, enju??guesey cambie ct toallas sanitarias. Las duchas tibias se sienten muy yinka para los m??sculos, espaldas y traseros adoloridos. Ejercicio: [Exercise:] Caminar es la mejor forma de ejercicio.?? Espere hasta suggs anh de seguimiento con suggs m??dico de 4 a6 semanas antes de participar en actividades m??s extenuantes. Dieta: [Diet:] Rosenda suficientes l??quidos para evitar el estre??imiento y ayudar a suggs recuperaci??n. Coma suficientes alimentos ricos en balbina brian la carne timbo, cereales enriquecidos con balbina brian Total y Cream of Wheat, pasas, ciruelas, hojas verdes y espinacas.?? Estos le ayudar??n a subir surecuento sangu??seb ya que todas las mujeres pierden algo de madeline despu??s del parto.?? Tambi??n,a??ada alimentos ricos en vitamina C brian las fresas, chinas/naranjas, papayas, col rizada y pimientos. Contin??e tomando ct vitaminas prenatales si est?? amamantando.?? Si no est?? amamantando, siga las instrucciones de suggs m??dico.?? Si le recetaron suplementos de balbina brian sulfato de balbina, es importante continuar usando estos hasta que suggs m??dico o partera le indique que pare. ?? Cuidado de los senos para madres lactantes [Breast Care for Nursing Mothers:] Use un sost??n de maternidad c??modo y firme.?? No se recomienda un sost??n con aros. Extraiga gotas de leche materna y p??selas sobre ct pezones y areola (stephon jerod??n) antes y despu??s de cada alimentaci??n para proteger y sanar la piel sensitiva y despu??s, seque ct pezones al aire.?? Si est?? sintiendo alg??n dolor, puede comprar cremas para el pez??n brian [employer] o [employer].?? Util??jame de la siguiente manera: termine suggs sesi??n de alimentaci??n o bombeo, extr??igase elcalostro sobre suggs pez??n y d??jelo secar al aire. Aplique la crema al pez??n y areola.?? Util??celaen foster??as cantidades para obtener mejores resultados. Si est?? teniendo dificultad para lograr que el beb?? se pegue al seno debido a la hinchaz??n de laareola, intente aplicar presi??n con ct dedos por un par de minutos por encima y por debajo del pez??n y, mueva tc dedos hacia afuera, ablandando el ??darcy y empujando la hinchaz??n hacia afuera.?? Esta t??cnica es conocida brian ablandamiento de presi??n inversa.?? Para demostraciones de esta y otras t??cnicas brian la t??cnica de Expresi??n de mano de [place] (???[place] Hand Expression?? ), por favor refi??rase a la secci??n de recursos de la Gu??a de servicios de consulta de lactancia materna que recibi?? de parte de los servicios de lactancia. Puede que experimente congesti??n la primera vez que llegue suggs leche, generalmente entre 3 a 5 d??as despu??s del parto.?? Ct senos pueden volverse sensibles e hinchados.?? Las compresas fr??as funcionan muy yinka para ayudar con las molestias y reducir la hinchaz??n. Mejorar?? en un par de d??as.?? Contin??e amamantando a suggs beb?? frecuentemente.?? Llame al Servicio de consulta de lactancia materna del [facility] m??dico de [facility] al [phone], oprima 1 para programar demond anh ambulatoria u oprima 3 y demond consultora le devolver?? suggs llamada perry mismo d??a o al siguiente si llama despu??s de las 3 p. m. Cuidado de los senos para madres que alimentan con biber??n [Breast Care for Bottle Feeding Mothers:] Puede ocurrir congesti??n raghavendra la primera semana postparto.?? Ct senos pueden volverse duros y muy sensibles.?? Demond compresa fresca de hojas de col tanner, crudas y limpias aplicada a los senos y cambiada seg??n las hojas se marchitan dinero demostrado ser ??til para muchas mujeres.?? Las bolsas de hielo o bolsas de guisantes congelados tambi??n trabajan yinka para aliviar las molestias.?? La sensibilidad solo durar?? un par de d??as. Mant??ngase de espaldas hacia el agua mientras se ducha para reducir la estimulaci??n de los senos. Utilice un sost??n ajustado, por ejemplo, un sost??n deportivo. ?? M??todos anticonceptivos: [ Control:] Suggs doctor o partera conversar?? con usted sobre m??todos anticonceptivos cuando sea katelynn de sofia del hospital o en suggs chequeo postparto.?? Aseg??rese de dejarle saber a suggs m??dico si est?? amamantando. Se le coloc?? un dispositivo intrauterino (IUD, por suggs sigla en ingl??s) Paragard el .?? Ellie m??todo anticonceptivo es efectivo por 10 a??os. Se le coloc?? un Nexplanon el 08/15/22 .?? Ellie m??todo anticonceptivo es efectivo hasta por 3 a??os. Manejo del dolor: [Pain Management:] Los calambres despu??s del parto son comunes y aumentan en fuerza con cada beb?? que tenga.?? Si siente calambres dolorosos y no es al??rgica al acetaminofeno (Tylenol) o ibuprofeno (Motrin), puede continuar tomando estos medicamentos brian lo hizo en el hospital.?? El ibuprofeno tambi??n ayuda con los estefania de espalda despu??s de las anestesias epidurales, los estefania perineales despu??s de un parto vaginal y estefania moderados en la incisi??n despu??s de demond crow??darcy o cirug??a de ligadura detrompas.?? Si siente distensi??n de gases, especialmente despu??s de demond cirug??a, puede mike un medicamento sin receta llamado simeticona.? T??mese estas tabletas masticables 4 veces al d??a seg??n sea necesario e indicado en las instrucciones.?? Siga movi??ndose.?? Caminar o mecerse en edmond silla ayudar?? a pasar el gas.? T?? de jengibre hecho con soco samson calentado (en vez de agua) y demond bolsa det??, agitado para disolver la carbonataci??n (burbujas) es demond bebida ??til para aliviar un est??hector gaseoso. Se??ales de advertencia de un problema que debe notificar a suggs doctor o partera: [Warning Signs of a Problem to Notify Your Doctor or Respite Care Provider of:] Sangrado vaginal abundante ??? es cuando empapa demond toalla sanitaria cada hora con madeline timbo brillante. Co??gulos de sangres del leatha??o de un huevo o mayores. Demond incisi??n que no perla. Demond temperatura mayor o igual al 100.4 ??F (38 ??C), especialmente si est?? acompa??ada por cualquiera de los siguientes s??ntomas ??? dolor al orinar, orina frecuente; dolor rylan de espalda o del costado, dolor en el abdomen bajo con un mal olor del flujo vaginal, demond stephon timbo, dura y caliente en suggs seno.?? Dolor de john rylan que no desaparece despu??s de mike acetaminofeno o ibuprofeno.?? Un dolor de john que cambia suggs vista, esto incluye el dg manchas o borroso. Dolor al lado derecho de la parte superior del abdomen a lo jackie de la caja tor??cica. Dolor en ct piernas que es c??lido y sensible al tacto. Los s??ntomas de la depresi??n postparto pueden incluir ??? perdida de inter??s en suggs beb??, sentirse propensa al llanto, dificultad para concentrarse, p??rdida de peso sin apetito, agotamiento, sentirse abrumada o ansiosa, desesperaci??n, pensamientos de lastimarse a usted misma o suggs beb??.?? Estos s??ntomas son importantes y deben ser discutidos con suggs doctor o partera. La depresi??n postparto puede desarrollarse con el tiempo y necesita atenci??n m??dica inmediata.?? No sufra en silencio.?? Tanto en el folleto de Formando demond eduardo brian en la Gu??a de nuevos comienzos de [facility] hay unaherramienta de detecci??n utilizada para identificar a las mujeres en riesgo, llamada la Escala de [place]go, la cual usted ya candelario?? en la oficina antes del parto y otra vez raghavendra suggs estad??a en elhospital.?? Verifique con suggs m??dico de joan a cuatro semanas despu??s de suggs parto y antes de suggs anh de postparto, tome esta prueba y comparta ct resultados con suggs m??dico.?? Aseg??rese de mencionar cualquier puntuaci??n de 10 o m??s.?? Muchas mujeres e incluso, algunas parejas, pueden sentir la tristeza del beb?? o ???baby blues?? .?? [place] es un estado de sentimientos abrumadores y de llanto.? Molestias por el parto, cambios hormonales, cansancio, cambios a suggs cuerpo y estilo de pierre son algunas de las cosas que contribuyen a las altas y bajas a las cuales se enfrentan los nuevos padres.?? No tenga miedo en pedirle ayuda a suggs shilo, eduardo o amigos en la casa para poder descansar o tener algunos minutos para usted.?? Los???blues?? pasar??n r??pidamente. Seguridad personal: [Personal Safety:] Toda persona tiene derecho a sentirse chris en suggs casa y a vivir tona de da??os f??sicos o emocionales.?? Si dinero sufrido abuso f??sico o mental en suggs casa, no est?? khadra.?? Hay ayuda.?? Por favor llame a la l??marisel de ayuda al o al programa [facility] al [phone]. CUIDADO PARA EL RECI??N NACIDO Scheduled Follow-Up Appointments 2022 3:20 PM EST ?? With: Osmel Gaffney MD Where: [facility] [address] [place] [address]- Discharge Medications LINDSEY GIL :2000 Visit Date:08/12/2022 Medications: Please continue your medications until treatment is completed or stopped by your provider. Medications not listed below should be discontinued. Discuss any questions related to medications with your provider. What How Much When Instructions Next Dose Unchanged Ferrous Sulfate (ferrous sulfate 325 mg oral tablet) 1 tab(s) Oral Daily 08/15 Unchanged Multivitamin, ( Multivitamins with Folic Acid 1 mg oral tablet) 1 tab(s) Oral Daily 08/15 ?? What How Much When Why Comments Stop Taking Aspirin (aspirin 81 mg oral tablet, chewable) 2 tab(s) Oral Daily at Bedtime start at 12weeks until 2 weeks ?? Test Results Below is a partial list of the most recent Laboratory test results done prior to this discharge. You may have had other tests and procedures not included in this list. Please discuss all test resultswith your provider. ALT (08/14/2022) ???ALT (SGPT) - 20 units/L AST (08/14/2022) ???AST (SGOT) - 37 units/L CBC (08/14/2022) ???WBC - 13.6 k/mm3???RBC - 4.08 m/mm3???Hgb - 11.1 Gm/dL???Hct - 34.8 %???MCV - 85.3 femtoliters???MCH - 27.2 pg???MCHC - 31.9 g/dL???Platelet Count - 274 k/mm3???RDW-SD - 43.3 femtoliters???MPV - 10.6 femtoliters???Nucleated RBC (Automated) - 0.0 #/100 WBC'S???Abs. NRBC - 0.0 k/mm3 Cord Blood Gas (08/13/2022) ???pH - 7.21???pCO2 - 58 mm Hg???pO2 - 26 mm Hg???Bicarbonate, Estimated - 22 mmol/L???Specimen Type - Blood Gas - ARTERIAL Creatinine (08/14/2022) ???Creatinine-Blood - 0.5 mg/dL???Estimated GFR Creatinine - 139 ML/MIN/1.73 M2 Type and Screen (08/12/2022) ???Blood Type - O Positive???Antibody Screen - Negative Allergies (NKA means No Known Allergies) NKA Problems Active Problems??(3) ?? Severe obesity?? Uses Beninese as primary spoken language?? Education Materials Below is the list of Educational Leaflet Providered with your Discharge Instructions. Valuables and Belongings I fully understand and agree that [facility] accepts no responsibility for all my personal property including clothing, toilet articles, radios, jewelry, dentures, hearing aids, rings, money, or any other property that is in my possession or is brought to me after admission. I understand certain valuables may be placed in a hospital safe for a short period of time. I understand that the hospital is not liable for loss or damage due to accident, fire, or other natural occurrence while said property is in the safe. I accept full responsibility for any personal property that I keep with me, and will not hold the hospital responsible in case of loss or disappearance. I acknowledge that i have been encouraged to send valuables and belongings home. ?? No Valuables/Belongings: No valuables/belongings present Date for Pt to Sign Valuables/Belongings: 08/12/22 09:03:00 ?? Other Discharge Information ? Pulmonary Rehab Status?? Pulmonary Rehab Discharge Status?? Respiratory Rate: 18 br/min Respiratory Rate: 18 br/min ? Common Emergency Awareness Tips IS IT A STROKE? Act FAST and Check for these signs: FACE Does the face look uneven? ARM Does one arm drift down? SPEECH Does their speech sound strange? TIME Call at any sign of stroke ?? Heart Attack Signs Chest discomfort: Most heart attacks involve discomfort in the center of the chest and lasts more than a few minutes, or goes away and comes back. It can feel like uncomfortable pressure, squeezing, fullness or pain. Discomfort in upper body: Symptoms can include pain or discomfort in one or both arms, back, neck, jaw or stomach. Shortness of breath: With or without discomfort. Other signs: Breaking out in a cold sweat, nausea, or lightheaded. Remember, MINUTES DO MATTER. If you experience any of these heart attack warning signs, call to get immediate medical attention! ?? Smoking can increase your chances of developing chronic health problems and can cause harmful effects to other family members in your house. If you smoke, you are strongly encouraged to quit. Please call [facility] [employer] [facility] at [phone] or [phone]; to (do) Centers (8730) or log in to [email or web address] for referrals to smoking cessation programs. ?? The National Suicide Prevention Hotline is available 09/03 if you or someone you know needs to find a reason to keep living. By calling 9-816-430-[employer] (8820) you'll be connected to a skilled, trained counselor at a crisis center in your area. INPATIENT DISCHARGE INSTRUCTIONS SIGNATURE PAGE LINDSEY GIL Location:[facility] Registration Date and Time:08/12/2022 08:18 EST Primary Care Physician: Roopa Duff MD, I LINDSEY GIL, have received the above patient education materials/instructions and have verbalized understanding. If ambulance or transport services are being used I further acknowledge being given a choice of service. ?? If you need to contact me, please call me at this number: . Patient/Supervisor Filtration Name: Patient/Supervisor Filtration Signature: Relationship to Patient: Witness Name/Signature: Date: * Lilibeth Diaz RN: PERFORM Event Display: Care Team Progress Note Authored Date: Patient: ??JEFFERY, LINDSEY ? Age:??22 Years?Sex:??Female?:??2000?? Subjective visit for 22 yo mom, history of Gestational hypertension. Pt has been feeding baby formula 15-20 ml after first latch following delivery. Baby is LGA, poc glucose were normal. Baby fed 20 ml formula at 1230 today, baby not having hunger cues when LC in room. Pt feeding method both breast and formula. Assessment/Plan Attempted latch to left breast in football position, baby + latched for a few sucks, then sleepy. Reviewed deep latch technique with pt Reviewed basic information, gave booklet for contact info. Basic education discussed with??motherincluding:? Positioning infant for optimal feeding Asymmetric latch technique Frequent breast stimulation for initiation and maintenance of milk supply Coming to full milk volume in first 14 days Hand expression taught-no colostrum obtained. When to use a breast pump- pt has pump for home use, unsure which brand it is. Pt reminded to try to latch baby to breast prior to feeding any formula. Consultation reference guide given to mother with contact information for services and ongoing support as needed.? OB Summary : 1 . Baby A - Weight: 4.046 kg Baby A - Date, Time of : 08/13/22 23:31:00 Baby A - Gender: Male Baby A - Complications: None EGA at Documented Date, Time: 39W 3D Weight at Delivery Baby A - Delivery Type: Vaginal Delivery Complications: None OB History History?(0,0,0,0)?No previous pregnancies history have been recorded Active Problem List Active Problem List Anemia in : (Medical) History of UTI: (Medical) Obesity during : (Medical) : (Obstetric) (11/10/21) : (Medical) Severe obesity: (Medical) Uses Beninese as primary spoken language: (Medical) Home Medications Aspirin: 162 mg = 2 tablet, By Mouth, Daily at bedtime, start at 12weeks until 2 weeks Ferrous Sulfate: 325 mg = 1 tablet, By Mouth, Daily Multivitamin, : 1 tablet, By Mouth, Daily Medications Medications (7) Active SCHEDULED: (2) Carboprost 250 mcg/mL Inj (Carboprost Inj) ??250 mcg, Intramuscular, Once Etonogestrel 68 mg Implant (Nexplanon 68mg SQ Implant) ??68 mg 1 each, Intradermal, director call to Procedure CONTINUOUS: (0) PRN: (5) Acetaminophen 325 mg Tablet (Tylenol 325 mg oral tablet) ??975 mg, By Mouth, Every 6 hours Acetaminophen 325 mg Tablet (Acetaminophen Tablet) ??650 mg, By Mouth, Every 4 hours Calcium Carbonate 500 mg (Calcium 200 mg) Chewable Tablet (Tums 500 mg Tablet) ??1,000 mg 2 tablet,Chew, 3 times a day Docusate Sodium 100 mg Capsule (Docusate Sodium Capsule) ??100 mg 1 capsule, By Mouth, 2 times a day Ibuprofen 800 mg Tablet (Ibuprofen Tablet) ??800 mg, By Mouth, Every 8 hours Patient Care team information Care Team Personnel Name: Roopa Duff MD Position: [facility] Resident Member Role: PCP Address: Address: [address] [place] [address]- Name: Liz Greene RN Position: [facility] OB RN Member Role: Patient Care Provider Name: Gillian Beckman Position: [facility] OB RN Member Role: Patient Care Provider Care Team Related Persons Name: LINDSEY GIL Address: [address] Address: home [address] [place] [address] Name: JEFFERY MANSOOR Address: home [address] [place] [address]
--- OUTSIDE RECORDS SUMMARY | 2024-04-21 09:21 | XMS_ITS | Continuity of Care Document ---
Author Organization [facility] Address [address] [place] [address]- Care Team Providers Care Wig Stylist Name Role Phone Roopa Duff MD Primary Care Physician Encounter [facility] [place] Date(s): 06/19/23 - 07/19/23 [facility]/[place] [address]- [place] Allergies, Adverse Reactions, Alerts No Known Allergies Immunizations Given and Recorded Vaccine Date Status Refusal Reason influenza virus vaccine, inactivated 06/11/23 Give n influenza virus vaccine, inactivated 05/29/22 Give n tetanus/diphtheria/pertussis, acel(Tdap) 05/29/22 Given SARS-CoV-2 mRNA (apxhqff-hnmh-prjgg) vax 11/06/21 Recorded SARS-CoV-2 (COVID-19) mRNA-1273 vaccine 11/22/20 R ecorded SARS-CoV-2 (COVID-19) mRNA-1273 vaccine 10/26/20 R ecorded Medications naproxen 375 mg oral tablet 375 mg, 1, tablet, By Mouth, 2 times a day, PRN, with food, # 30 tablet, Refills 0, Tot. Refills 0,Maintenance, Headache, 06/22/23 17:03:00 EST, Route to Pharmacy Electronically, [id number], Partial fill upon patient request if the p... Start Date: 06/22/23 Status: Ordered Nexplanon = 68 mg, Subcutaneous Infusion, Once, 0 Refills, Maintenance, 06/11/23 14:56:00 EDT, Partial fill upon patient request if the prescription is for a schedule II opioid drug. Start Date: 06/11/23 Status: Ordered Problem List Condition Confirmation Course Effective Dates Status H ealth Status Informant Hyperlipidemia Confirmed Active Uses Turkmen as primary spoken language Confirmed Active Prediabetes Confirmed Active Severe obesity Confirmed Active Social History Social History Type Response Tobacco Other: hookah once a month. Sex Female Patient Care team information Care Team Personnel Name: Roopa Duff MD Position: [facility] Resident Member Role: PCP Address: Address: [address] [place] [address]- Care Team Related Persons Name: RADHA PASCAL Address: [address] Address: home [address] [place] [address] [place] Name: MANSOOR GIL Address: home [address] [place] [address]
--- OUTSIDE RECORDS SUMMARY | 2024-04-21 09:21 | XMS_ITS | Continuity of Care Document ---
Author Organization [facility] Address [address] [place] [address]- Care Team Providers Care Head Of Talent Management Name Role Phone Roopa Duff MD Primary Care Physician [phone] [place] [facility] [place] - 04/11/23 [facility]/[place] [address]- Attending Physician: Huyen Montalvo MD Admitting Physician: Huyen Montalvo MD Allergies, Adverse Reactions, Alerts No Known Allergies Immunizations Given and Recorded Vaccine Date Status Refusal Reason tetanus/diphtheria/pertussis, acel(Tdap) 05/29/22 Given influenza virus vaccine, inactivated 05/29/22 Give n SARS-CoV-2 mRNA (dadqzfy-mfmq-orbhn) vax 11/06/21 Recorded SARS-CoV-2 (COVID-19) mRNA-1273 vaccine 11/22/20 R ecorded SARS-CoV-2 (COVID-19) mRNA-1273 vaccine 10/26/20 R ecorded Medications ferrous sulfate 325 mg oral tablet 1 tablet = 325 mg, By Mouth, Daily, # 90 tablet, 6 Refills, Maintenance, 07/11/22 12:28:00 EST, Tablet, [facility] #[id number], Partial fill upon patient request if the prescription is for a schedule II opioid drug., 165, cm, 07/11/22 12:23:00 ES... Start Date: 07/11/22 Status: Ordered Multivitamins with Folic Acid 1 mg oral tablet 1 tablet, By Mouth, Daily, # 90 tablet, 2 Refills, Maintenance, 02/14/22 8:27:00 EDT, Tablet, [facility] #[id number], Partial fill upon patient request if the prescription is for a schedule II opioid drug., 1 tablet By Mouth Daily, 165, cm, 01/29... Start Date: 02/14/22 Status: Ordered Problem List Condition Confirmation Course Effective Dates Status Health St [facility] Informant Uses Citizen Of [place] as primary spoken language Confirmed Active Severe obesity Confirmed Active Social History Social History Type Response Tobacco Other: hookah once a month. Sex Female Patient Care team information Care Team Personnel Name: Roopa Duff MD Position: [facility] Resident Member Role: PCP Address: Address: [address] [place] [address]- Care Team Related Persons Name: RADHA PASCAL Address: [address] Address: home [address] [place] [address] Name: MANSOOR GIL Address: home [address] [place] [address]
--- OUTSIDE RECORDS SUMMARY | 2024-04-21 09:21 | XMS_ITS | Continuity of Care Document ---
Author Organization [facility] Address [address] [place] [address]- Care Team Providers Care Jingle Writer Name Role Phone Haleigh LEOS, Evelio Maguire Primary Care Physicia n Encounter [facility] Date(s): 05/23/20 - 06/22/20 [facility] De Samantha [address] [place] [address]- Allergies, Adverse Reactions, Alerts Substance Reaction Severity Status NKA Active Social History Social History Type Response Smoking Status Never smoker entered on: 12/01/14 Sex
--- OUTSIDE RECORDS SUMMARY | 2024-04-21 09:21 | XMS_ITS | Continuity of Care Document ---
Author Organization [facility] Address [address] [place] [address]- Care Team Providers Care Local Driver Name Role Phone Not on Staff, PCP Primary Care Physician Unavail able [place] [facility] [place]17[place] - 12/17/[address] [address]- Discharge Disposition: Transferred to short-term general hospit Attending Physician: Kieran Mejia MD Admitting Physician: Kieran Mejia MD Referring Physician: Not on Staff, Referring MD Allergies, Adverse Reactions, Alerts No Known Allergies Vital Signs Most recent to oldest [Reference Range]: 1 2 3 Oxygen Saturation [94-100 %] 99 % (12/17/21 10:17 PM) 100 % (12/17/21 8:17 PM) 100 % (12/17/21 6:14 PM) Pulse Rate [55-90 bpm] 86 bpm (12/17/21 10:17 PM) 87 bpm (12/17/21 8:17 PM) 95 bpm *H* (12/17/21 6:14 PM) Blood Pressure [90-138/55-84 mm Hg] 102/50mm Hg (12/17/21 10:17 PM) 114/58mm Hg (12/17/21 8:17 PM) 112/57mm Hg (12/17/21 6:14 PM) Respiratory Rate [16-30 br/min] 18 br/min (12/17/21 10:17 PM) 17 br/min (12/17/21 8:17 PM) 16 br/min (12/17/21 6:14 PM) Temperature [96.8-100.4 DegF] 98.4 DegF (12/17/21 10:17 PM) 98.6 DegF (12/17/21 8:17 PM) 98.6 DegF (12/17/21 6:14 PM) Mode of Delivery (Oxygen) Room air (12/17/21 10:17 PM) Room air (12/17/21 8:17 PM) Room air (12/17/21 6:09 PM) Blood pressure sites Arm, left (12/17/21 10:17 PM) Arm, left (12/17/21 8:17 PM) Temperature Route Oral (12/17/21 10:17 PM) Oral (12/17/21 8:17 PM) Oral (12/17/21 6:14 PM) Social History Social History Type Response Smoking Status Never smoker entered on: 12/01/14 Sex
--- OUTSIDE RECORDS SUMMARY | 2024-04-21 09:21 | XMS_ITS | Continuity of Care Document ---
Author Organization [facility] Address [address] [place] [address]- Care Team Providers Care Hr Assistant Name Role Phone Roopa Duff MD Primary Care Physician [place] [facility] [place] 06/17/23 - 07/17/23 [facility]/[place] [address]- [place] Allergies, Adverse Reactions, Alerts No Known Allergies Immunizations Given and Recorded Vaccine Date Status Refusal Reason influenza virus vaccine, inactivated 06/11/23 Give n influenza virus vaccine, inactivated 05/29/22 Give n tetanus/diphtheria/pertussis, acel(Tdap) 05/29/22 Given SARS-CoV-2 mRNA (maeruxn-kksg-uozdn) vax 11/06/21 Recorded SARS-CoV-2 (COVID-19) mRNA-1273 vaccine 11/22/20 R ecorded SARS-CoV-2 (COVID-19) mRNA-1273 vaccine 10/26/20 R ecorded Medications naproxen 375 mg oral tablet 375 mg, 1, tablet, By Mouth, 2 times a day, PRN, with food, # 30 tablet, Refills 0, Tot. Refills 0,Maintenance, Headache, 06/22/23 17:03:00 EST, Route to Pharmacy Electronically, [facility] #[id number], Partial fill upon patient request if the [...] Team Personnel Name: Roopa Duff MD Position: [facility] Resident Member Role: PCP Address: Address: [address] [place] [address]- Care Team Related Persons Name: RADHA PASCAL Address: [address] Address: home [address] [place] [address] [place] Name: MANSOOR GIL Address: home [address] [place] [address]
--- OUTSIDE RECORDS SUMMARY | 2024-04-21 09:21 | XMS_ITS | Continuity of Care Document ---
Author Organization [facility] Address Unknown Care Team Providers Care Legal Collector Name Role Phone Roopa Duff MD Primary Care Physician [phone] Encounter [facility] [id number] Date(s): 12/26/21 - 01/25/22 [facility] Attending Physician: Mili Logan Admitting Physician: Mili Logan Referring Physician: Mili Logan Allergies, Adverse Reactions, Alerts No Known Allergies Immunizations Given and Recorded Vaccine Date Status Refusal Reason SARS-CoV-2 mRNA (xghxqly-qafs-vfdgo) vax 11/06/21 Recorded SARS-CoV-2 (COVID-19) mRNA-1273 vaccine 11/22/20 R ecorded SARS-CoV-2 (COVID-19) mRNA-1273 vaccine 10/26/20 R ecorded Medications Multivitamins with Vitamin B Complex, Vitamin C, Minerals and L- Methylfolate oral capsule 1 capsule, By Mouth, Daily, # 90 capsule, 0 Refills, Maintenance, 12/26/21 11:29:00 EDT, Capsule, [facility] #[id number], Partial fill upon patient request if the prescription is for a schedule II opioid drug., 1 capsule By Mouth Daily, 165, cm,... Start Date: 12/26/21 Status: Ordered Tylenol Extra Strength 500 mg oral tablet 2 tablet = 1,000 mg, By Mouth, Every 6 hours, PRN as needed for fever, # 50 tablet, 0 Refills, Maintenance, 12/30/21 23:17:00 EDT, Tablet, [facility] #[id number], Partial fill upon patient request if the prescription is for a schedule II opioid d... Start Date: 12/30/21 Status: Ordered Problem List Condition Effective Dates Status Health Status Inform ant Severe obesity(Confirmed) Active Social History Social History Type Response Tobacco Other: hookah once a month. Sex
[2024-04-21 09:32] LABS: UPreg QC Valid YES; Urine Pregnancy NEGATIVE (NEGATIVE)
[2024-04-21] MEDS: Aprepitant 32 MG/4.4 ML VIAL IVPUSH (10:01)
[2024-04-21] MEDS: Lactated Ringers 1,000 ML 999 ML IV (10:01)
--- NOTE | 2024-04-21 10:19 | HO.ANESPROP2 ---
FORM[facility]LY [facility], [facility] Active Problems Active Problems: All Active Problems (Updated 04/12/24 @ 08:45 by Kathy Mitchell RN) Nausea (Acute) H. pylori infection (Acute) Cholelithiasis (Acute) Vitamin B1 deficiency (Acute) Vitamin B12 deficiency (Acute) Vitamin A deficiency (Acute) Vitamin D deficiency (Acute) Anemia (Acute) Hx laparoscopic cholecystectomy (Acute) Morbid obesity (Acute) Past Medical History Medical History Vitamin deficiency Anemia Morbid obesity Family History Family history of problems with anesthesia: No Surgical History Surgical History Hx laparoscopic cholecystectomy History of Problems with Anesthesia: No Social History Social History Are you a primary career and transition teacher to a significant other at home: No Do you presently have visiting nurse or other home services: No Alcohol intake: current Alcohol intake frequency: holidays/special occasions only Patient Tobacco Use Status: Never used Tobacco Use of substances other than those prescribed or required for medical reasons: No Have you been hit, kicked, punched, or otherwise hurt by someone within the past year? If so, by whom?: No Are you DNR?: No Advance Directives Information Provided: Yes (as above noted) Advance Directives on File: No Recently lost weight without trying: No Eating poorly because of decreased appetite: No Nutrition Risks: No Nutritional Risk Patient : No FDLMP: 03/25/24 : No Poor oral hygiene: No Meds Allergies Allergy/AdvReac Type Severity Reaction Status Date / Time No Known Allergies Allergy Verified 04/21/24 09:24 Active Medications: Current Medications Lactated Ringer's (Lr) 1,000 mls @ 999 mls/hr IV .Q1H1M LUIS Stop: 04/21/24 11:15 Last Admin: 04/21/24 10:01 Dose: 999 mls/hr Exam Height,Weight and Vital Signs: Height 5 ft 5 in Weight 123.377 kg Last Vital Signs Temp 96.5 F L 04/21/24 09:30 Pulse 72 04/21/24 09:30 Resp 15 04/21/24 09:30 BP 116/60 04/21/24 09:30 Pulse Ox 98 04/21/24 09:30 O2 Del Method Room Air 04/21/24 09:30 Pertinent Lab Results Pertinent Lab Results: Laboratory Tests 04/11/24 04/21/24 08:44 09:12 Urine Test NEGATIVE Blood Type O Positive Antibody Screen NEGATIVE Airway Mallampati Class: III TM Dist: >3cm Neck ROM: Full Assessment and Plan Assessment Anesthesia Assessment: Anesthesia Plan Discussed and Chart Reviewed Final Anesthetic Review Family History of Problems with Anesthesia: No History of Problems with Anesthesia: No NPO: Yes ASA Class: III Final Preanesthetic Review: No Changes in Pt Med Stat, Meds/Allgs Chart Reviewed, Consent Obtained/Reviewed and Anes Risks/Benef Reviewed Patient Risk: Intermediate Procedure Risk: Intermediate Anesthetic Plan Anesthetic Plan: GA Disposition: Standard PACU
--- NOTE | 2024-04-21 10:56 | P.BOP_ITS ---
Brief Operative Note Date of Service: 04/21/24 Pre-op diagnosis: Morbid obesity with comorbidities (see below) Post-op diagnosis: same Procedure: INITIAL PATIENT BMI ON PRESENTATION AT OUR OFFICE: 52.4 kg/m2 LAST BMI BEFORE SURGERY: 44.9 kg/m2 COMORBIDITIES: GERD, liver steatosis, RBBB ?The patient presented to the Weight Management Program with significant obesity that was negatively impacting the patient's comorbidities as listed above.? The program is a phased program with a special focus on preoperative medical weight management to promote substantial weight loss and prepare the patients for the second phase of the program: bariatric surgery. The patient participated in an intensive weekly lifestyle ?intervention and exercise program during which the patient ?has lost between the initial office visit and the last preoperative visit 50lbs, or 15% of initial actual body weight. It was deemed appropriate for the patient to now have bariatric surgery. In light of the current Covid-19 pandemic and the well documented strong association of obesity and increased risk of worse outcomes if infected with Covid-19 (REFERENCES: https://pubmed.ncbi.nlm.nih.gov/67073912/ ,? https://pubmed.ncbi.nlm.n ih.gov/52058594/ ), any delay in undergoing bariatric surgery may lead to the patient's worsening health condition and increased?risk of more severe Covid-19 disease if infected. In addition a recent?study from [facility] published in [facility] on 08/12/2021 (file:///C:/[email or web address]_ka[facility] [email or web address].pdf) found that, among patients with obesity, substantial weight loss achieved with surgery was associated with improved outcomes of COVID-19 infection. The findings suggest that obesity can be a modifiable risk factor for the severity of COVID-19 infection. In addition, the patient met the BMI-criteria for bariatric surgery based on the BMI on initial presentation. The patient should not be penalized for achieving such weight loss because ?it is not sustainable long-term without surgical intervention and it was achieved in preparation for bariatric surgery ?under my direction and based on my published research (file:///C:/ [email or web address]/[email or web address]/[email or web address]%[email or web address](3).pdf and? https://www.soard.org/article/X2070-2891(99)38572-X/pdf ) ?that a 10% preoperative weight loss improves long-term weight loss after surgery and reduces perioperative complications.? Insurance carriers such as [facility] have endorsed my recommendations ?and have included in their policies criteria to include a 10% preoperative weight loss requirement. PROCEDURE: Esophago-gastroscopy,laparoscopic sleeve gastrectomy and laparoscopic gastropexy INDICATIONS: This is a 24 year-old female who was electively scheduled for laparoscopic, possibly open sleeve gastrectomy. The risks and complications of the procedure were discussed with the patient in advance, particularly the possibility of ; pulmonary embolism; staple line leak; bleeding; GERD; cardiac, pulmonary, or renal complications; as well as long-term problems such as insufficient weight loss, vitamin deficiency, strictures, or ulcers. The patient understood all the risks, and was in agreement to proceed with surgery. DESCRIPTION OF PROCEDURE: After informed consent was obtained from the patient, the patient was given preoperative antibiotics, and was transferred to the operating room. After successful induction of general anesthesia, pneumatic compression devices were placed on both lower extremities. An upper endoscopy was performed next. The oropharynx and esophagus appeared to be within normal limits. There was no diaphragmatic hernia present consistent with the findings of the preoperative upper GI. The stomach was entered. Then after all fluid and air were suctioned and the stomach was fully decompressed, the scope was withdrawn and secured in the mid esophagus. The patient was then prepped and draped in the usual sterile manner, and abdo timothy access was established at the right upper quadrant with the Rina technique. A 12 mm blunt port was inserted, and the abdomen was insufflated with CO2 to a pressure of 15 mmHg. Under direct visualization, additional ports were placed, specifically two 5 mm Versi-step ports to the left upper quadrant, and a 5 mm Versi-Step port to the right upper quadrant. 1% lidocaine plain was used to infiltrate all port sites as well as all fascia defects. Following that, the patient was placed in a steep reverse Trendelenburg position. An additional 5 mm port was placed to the right flank for the Mediflex retractor that was used to retract the left lobe of the liver. The gastro-esophageal fat pad was opened with the ultrasonic device (Thluz mariaerbeat, Olympus) and the anterior esophagus and hiatus were exposed. The angle of His was opened with the ultrasonic device the fundus of the stomach from any diaphragmatic and splenic attachments. I then opened the gastrocolic ligament between the transverse colon and the greater curvature of the stomach with the ultrasonic device to enter the lesser sac and facilitate the ligation of the short gastric vessels. I started at a mid-point along the greater curvature and using the Thunderbeat, all short gastric vessels were divided all the way to the angle of His until the left silvano was completely dissected at its entirety. I then divided the gastro-colic ligament distally to a distance of about 3-4 cm proximal to the pylorus. ? The stomach was then divided transversely with one Endo PRAVEENA-45 purple, one Endo PRAVEENA-60 purple, two PRAVEENA-45 orange loads and two PRAVEENA-60 articulating orange loads using the BioRegener[employer] SciencesIA stapler and [employer] and mNectarON loads. Every effort was made that the gastric sleeve had a tubular shape and an even caliber throughout. Once the sleeve resection was completed, the staple line of the gastric sleeve was reinforced with Hemoclips. The resected stomach was retrieved without difficulty from the Rina port. A gastropexy was then performed in order to prevent postoperative GERD and partial gastric volvulus. Several interrupted 2.0 Surgidac sutures were placed between the sleeve's staple line and the previously divided greater omentum and gastro-colic ligament using the Endo-Stitch device. ?An upper endoscopy was performed. There was no narrowing at the GE junction. The scope was easily advanced all the way to the pylorus which was clearly visualized. There was no narrowing anywhere and the sleeve's caliber was even throughout. The sleeve's staple line was inspected and there was no evidence of ischemia, bleeding or dehiscence. At that point the gastroscope was withdrawn from the patient?s mouth while we were decompressing the bowel and the stomach from any remaining air. I looked into the lesser sac to see how the sleeve was situating and it was situating well. There was no bleeding from the staple line, spleen, or short gastric vessels. The Mediflex retractor was removed, and the undersurface of the liver was inspected and there was no bleeding. The patient was placed in supine position. I closed the fascial defect of the 12 mm port site with a figure of eight #1 Polysorb suture. Then 30cc Ropivacaine plain with 10 mg of Dexamethasone were used to infiltrate the fascial closure as well as all skin incisions. At this point, the abdomen was deflated, all ports were removed under direct vision, and no bleeding was noted from any of the port sites. The skin incisions were irrigated with saline and were closed with 4-0 absorbable monofilament sutures. Steri-Strips and OpSites were used to cover all incisions. The patient was extubated and was transferred in stable condition to the recovery room for further care. I was present and performed all bravo parts of the procedure. Ms. James was the treasury assistant. There were no residents to assist with this case. Eusebio Shane MD, PhD, FACS Surgeon: Peewee Shane MD Anesthesia: GETA, local and other (TAP Block) Was an News Wire Photo Operator used for this Procedure?: No News Wire Photo Operator: Dyan James Estimated blood loss (mL): 10 IV fluids (mL): 3,000 Urine output (mL): 0 (No Han to record output) Pathology: other (Stomach) Condition: stable Disposition: PACU
--- NOTE | 2024-04-21 10:56 | MHC.SHP ---
Pre-Procedural Eval Section A - 24 Hr Update-Section A only Date of Service: 04/21/24 The patient is an INPATIENT: Yes The patient has been examined within 24 hours of the surgical procedure. The History & Physical has been completed within 30 days and I have reviewed it.: Yes Section B - Complete if H&P > 30 days Chief Complaint: Morbid obesity Relevant Family History (Specify if Yes): No Relevant Social History: None Present Medications: None Medical History: No relevant PMH History of Previous Operations: No relevant previous surgery Allergies: Allergies Allergy/AdvReac Type Severity Reaction Status Date / Time No Known Allergies Allergy Verified 04/21/24 09:24 Review of Systems Sugical H&P ROS: Negative: Constitution, Cardiovascular, Respiratory, Neurological, Psychiatric, Hem-Onc, Allergic/Immunologic, Gastrointestinal, Genitourinary, Musculoskeletal, Integumentary, Endocrine and Eyes/Ears/Nose/Throat Exam Surgical H&P Exam: Normal: HEENT, Normal: Heart, Normal: Lungs, Normal: Extremities, Normal: Abdomen, Normal: Skin and Normal: Neurological Plan Diagnosis/Plan: Unchanged I have reviewed the history and physical and performed a pertinent physical examination on my patient. No changes have occurred unless specified. Time Spent With Patient Time: Total time managing care of this patient today ____ minutes.
--- NOTE | 2024-04-21 11:00 | P.PNGS_ITS ---
Subjective Subjective Date of Service: 04/22/24 Interval history: Feels well. Mild incisional pain. She is tolerating phase 1 bariatric diet Physical Exam 2 Vital Signs: Vital Signs: Last Vital Signs Temp 96.5 F L 04/21/24 09:30 Pulse 72 04/21/24 09:30 Resp 15 04/21/24 09:30 BP 116/60 04/21/24 09:30 Pulse Ox 98 04/21/24 09:30 O2 Del Method Room Air 04/21/24 09:30 BMI result Body Mass Index 45.3 GI: Inspection: Yes normal to inspection, Yes incision (clean, dry and intact) and Yes obesity Palpation (GI): Soft to palpation Extrem: Right lower extremity: normal to inspection (no calf tenderness) L eft lower extremity: normal to inspection (no calf tenderness) Objective Data Active Medications Fentanyl (Fentanyl Citrate/Pf 100 Mcg/2 Ml Vial) 50 mcg IVPUSH Q5M PRN PRN Reason: Pain, Moderate to Severe (Pain Scale 4-10) Stop: 04/21/24 16:23 Lactated Ringer's (Lr) 1,000 mls @ 999 mls/hr IV .Q1H1M LUIS Stop: 04/21/24 11:15 Last Admin: 04/21/24 10:01 Dose: 999 mls/hr Documented By: SANDEEP Ondansetron HCl (Ondansetron Hcl 4 Mg/2 Ml Vial) 4 mg IVPUSH ONCE PRN PRN Reason: Nausea and Vomiting Stop: 04/21/24 16:23 Labs 04/22/24 05:20 04/22/24 05:20 Labs: Laboratory Results - last 24 hr 04/21/24 09:12 Urine Test NEGATIVE Procedures Date of Service Date of Service: 04/22/24 Progress Note: A&P Assessment and plan (1) Morbid obesity: Status: Acute Assessment and Plan: s/p laparoscopic sleeve gastrectomy and gastropexy Doing well Will check am labs and if OK the patient will be discharged home (2) GERD (gastroesophageal reflux disease): Status: Acute (3) Steatosis, liver: Status: Acute (4) Cholelithiasis: Status: Acute (5) RBBB: Status: Acute (6) S/P laparoscopic sleeve gastrectomy: Status: Acute Time Spent With Patient Time: Total time managing care of this patient today ____ minutes. Quality Stroke Does the patient have a stroke diagnosis?: No VTE Prior VTE?: No VTE Risk Level:: Surgical - moderate VTE Device Contraindication: N/A - Device Ordered VTE Drug Contraindication: Treatment Not Indicated
--- NOTE | 2024-04-21 13:44 | PM.DS ---
DS: Providers Provider Date of Service: 04/22/24 Date of admission: 04/21/24 09:17 Primary care physician: Reba Chapman DS: Diagnosis Discharge Diagnosis (1) Morbid obesity: Status: Acute (2) GERD (gastroesophageal reflux disease): Status: Acute (3) Steatosis, liver: Status: Acute (4) Cholelithiasis: Status: Acute (5) RBBB: Status: Acute DS: Summary Hospital Course Hospital Course: ADMITTING DIAGNOSIS: morbid obesity,? ? DISCHARGE DIAGNOSIS: same, s/p laparoscopic sleeve gastrectomy and gastropexy ? PAST SURGICAL HISTORY:?lap cholecystectomy ? PROCEDURE: upper endoscopy, laparoscopic sleeve gastrectomy and gastropexy ? DISCHARGE SUMMARY: ? History of Present Illness: ? The patient is a? 24? year-old woman with a BMI of? ?45.3 ? kg/m2 and associated co-morbidities as described above. The patient had extensive work-up,lost? 42 ? lbs preoperatively and was electively scheduled for laparoscopic, possible open sleeve gastrectomy and gastropexy. Risks and complications of the surgery were discussed with the patient in advance, particularly the possibility of , pulmonary embolism, anastomotic leak, bleeding, bowel injury, GERD, cardiac, renal or pulmonary complications. The patient understood all the risks and was in agreement with the surgical plan. ? Hospital Course: ? The patient underwent an uneventful laparoscopic sleeve gastrectomy with gastropexy on the day of admission. Postoperatively, the patient was transferred to the surgical floor. The patient received IV Acetaminophen and IV dilaudid for pain control. Patient was started on bariatric phase 1 diet POD #0. On postoperative day one, the patient was feeling well without nausea, vomiting, fevers, or tachycardia. The patient had some mild incisional pain and the abdomen was soft.? ? On the morning of postoperative day one, the patient was continued on 1 ounce of water or ice every half hour. During the day, the patient did fairly well, having some incisional pain, but able to ambulate adequately and to tolerate liquids well. ? Since the patient is doing well, we decided that the patient was ready to be discharged. The patient was given instructions to follow-up with me next week and to call my office for any fever over 101, persistent abdominal pain, nausea, vomiting, GERD, symptoms of DVT such as calf tenderness, or leg swelling, or pulmonary embolism such as chest pain or shortness of breath.? The patient was also instructed to drink 40-60 ounces of liquids per day using the 1-ounce cups. The patient had been given prescriptions for Tylenol for pain, Zofran prn for nausea, and pantoprazole and carafate previously. The patient was encouraged to ambulate and use the incentive spirometer. The patient was allowed to shower, but no baths, and encouraged to stay active at home. All of these instructions were given to the patient personally. All questions were answered and the patient understood all instructions, the instructions were also given to the patient in print. Time Attestation Discharge Coordination Time (in mins): 30 Quality: Safe Use of Opioids Does Pt have an Active Cancer Diagnosis on the Problem List?: No Quality: Stroke Does the patient have a stroke diagnosis?: No Physical Exam Vital Signs: Vital Signs: Last Vital Signs Temp 96.5 F L 04/21/24 09:30 Pulse 72 04/21/24 09:30 Resp 15 04/21/24 09:30 BP 116/60 04/21/24 09:30 Pulse Ox 98 04/21/24 09:30 O2 Del Method Room Air 04/21/24 09:30 BMI result Body Mass Index 45.3 DS: Data Data Completed and Pending Pending studies at discharge: Pending at discharge 04/21/24 12:38 Surgical [PTH] Routine Labs on day of discharge: Laboratory Results - last 24 hr 04/21/24 09:12 Urine Test NEGATIVE Discharge Plan Discharge Anticipated Discharge Date/Time: 04/22/24 10:00 Patient Disposition: Home, Self-Care Discharge Diagnosis: s/p laparoscopic sleeve gastrectomy Referrals: Reba Chapman [Primary Care Provider] - 1 Week Discharge Medications: Continued pantoprazole 40 mg tablet,delayed release (DR/EC) 40 mg PO DAILY Qty: 90 0RF Discontinued Vitron-C 65 mg iron- 125 mg tablet,delayed release (DR/EC) 1 tab PO DAILY Qty: 90 0RF Rx Instructions: swallow whole; do not chew/break/dissolve/open cholecalciferol (vitamin D3) 125 mcg (5,000 unit) capsule 125 mcg PO DAILY Qty: 90 0RF thiamine HCl (vitamin B1) 100 mg tablet 100 mg PO DAILY Qty: 90 0RF vitamin A palmitate 3,000 mcg (10,000 unit) capsule 10,000 unit PO DAILY Qty: 60 0RF Discharge Orders: Discharge Order (Routine); Ordered 04/22/24 Ordered By: Peewee Shane Activity on Discharge: No heavy lifting Stand Alone Forms: Patient Portal Discharge page Print Language: Indonesian Care Plan Goals: weight loss Health Concerns: morbid obesity Plan of Treatment: No tub baths, sex or returning to work until discussed at first post op appointment. No alcohol, tobacco or illegal drug use. Continue to use incentive spirometer hourly while awake. Walk in home for 5- 10 minutes every 2 hours during the first week. Wear abdominal binder with activity. Follow all meal plan instructions from your bariatric surgeon. Review bariatric handbook and call with any questions. Discharge Instructions 1. Please call your doctor or come back to the emergency room should any new symptoms arise. 2. Activity: abstain from alcohol,? limited stair climbing, no bending, no driving, no exercise, no illicit substances, no lifting, no sex, no tub bath, no work. 4. Diet: follow your bariatric surgeons recommendations for advancing diet. 5. Dressing Change/Wound Care: Your incisions are covered with waterproof dressings. You can shower with these and pat dry. Do not rub over dressings or incisions. If the area is tender, you may apply an ice pack for short intervals (no more than 20 minutes on, followed by at least 20 minutes off). Do not apply heat. Do not use creams, lotions, or topical antibiotics unless instructed to do so by your surgeon. 6. Call your doctor if: - Your temperature exceeds 101.5 F - You experience excessive pain or swelling - You have an unexpected reaction to medication - You have excessive bleeding - You experience continued vomiting/nausea - Your incision begins to separate - Your incision shows signs of infection such as increased redness, swelling, excessive pain, heat, or drainage (light blood or clear fluid is normal) General instructions: No lifting greater than 10 lbs for the next 6 weeks[address] within 24 hours of taking narcotic pain medications. If you do not move your bowels in the next 2 days, please take milk of magnesia over the counter. Please follow the post op diet and do not advance your diet until you are seen in the office in about 2 weeks. Please walk around your home every hour or two to prevent blood clots from forming in your legs. You do not need to wake from sleeping to walk. Please sleep in a bed or couch to prevent kinking at the hips and knees. Please take your incentive spirometer (your lung production illustrator) home with you and use it for the next few days to prevent pneumonias. You may shower, no hot tubs, baths or swimming pools. Please call the office with any questions or concerns such as increasing abdominal pain, fever, chills, shortness of breath, chest pain, leg pain or swelling, or redness or drainage from your incisions. Please make sure you are consuming 40-60 ounces of total fluids per day. Avoid all carbonation. Do not hesitate to contact the office with any questions at . The patient's medical history has been reviewed and they are considered low risk for post op DVT and therefore DVT prophylaxis is not considered necessary. Travel after surgery was reviewed. The patient has not disclosed any travel plans during the first 30 days after surgery and they have been advised that within the first 30 days after surgery any bus, plane, train or car travel over 2 hours in duration is contraindicated due to the possibility of developing blood clots from immobility. Any travel, needs to include periods of ambulation of 10 minutes in duration every 2 hours.? The patient was instructed to discuss any plans for travel during this period with their bariatric surgeon. Assessment: s/p laparoscopic sleeve gastrectomy with gastropexy Discharge Date/Time: 04/22/24 11:22
[2024-04-21 14:18] LABS: Hematocrit 34.8 % (37.0-47.0); Hemoglobin 11.7 g/dl (12.0-16.0)
[2024-04-21 14:33] LABS: Anion Gap 14 (12-20); Blood Urea Nitrogen 7 mg/dL (9-16); Calcium 8.9 mg/dL (8.4-10.2); Carbon Dioxide 22 mmol/L (22-29); Chloride 105 mmol/L (96-108); Creatinine Clr Calc Pharmacy 156.7; Estimated Glomerular Filt Rate > 60; Glucose Random 147 mg/dL (60-115); Potassium 3.5 mmol/L (3.3-5.1); Sodium 137 mmol/L (135-145)
--- NOTE | 2024-04-21 15:22 | PC.NURSE ---
Pt asleep in bed, will attempt admission assessment for primary RN when patient is more awake.
--- NOTE | 2024-04-21 15:33 | PHA.MEDREC ---
Pharmacy Consult ? Medication Reconciliation Pharmacy has completed the medication reconciliation. Reviewed med rec done by nursing; matches claim history
[2024-04-21] MEDS: Lactated Ringers 1,000 ML 100 ML IVCONT (16:35)
[2024-04-21] MEDS: ceFAZolin Sodium/Dextrose,Iso 2 GM/50 ML PIGGYBACK IV (17:54)
[2024-04-21] MEDS: Acetaminophen 1,000 MG/100 ML PIGGYBACK 16.7 MG IV (19:27)
[2024-04-21] MEDS: Famotidine/PF 20 MG/2 ML VIAL IVPUSH (21:00)
[2024-04-21] MEDS: 0.9 % Sodium Chloride Flush 3 ML SYRINGE IVFLUSH (21:00)
[2024-04-22] MEDS: Acetaminophen 1,000 MG/100 ML PIGGYBACK 16.7 MG IV ×2 (00:55→06:39)
[2024-04-22] MEDS: Lactated Ringers 1,000 ML 100 ML IVCONT (00:56)
[2024-04-22 04:00] VITALS: BP 113/62; PULSE 82; RESP 16; TEMP 36.7; O2SAT 94
[2024-04-22 06:13] LABS: MANUAL DIFF FLAG NO
[2024-04-22 06:38] LABS: Anion Gap 14 (12-20); Blood Urea Nitrogen 6 mg/dL (9-16); Carbon Dioxide 23 mmol/L (22-29); Chloride 105 mmol/L (96-108); Creatinine Clr Calc Pharmacy 186.5; Estimated Glomerular Filt Rate > 60; Glucose Random 114 mg/dL (60-115); Potassium 3.7 mmol/L (3.3-5.1); Sodium 138 mmol/L (135-145)
[2024-04-22 06:48] LABS: Basophils Percent Auto 0.2 % (0-2); Hematocrit 36.5 % (37.0-47.0); Hemoglobin 11.7 g/dl (12.0-16.0); Imm Gran Abs Auto 0.03 X10*3/uL (0.00-0.03); Imm Gran Pct Auto 0.3 % (0.0-0.4); Lymphocytes Absolute Auto 1.7 X10*3/uL (1.2-4.9); Lymphocytes Percent Auto 17.8 % (20-40); Mean Corpuscular HGB Conc 32.1 g/dl (31.0-35.0); Mean Corpuscular Hemoglobin 27.1 pg (27.0-33.0); Mean Corpuscular Volume 84.5 fL (80.0-98.0); Mean Platelet Volume 10.4 fL (9.4-12.3); Monocytes Absolute Auto 0.4 X10*3/uL (0.1-1.2); Monocytes Percent Auto 4.1 % (2-11); Neutrophils Absolute Auto 7.6 x10*3/uL (2.0-8.3); Neutrophils Percent Auto 77.6 % (45-73); Platelet Count 372 X10*3/uL (160-400); Red Blood Count 4.32 X10*6/uL (4.20-5.50); Red Cell Distribution Width 13.4 % (11.0-16.0); White Blood Count 9.8 X10*3/uL (4.8-10.8)
[2024-04-22 06:52] VITALS: BP 121/76; PULSE 82; RESP 16; TEMP 36.6; O2SAT 98
[2024-04-22] MEDS: Famotidine/PF 20 MG/2 ML VIAL IVPUSH (07:41)
--- NOTE | 2024-04-22 09:19 | MHC.CM.PN ---
CM MET WITH PT AT BEDSIDE. 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 WILLING TO COMPLETE A HCP. PCP [facility]. DP: PT HAS BEEN MEDICALLY CLEARED FOR DC HOME, NO SERVICES. [facility] WILL TRANSPORT
--- NOTE | 2024-04-22 10:58 | HO.POSTANES ---
Post Anesthesia Evaluation Post Anesthesia Evaluation Date of Service: 04/22/24 Vital Signs: Vital Signs Temp Pulse Resp BP Pulse Ox O2 Del Method 04/22/24 06:52 97.9 F 82 16 121/76 98 Room Air 04/22/24 04:00 98.0 F 82 16 113/62 94 Room Air Anesthesia: General Endotracheal-GETA Mental Status: Awake Pain Control: Satisfactory Nausea/Vomiting: None Hydration: Adequate Anesthesia-Related Issues: No Anes. Related Issues
== END 2024-04-22 11:22 | disposition home or self-care (01) | DRG 403 ==
LOC: HO.SSSA 13:42 → HO.S3 13:57
PROVIDERS: Anesthesiology; Physician Assistant Surgical; Admitting Provider Surgery; PCP Internal Medicine; Visit Provider Surgery
PROC: 0DB64Z3 Excision of Stomach, Percutaneous Endoscopic Approach, Vertical (ICD-10-PCS; CPT 43845; principal; 2024-04-21 11:10)
DX: E66.01 Morbid (severe) obesity due to excess calories (principal); K76.0 Fatty (change of) liver, not elsewhere classified; I45.10 Unspecified right bundle-branch block; K80.20 Calculus of gallbladder without cholecystitis without obstruction; K21.9 Gastro-esophageal reflux disease without esophagitis; Z68.41 Body mass index [BMI] 40.0-44.9, adult; Z79.899 Other long term (current) drug therapy
CPT/HCPCS: 36415; 80048; 81025; 85014; 85018; 85025; 86850; 86900; 86901; 88304; 88307; 88342; A4649; C9145; J0131; J0690; J1100; J1170; J1596; J2250; J2405; J2704; J2795; J3010; J7120

== ENCOUNTER → 2024-04-21 09:17 | Outpatient (BNV) | payer OTHER, SELFPAY | PROVIDERS: Admitting Provider Surgery; PCP Internal Medicine; Visit Provider Surgery | DX: E66.01 Morbid (severe) obesity due to excess calories (principal); Z68.41 Body mass index [BMI] 40.0-44.9, adult | CPT/HCPCS: 43659; 43775; 99024 ==

== ENCOUNTER 2024-04-28 11:53 | Outpatient (AMB) | payer OTHER, SELFPAY ==
--- NOTE | 2024-04-28 11:55 | A.OFFVIS_ITS ---
VS Expanded 04/28/24 12:02 BP 122/70 Blood Pressure Location Rt brachial Blood Pressure Position Sitting Pulse 76 Pulse Source Pulse Oximeter Temp 96.9 F Temperature Source Temporal Artery Scan Pulse Oximetry 98 Oxygen Delivery Method Room Air Height 5 ft 5 in Weight 260 lb 12.8 oz BMI 43.4 Body Fat % 46.4 Body Fat Mass 120.8 Fat Free Mass 139.8 Visceral Fat Rating 12.0 Body Water % 38.6 Body Water Mass 100.6 Muscle Mass/Score 132.8 Basal Metabolic Rate/Score 2,029 Intake Visit Reasons: (OV) PO LSG 04/21/24 Chiropractic Practice Manager Required: No Chiropractic Practice Manager Services: Chiropractic Practice Manager Offered & Declined Allergies No Known Allergies Allergy (Verified 04/28/24 11:58) HPI Comments Details: 24-year-old female returns to the office today in follow-up. She is 7 days post sleeve gastrectomy performed on 04/21/24. Patient is tolerating 3 celebrate 4 in 1 shakes with 1 scoop each proximally 40 oz of fluid and she has moved her bowels. Offers no complaints [facility] Medical History (Updated 04/21/24 @ 11:01 by Peewee Shane MD) Vitamin deficiency Anemia Morbid obesity Surgical History (Updated 04/28/24 @ 11:58 by Janet Choudhury CMA) S/P laparoscopic sleeve gastrectomy Hx laparoscopic cholecystectomy Social History Household Members: Family Housing: House Are you a primary healthcare market consultant to a significant other at home: No Do you presently have visiting nurse or other home services: No Alcohol intake: current Alcohol intake frequency: holidays/special occasions only Patient Tobacco Use Status: Never used Tobacco service: No Physical Exam Vital Signs: Last Vital Signs Temp 96.9 F 04/28/24 12:02 Pulse 76 04/28/24 12:02 BP 122/70 04/28/24 12:02 Pulse Ox 98 04/28/24 12:02 Oxygen Delivery Method Room Air 04/28/24 12:02 BMI result Body Mass Index 43.4 GI Inspection: Yes incision (Clean dry and intact) Assessment & Plan Assessment & Plan (1) S/P laparoscopic sleeve gastrectomy: Code(s): Z98.84 - Bariatric surgery status Category: Surgical Plan: POD 7 s/p LSG on 04/21/[address] Shane Weight loss prior to surgery was 43.4 pounds or 13.7 % TBWL. Original weight on 11/02/2023 was 314.6 pounds and op weight was 271.2 pounds. Be sure to text Dr Shane exactly 1 week after surgery your weight from your home scale so he can adjust your meal plan. Continue meal plan until f/u w Dyan in 2 weeks May shower, no submersion in bath for another week Continue abdominal binder with activity and exercise for the next 2 weeks. Exercise prior to surgery was walking outside and may resume No abdominal exercises for 6 weeks post operatively Will be emailed link to post op video for review Reminded of the pace of drinking, 2 mL per minute, 1 oz/15 min.
[2024-04-28 12:02] VITALS: BP 122/70; PULSE 76; TEMP 36.1; O2SAT 98; BMI 43.4
== END 2024-04-28 12:25 | disposition home or self-care (01) ==
LOC: HO.HBS 11:53
PROVIDERS: PCP Internal Medicine; Visit Provider Physician Assistant Surgical
DX: Z98.84 Bariatric surgery status (principal)
CPT/HCPCS: 99024

== ENCOUNTER → 2024-04-28 11:53 | Outpatient (BNVA) | payer OTHER, SELFPAY | PROVIDERS: PCP Internal Medicine; Visit Provider Physician Assistant Surgical | DX: Z90.3 Acquired absence of stomach [part of] (principal) | CPT/HCPCS: 99212 ==

== ENCOUNTER → 2024-05-16 13:31 | Outpatient (BNVA) | payer OTHER, SELFPAY | PROVIDERS: PCP Internal Medicine; Visit Provider Physician Assistant Surgical | DX: Z48.815 Encounter for surgical aftercare following surgery on the digestive system (principal); E66.01 Morbid (severe) obesity due to excess calories; Z98.84 Bariatric surgery status; Z68.41 Body mass index [BMI] 40.0-44.9, adult | CPT/HCPCS: 99212 ==

== ENCOUNTER 2024-05-16 13:32 | Outpatient (AMB) | payer OTHER, SELFPAY ==
--- NOTE | 2024-05-16 13:32 | MHC.OFFVISWM ---
VS Expanded 05/16/24 13:39 BP 109/62 Blood Pressure Location Rt brachial Blood Pressure Position Sitting Pulse 65 Pulse Source Pulse Oximeter Temp 98.6 F Temperature Source Temporal Artery Scan Pulse Oximetry 97 Oxygen Delivery Method Room Air Height 5 ft 5 in Weight 249 lb BMI 41.4 Body Fat % 44.6 Body Fat Mass 110.8 Fat Free Mass 138.0 Visceral Fat Rating 10.0 Body Water % 39.9 Body Water Mass 99.2 Muscle Mass/Score 131.0 Basal Metabolic Rate/Score 1,989 Intake Visit Reasons: (OV) PO LSG 04/21/24 Allergies No Known Allergies Allergy (Verified 04/28/24 11:58) Medication List - Last Reconciled 05/16/24 by ABNER Gomez pantoprazole 40 mg PO DAILY sucralfate (Carafate) 10 mL PO BID HPI Comments Details: This?is a?24?yo female who is s/p LSG 04/21/2024. Presents for 3 week post op visit. Weight at last visit on 04/28/2024 was 260.8 pounds with a BMI of 43.4, weight today is 249 pounds, representing an 11.2 pound weight loss with a BMI today of 41.4.? No complaints of nausea, emesis, abdominal pain or reflux, or constipation. 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 Present meal plan includes: 8-10am Celebrate 4:1 2 scoops 11am-1pm Celebrate 4:1 2 scoops 2-4pm Rebuild 5-8pm Celebrate bar getting adequate fluids Exercise routine includes: walking, plans to start the gym tomorrow [facility] Medical History (Updated 04/30/24 @ 00:02 by Background Daemon) Vitamin deficiency Anemia Morbid obesity Surgical History (Updated 04/30/24 @ 00:02 by Background Daemon) S/P laparoscopic sleeve gastrectomy Hx laparoscopic cholecystectomy Social History Household Members: Family Housing: House Are you a primary landcare facilitator to a significant other at home: No Do you presently have visiting nurse or other home services: No Alcohol intake: current Alcohol intake frequency: holidays/special occasions only Patient Tobacco Use Status: Never used Tobacco service: No Assessment & Plan Assessment & Plan (1) S/P laparoscopic sleeve gastrectomy: Code(s): Z98.84 - Bariatric surgery status Category: Surgical (2) Morbid obesity: Code(s): E66.01 - Morbid (severe) obesity due to excess calories Category: Medical Plan Pt to continute texting Dr. Mckeon weekly on with measurements. Discussed lifting restrictions until 6w postop. Will monitor dizziness- sounds positional, unlikely cardiac origin considering she is young and otherwise without medical issues, she will let us know if symptoms worsen. RTC 3 weeks. I spent a total of 30 minutes reviewing/updating records, examining the patient and counseling the patient on weight management as detailed above.
[2024-05-16 13:39] VITALS: BP 109/62; PULSE 65; TEMP 37; O2SAT 97; BMI 41.4
== END 2024-05-16 13:55 | disposition home or self-care (01) ==
PROVIDERS: PCP Internal Medicine; Visit Provider Physician Assistant Surgical
DX: E66.01 Morbid (severe) obesity due to excess calories (principal); Z68.41 Body mass index [BMI] 40.0-44.9, adult; Z98.84 Bariatric surgery status
CPT/HCPCS: 99024

== ENCOUNTER 2024-06-14 12:51 | Outpatient (AMB) | payer OTHER, SELFPAY ==
--- NOTE | 2024-06-14 12:31 | MHC.OFFVISWM ---
VS Expanded 06/14/24 12:36 Height 5 ft 5 in Weight 239 lb BMI 39.8 Intake Visit Reasons: (TV) PO LSG 04/21/24 Substation Electrician Supervisor Required: Yes Substation Electrician Supervisor Name: [id number] Information Interpreted: clinical only Allergies No Known Allergies Allergy (Verified 04/28/24 11:58) Medication List - Last Reconciled 06/14/24 by ABNER Gomez pantoprazole 40 mg PO DAILY sucralfate (Carafate) 10 mL PO BID HPI Comments Details: This?is a?24?yo female who is s/p LSG 04/21/2024. Presents for 8 week post op visit. Weight at last visit on 05/16/2024 was 249 pounds with a BMI of 41.4, weight today is 239 pounds, representing a 10 pound weight loss with a BMI today of 39.8.? No complaints of nausea, emesis, abdominal pain or reflux, or constipation. Present meal plan includes: 8-10am Celebrate 4:1 2 scoops 11am-1pm Celebrate 4:1 2 scoops 2-4pm Rebuild 5-8pm Celebrate bar getting adequate fluids Exercise routine includes: going to the gym, walking on treadmill PFSH Medical History (Updated 06/14/24 @ 12:39 by ABNER Gomez) Vitamin deficiency Anemia Morbid obesity Surgical History (Updated 04/30/24 @ 00:02 by Yajaira Brown) S/P laparoscopic sleeve gastrectomy Hx laparoscopic cholecystectomy Social History (Reviewed 04/28/24 @ 11:58 by Janet Choudhury [facility]) Household Members: Family Housing: House Are you a primary clinical care leader to a significant other at home: No Do you presently have visiting nurse or other home services: No Alcohol intake: current Alcohol intake frequency: holidays/special occasions only Patient Tobacco Use Status: Never used Tobacco service: No Telehealth Telehealth Telehealth Platform: Telephone Location of provider rendering services: other Location of patient: address on file Patient Identification confirmed using: Name, : Yes Telehealth method: voice only Patient verbally consented to treatment: Yes Patient verbally consented to billing insurance company: Yes Patient informed of any privacy concerns related to visit: Yes Minutes spent on Phone/Video with Pt.: 15 Assessment & Plan Assessment & Plan (1) S/P laparoscopic sleeve gastrectomy: Code(s): Z98.84 - Bariatric surgery status Category: Surgical (2) Obesity: Code(s): E66.9 - Obesity, unspecified Category: Medical Plan Pt to continue texting Dr Mckeon weekly with weight measurements. Cleared for all activity, no lifting restrictions. Complete PPI and carafate this month. RTC 4-6 weeks, pt requests phone call visit. I spent a total of 30 minutes reviewing/updating records, examining the patient and counseling the patient on weight management as detailed above.
[2024-06-14 12:36] VITALS: BMI 39.8
== END 2024-06-14 13:01 | disposition home or self-care (01) ==
LOC: HO.HBS 12:51
PROVIDERS: PCP Internal Medicine; Visit Provider Physician Assistant Surgical
DX: E66.9 Obesity, unspecified (principal); Z68.39 Body mass index [BMI] 39.0-39.9, adult; Z90.3 Acquired absence of stomach [part of]; Z98.84 Bariatric surgery status
CPT/HCPCS: 99024

== ENCOUNTER → 2024-06-14 12:51 | Outpatient (BNVA) | payer OTHER, SELFPAY | PROVIDERS: PCP Internal Medicine; Visit Provider Physician Assistant Surgical ==